=== PATIENT | female | born 1965 ===

== ENCOUNTER 2020-11-11 16:39 | Emergency (ER) | payer MEDICAID, SELFPAY ==
--- NOTE | ~2020-11-11 | CT_ITS ---
EXAMINATION: CT CHEST WITHOUT CONTRAST CLINICAL INFORMATION: Central chest pain radiating to back. HIV-positive not on medication COMPARISON: Chest radiograph 05/16/2017 TECHNIQUE: Multidetector volumetric CT imaging of the chest was done. Axial MIP volume rendering provided. Sagittal and coronal reformatted images were obtained. This CT examination was performed using dose optimization techniques as appropriate, variously including the following: *Automated exposure control *Adjustment of mA and/or kV according to patient size (this includes techniques or standardized protocols for targeted exams where dose is matched to indication/reason for exam; i.e. extremities or head) *Use of iterative reconstruction technique DLP: 164 mGy-cm FINDINGS: LUNGS: Multiple areas of tree-in-bud formation are present in both lungs indicative of airway disease. For example see right upper lobe (5:127) and left upper lobe (5:196). Scattered other small pulmonary nodules are seen the largest measuring 3 mm (5:118). There are is one branching cavitary space which probably represents some bronchiectasis (see lion images and 5:125). MEDIASTINUM: The esophagus is markedly thickened throughout its course suggesting marked esophagitis PLEURA: There is no pleural effusion. No pleural mass or thickening. AXILLA: No lymphadenopathy. UPPER ABDOMEN: An incompletely imaged left staghorn renal calculus is present in the pelvis extending into some lower pole calyces. Gallstones appear to be present. OSSEOUS STRUCTURES: Unremarkable. CT/CT chest wo con IMPRESSION: 1. Marked thickening of the entire esophagus most likely esophagitis. The most common cause in AIDS patients is related to Rosa Maria. This could obviously cause chest pain. Endoscopy or barium swallow could be performed for further evaluation. 2. Inflammatory changes in the lungs with multiple areas of tree-in-bud formation and some small pulmonary nodules. One small branching cavitary space as described above. 3. Incidentally noted left staghorn renal calculus and probable cholelithiasis
[2020-11-11 16:48] VITALS: BP 110/70; BP 97/61; PULSE 70; PULSE 76; RESP 20; TEMP 36.9; O2SAT 97; BMI 20.2
[2020-11-11 17:03] VITALS: BP 115/84
--- NOTE | 2020-11-11 18:29 | ED_ITS ---
HPI - General Adult General Chief complaint: General Medical Stated complaint: HIGH HR/LO BP FROM MD OFFICE PER EMS VS BETTER NOW Time Seen by Provider: 11/11/20 17:52 Source: patient Mode of arrival: EMS Limitations: no limitations History of Present Illness HPI narrative: Patient is a 55-year-old female with a past medical history of HIV infection, not on antivirals, CKD state III, shingles, herpes simplex, asth ma and tobacco use however patient states she quit smoking about a month ago c/o pain with swallowing x 1 month. Patient her throat started hurting, worse when she was swallowing so she reduced her p.o. intake and has had some weight loss, unsure how much. Patient also states that she has pain in her mid chest which radiates to her back. She denies fevers, cough, shortness of breath Patient has records with her which show her labs on 10/06/2020 CD4 count of 23, viral load of 147,000. Patient states she stopped making medications when she ran out when COVID hit in August 2019 and she has not been back to the doctors to get more medications. Related Data Previous Rx's Medication Instructions Recorded nystatin 500,000 unit PO QID 10 Days #200 ml 11/11/20 Allergies Allergy/AdvReac Type Severity Reaction Status Date / Time nevirapine [From VIRAMUNE] Allergy Unknown UNKNOWN Unverified 02/19/20 15:35 penicillin V Allergy Unknown itchy Verified 07/21/15 00:00 Penicillins [PENICILLINS] Allergy Unknown N/A Unverified 02/19/20 15:35 sulfamethoxazole Allergy Unknown UNKNOWN, Unverified 02/19/20 15:35 [From BACTRIM] upset stomach trimethoprim [From BACTRIM] Allergy Unknown UNKNOWN Unverified 02/19/20 15:35 Review of Systems Review of Systems: Yes all other systems are reviewed and are negative PMFSH Past Medical History Medical History No known health problems Social History Social History Patient Tobacco Use Status: Former Tobacco user Use of substances other than those prescribed or required for medical reasons: No Advance Directives: No Advance Directives Information Provided: No Physical Exam Vital Signs: Vital Signs: Last Vital Signs Temp 98.4 F 11/11/20 16:48 Pulse 89 11/11/20 18:46 Resp 20 11/11/20 18:46 BP 102/66 11/11/20 18:46 Pulse Ox 95 11/11/20 18:46 Body Mass Index 20.2 Const: General: cooperative, healthy appearing, comfortable, no acute distress and well developed Orientation/consciousness: patient oriented x3 Limitations: no limitations HENMT: Head: Yes normal to inspection Eyes: General: appearance normal, both eyes and all related structures Neck: Neck: Yes normal visual inspection and Yes full ROM Resp: Effort & Inspection: normal respiratory effort and able to speak in complete sentences Auscultation: clear to auscultation bilaterally Cardio: Rate: regular rate Rhythm: regular rhythm Heart sounds: normal S1 and S2 GI: Inspection: Yes normal to inspection Palpation (GI): Soft to palpation and nontender Skin: General skin exam: no rashes or lesions noted Neuro: General: patient oriented x3 Extrem: General: Yes normal to inspection Course Course Course Narrative: Patient is a 55-year-old female with a past medical history of HIV infection, not on antivirals, CKD state III, shingles, herpes simplex, asthma and tobacco use however patient states she quit smoking about a month ago c/o pain with swallowing x 1 month. Will give nystatin swish and swallow, concern for opportunistic infection. VSS now. Will get CD4 count as well as basic labs, EKG and chest CT. Reevaluation(s) Reevaluation #1: Chest CT shows has softened itis most likely secondary to Rosa Maria. Patient agrees received swish and swallow, will prescribe for outpatient and recommend barium swallow our upper endoscopy outpatient through PCP. Labs resulted so far are WNL, CD4 count and other HIV labs will not results today. Will discharge patient home with close follow up with PCP as VSS. Time: 19:29 Reevaluation #2: Discussed with patient, she says she has a appointment for an upper endoscopy on November 16. Advised she should keep this appointment to verify a thick esophagitis is due to Rosa Maria and not some other pathological process. Patient understands the importance of keeping this appointment and having the upper endoscopy done. Will discharge patient home. Time: 19:39 Medical Decision Making Lab Data Result diagrams: 11/11/20 18:33 11/11/20 18:33 Labs: Lab Results 11/11/20 11/11/20 11/11/20 Range/Units 18:33 18:33 18:33 WBC 9.6 (4.8-10.8) X10*3/uL RBC 4.05 L (4.20-5.50) X10*6/uL Hgb 12.0 (12.0-16.0) g/dl Hct 37.9 (37-47) % MCV 93.6 (80-98) fL MCH 29.6 (27.0-33.0) pg MCHC 31.7 (31.0-35.0) g/dl RDW 12.6 (11.0-16.0) % Plt Count 272 (160-400) X10*3/uL MPV 10.1 (9.4-12.3) fL Immature Gran % (Auto) 0.5 H (0.0-0.4) % Neut % (Auto) 69.2 (45-73) % Lymph % (Auto) 16.7 L (20-40) % Hamilton % (Auto) 9.2 (2-11) % Eos % (Auto) 4.3 H (0-4) % Baso % (Auto) 0.1 (0-2) % Lymph # (Auto) 1.6 (1.2-4.9) X10*3/uL Hamilton # (Auto) 0.9 (0.1-1.2) X10*3/uL Eos # (Auto) 0.4 (0.0-0.4) X10*3/uL Baso # (Auto) 0.0 (0.0-0.2) X10*3/uL Abs Immat Gran (auto) 0.05 H (0.00-0.03) X10*3/uL Absolute Neuts (auto) 6.6 (2.0-8.3) X10*3/uL Absolute Nucleated RBC 0.000 (0.0-0.012) X10*3/uL Nucleated RBC % (auto) 0.0 (0.0-0.2) /100WBC PT 14.7 H (10.8-13.0) SEC INR 1.2 H (0.9-1.1) APTT 29.9 (24.1-38.0) SEC Sodium 142 (135-145) mmol/L Potassium 3.9 (3.3-5.1) mmol/L Chloride 110 H (96-108) mmol/L Carbon Dioxide 24 (22-29) mmol/L Anion Gap 12 (12-20) BUN 20 H (9-16) mg/dL Creatinine 1.36 (0.5-1.4) mg/dL Estim Creat Clear Calc 31.5 Estimated GFR 40 Random Glucose 86 (60-115) mg/dL Calcium 8.7 (8.4-10.2) mg/dL Magnesium 1.7 (1.6-2.6) mg/dL Total Bilirubin 0.3 (0.0-1.0) mg/dL Direct Bilirubin 0.2 (0.0-0.5) mg/dL AST 15 (5-31) U/L ALT < 6 (0-31) U/L Alkaline Phosphatase 64 (39-117) U/L Troponin I High Sens (<3.5-17.0) ng/L Total Protein 6.8 (6.5-8.0) g/dL Albumin 3.6 (3.5-5.0) g/dL 11/11/20 Range/Units 18:33 WBC (4.8-10.8) X10*3/uL RBC (4.20-5.50) X10*6/uL Hgb (12.0-16.0) g/dl Hct (37-47) % MCV (80-98) fL MCH (27.0-33.0) pg MCHC (31.0-35.0) g/dl RDW (11.0-16.0) % Plt Count (160-400) X10*3/uL MPV (9.4-12.3) fL Immature Gran % (Auto) (0.0-0.4) % Neut % (Auto) (45-73) % Lymph % (Auto) (20-40) % Hamilton % (Auto) (2-11) % Eos % (Auto) (0-4) % Baso % (Auto) (0-2) % Lymph # (Auto) (1.2-4.9) X10*3/uL Hamilton # (Auto) (0.1-1.2) X10*3/uL Eos # (Auto) (0.0-0.4) X10*3/uL Baso # (Auto) (0.0-0.2) X10*3/uL Abs Immat Gran (auto) (0.00-0.03) X10*3/uL Absolute Neuts (auto) (2.0-8.3) X10*3/uL Absolute Nucleated RBC (0.0-0.012) X10*3/uL Nucleated RBC % (auto) (0.0-0.2) /100WBC PT (10.8-13.0) SEC INR (0.9-1.1) APTT (24.1-38.0) SEC Sodium (135-145) mmol/L Potassium (3.3-5.1) mmol/L Chloride (96-108) mmol/L Carbon Dioxide (22-29) mmol/L Anion Gap (12-20) BUN (9-16) mg/dL Creatinine (0.5-1.4) mg/dL Estim Creat Clear Calc Estimated GFR Random Glucose (60-115) mg/dL Calcium (8.4-10.2) mg/dL Magnesium (1.6-2.6) mg/dL Total Bilirubin (0.0-1.0) mg/dL Direct Bilirubin (0.0-0.5) mg/dL AST (5-31) U/L ALT (0-31) U/L Alkaline Phosphatase (39-117) U/L Troponin I High Sens < 3.5 (<3.5-17.0) ng/L Total Protein (6.5-8.0) g/dL Albumin (3.5-5.0) g/dL Imaging Data CT scan - chest: Attestation: I personally reviewed and interpreted this imaging study as follows: Radiologist's impression: [address] [id number] Scan ReportSigned Patient: Renetta TeeMR#: [id number]: 1965Acct:[id number]/Sex: 55 / FADM Date: 11/11/20Loc: Gaby Franks: Ordering Physician: Alexus Enriquez PA-C Date of Service: 11/11/20 Procedure(s): CT chest wo con Accession Number(s): [id number] cc: Alexus Enriquez PA-C~ EXAMINATION: CT CHEST WITHOUT CONTRAST CLINICAL INFORMATION: Central chest pain radiating to back. HIV-positive not on medication COMPARISON: Chest radiograph 05/16/2017 TECHNIQUE: Multidetector volumetric CT imaging of the chest was done. Axial MIP volume rendering provided. Sagittal and coronal reformatted images were obtained. This CT examination was performed using dose optimization techniques as appropriate, variously including the following: *Automated exposure control *Adjustment of mA and/or kV according to patient size (this includes techniques or standardized protocols for targeted exams where dose is matched to indication/reason for exam; i.e. extremities or head) *Use of iterative reconstruction technique DLP: 164 mGy-cm FINDINGS: LUNGS: Multiple areas of tree-in-bud formation are present in both lungs indicative of airway disease. For example see right upper lobe (5:127) and left upper lobe (5:196). Scattered other small pulmonary nodules are seen the largest measuring 3 mm (5:118). There are is one branching cavitary space which probably represents some bronchiectasis (see lion images and 5:125). MEDIASTINUM: The esophagus is markedly thickened throughout its course suggesting marked esophagitis PLEURA: There is no pleural effusion. No pleural mass or thickening. AXILLA: No lymphadenopathy. UPPER ABDOMEN: An incompletely imaged left staghorn renal calculus is present in the pelvis extending into some lower pole calyces. Gallstones appear to be present. OSSEOUS STRUCTURES: Unremarkable. CT/CT chest wo con IMPRESSION: 1. Marked thickening of the entire esophagus most likely esophagitis. The most common cause in AIDS patients is related to Rosa Maria. This could obviously cause chest pain. Endoscopy or barium swallow could be performed for further evaluation. 2. Inflammatory changes in the lungs with multiple areas of tree-in-bud formation and some small pulmonary nodules. One small branching cavitary space as described above. 3. Incidentally noted left staghorn renal calculus and probable cholelithiasis Dictated By:SANDOVAL PIERRE MDSigned By:<Electronically signed by SANDOVAL CAMPA MD in OV>11/11/201917 DD/ 57TD/TT: Fiber Glass Worker: HIEN Discharge Plan Discharge Clinical Impression: Esophagitis due to HIV Patient Disposition: Home, Self-Care Instructions: Esophagitis (ED) Additional Instructions: As discussed, please be sure to keep your appointment on November 16 for your upper endoscopy as this can confirm that your esophagitis is due to Rosa Maria and that no other processes going on. If you have chest pain, shortness of breath, throat swelling or your unable to swallow your own secretions, please call 911 or return to the emergency department. Prescriptions: New nystatin 100,000 unit/mL suspension 500,000 unit PO QID 10 Days Qty: 200 RF: 0 Referrals: Theodora Sampson MD [Primary Care Provider] - 1 week (Esophagitis likely secondary to Rosa Maria)
[2020-11-11 18:38] LABS: MANUAL DIFF FLAG NO
[2020-11-11 18:42] LABS: Basophils Percent Auto 0.1 % (0-2); Eosinophils Absolute Auto 0.4 X10*3/uL (0.0-0.4); Eosinophils Percent Auto 4.3 % (0-4); Hematocrit 37.9 % (37-47); Imm Gran Abs Auto 0.05 X10*3/uL (0.00-0.03); Imm Gran Pct Auto 0.5 % (0.0-0.4); Lymphocytes Absolute Auto 1.6 X10*3/uL (1.2-4.9); Lymphocytes Percent Auto 16.7 % (20-40); Mean Corpuscular HGB Conc 31.7 g/dl (31.0-35.0); Mean Corpuscular Hemoglobin 29.6 pg (27.0-33.0); Mean Corpuscular Volume 93.6 fL (80-98); Mean Platelet Volume 10.1 fL (9.4-12.3); Monocytes Absolute Auto 0.9 X10*3/uL (0.1-1.2); Monocytes Percent Auto 9.2 % (2-11); Neutrophils Absolute Auto 6.6 X10*3/uL (2.0-8.3); Neutrophils Percent Auto 69.2 % (45-73); Platelet Count 272 X10*3/uL (160-400); Red Blood Count 4.05 X10*6/uL (4.20-5.50); Red Cell Distribution Width 12.6 % (11.0-16.0); White Blood Count 9.6 X10*3/uL (4.8-10.8)
[2020-11-11] MEDS: Nystatin Oral Susp 500,000 UNIT/5 ML ORAL.SUSP 400000 UNIT PO (18:45)
[2020-11-11 18:46] VITALS: BP 102/66; PULSE 89; RESP 20; O2SAT 95
[2020-11-11 18:47] LABS: INTERNATIONAL NORM RATIO 1.2 (0.9-1.1); Prothrombin Time 14.7 SEC (10.8-13.0)
[2020-11-11 18:50] LABS: Partial Thromboplastin Time 29.9 SEC (24.1-38.0)
[2020-11-11 19:12] LABS: Alanine Aminotransferase < 6 U/L (0-31); Albumin Level 3.6 g/dL (3.5-5.0); Alkaline Phosphatase 64 U/L (39-117); Anion Gap 12 (12-20); Aspartate Amino Transferase 15 U/L (5-31); Bilirubin Direct 0.2 mg/dL (0.0-0.5); Bilirubin Total 0.3 mg/dL (0.0-1.0); Calcium 8.7 mg/dL (8.4-10.2); Carbon Dioxide 24 mmol/L (22-29); Chloride 110 mmol/L (96-108); Creatinine Clr Calc Pharmacy 31.5; Estimated Glomerular Filt Rate 40; Glucose Random 86 mg/dL (60-115); Magnesium 1.7 mg/dL (1.6-2.6); Potassium 3.9 mmol/L (3.3-5.1); Sodium 142 mmol/L (135-145); Total Protein 6.8 g/dL (6.5-8.0)
[2020-11-11 19:16] LABS: Troponin-I High Sensitivity < 3.5 ng/L (<3.5-17.0)
[2020-11-11 19:22] LABS: Blood Urea Nitrogen 20 mg/dL (9-16)
[2020-11-15 13:52] LABS: Absolute CD3 Count 1277 cells/uL (840-3060); Absolute CD4 Count 29 cells/uL (490-1740); Absolute CD8 Count 1248 cells/uL (180-1170); Absolute Lymphocytes 1496 cells/uL (850-3900); CD4 CD8 Ratio 0.02 (0.86-5.00); Percent CD3 Cells 85 % (57-85); Percent CD4 Cells 2 % (30-61); Percent CD8 Cells 83 % (12-42)
== END 2020-11-11 20:07 | disposition home or self-care (01) ==
PROVIDERS: Physician Assistant; Emergency Provider Emergency Medicine; PCP Family Medicine
DX: K20.90 Esophagitis, unspecified without bleeding (principal); B20 Human immunodeficiency virus [HIV] disease; N18.30 Chronic kidney disease, stage 3 unspecified; Z87.891 Personal history of nicotine dependence
CPT/HCPCS: 36415; 71250; 80048; 80076; 83735; 84484; 85025; 85610; 85730; 86359; 86360; 99284

== ENCOUNTER → 2020-11-16 11:43 | Outpatient (BNVA) | payer MEDICAID, SELFPAY | PROVIDERS: PCP Family Medicine; Referring Provider Family Medicine; Visit Provider Nurse Practitioner Family | DX: R13.10 Dysphagia, unspecified (principal); B20 Human immunodeficiency virus [HIV] disease | CPT/HCPCS: 99202 ==

== ENCOUNTER 2021-01-06 10:44 | Day surgery (SDC) | payer MEDICAID, SELFPAY ==
--- NOTE | 2021-01-05 09:01 | P.CONAN_ITS ---
Documented by User: Hillary Vo 01/05/21 09:05 HPI - Anesthesia Eval Consult details Narrative: 55yo F for Upper Endoscopy PMFSH Past Medical History Medical History Asthma CKD (chronic kidney disease) HIV infection Social History Social History Patient Tobacco Use Status: Former Tobacco user Tobacco use type: Cigarette Smoked in Last 30 Days: No Use of substances other than those prescribed or required for medical reasons: No Are you DNR?: No Advance Directives: No Advance Directives Information Provided: Yes Recently lost weight without trying: Yes How much weight loss: 14-23 pounds Nutrition Risks: No Nutritional Risk Patient : No Meds Allergies Allergy/AdvReac Type Severity Reaction Status Date / Time nevirapine [From VIRAMUNE] Allergy Unknown UNKNOWN Verified 11/16/20 11:52 penicillin V Allergy Unknown itchy Verified 11/16/20 11:52 Penicillins [PENICILLINS] Allergy Unknown N/A Verified 11/16/20 11:52 sulfamethoxazole Allergy Unknown UNKNOWN, Verified 11/16/20 11:52 [From BACTRIM] upset stomach trimethoprim [From BACTRIM] Allergy Unknown UNKNOWN Verified 11/16/20 11:52 Home Medications Medication Instructions Recorded Confirmed Last Taken Type albuterol sulfate 90 mcg/actuation 2 puff INHALATION Q6H PRN 11/16/20 Unknown History aerosol inhaler hydrocortisone 1 % topical cream 1 appl TOPICAL TID PRN 11/16/20 Unknown History (Anti-Itch (hydrocortisone)) Exam Exam Date and Time: January 05, 2021 0901 Pertinent Lab Results Pertinent Lab Results: Laboratory Tests 11/11/20 11/11/20 18:33 18:33 WBC 9.6 Hgb 12.0 Hct 37.9 Plt Count 272 Sodium 142 Potassium 3.9 Chloride 110 H Carbon Dioxide 24 BUN 20 H Creatinine 1.36 Laboratory Tests 11/11/20 18:33 Total Lymphocytes 1496 % CD3 Cells 85 Absolute CD3 Count 1277 % CD4 Cells 2 L Absolute CD4 Count 29 L CD4/CD8 Ratio 0.02 L % CD8 Cells 83 H Absolute CD8 Count 1248 H Assessment and Plan Assessment Anesthesia Assessment: Chart Reviewed Documented by User: Julian Butterfield 01/06/21 11:48 [facility] Past Medical History Medical History Asthma CKD (chronic kidney disease) HIV infection Cognitive capacity: AAO X3 Functional capacity: independent ambulation Family History Family history of problems with anesthesia: No Surgical History History of Problems with Anesthesia: No Social History Social History Patient Tobacco Use Status: Former Tobacco user Tobacco use type: Cigarette Smoked in Last 30 Days: No Use of substances other than those prescribed or required for medical reasons: No Are you DNR?: No Advance Directives: No Advance Directives Information Provided: Yes Recently lost weight without trying: Yes How much weight loss: 14-23 pounds Nutrition Risks: No Nutritional Risk Patient : No Meds Allergies Allergy/AdvReac Type Severity Reaction Status Date / Time nevirapine [From VIRAMUNE] Allergy Unknown UNKNOWN Verified 11/16/20 11:52 penicillin V Allergy Unknown itchy Verified 11/16/20 11:52 Penicillins [PENICILLINS] Allergy Unknown N/A Verified 11/16/20 11:52 sulfamethoxazole Allergy Unknown UNKNOWN, Verified 11/16/20 11:52 [From BACTRIM] upset stomach trimethoprim [From BACTRIM] Allergy Unknown UNKNOWN Verified 11/16/20 11:52 Home Medications Medication Instructions Recorded Confirmed Last Taken Type albuterol sulfate 90 mcg/actuation 2 puff INHALATION Q6H PRN 11/16/20 Unknown History aerosol inhaler hydrocortisone 1 % topical cream 1 appl TOPICAL TID PRN 11/16/20 Unknown History (Anti-Itch (hydrocortisone)) Exam Airway Mallampati Class: II TM Dist: >3cm Neck ROM: Full Denture: Upper and Lower Heart: [id number] Lungs: cta b/l Assessment and Plan Assessment Anesthesia Assessment: Anesthesia Plan Discussed and PAT Visit Final Anesthetic Review Family History of Problems with Anesthesia: No History of Problems with Anesthesia: No NPO: Yes ASA Class: III Final Preanesthetic Review: No Changes in Pt Med Stat, Meds/Allgs Chart Reviewed, Consent Obtained/Reviewed and Anes Risks/Benef Reviewed Patient Risk: Intermediate Procedure Risk: Low Assessment/Block/Sedation in SS: Assess/Block/Sedation-SS Anesthetic Plan Anesthetic Plan: MAC: and Agree w/ Assess. and Plan Disposition: Standard PACU
[2021-01-06 10:49] VITALS: BMI 21.6
[2021-01-06 11:01] VITALS: BP 117/75; PULSE 61; RESP 16; TEMP 36.3; O2SAT 97
[2021-01-06] MEDS: Lactated Ringers 1,000 ML 50 ML IVCONT (11:10)
--- NOTE | 2021-01-06 11:15 | MHC.SHP ---
Pre-Procedural Eval Section A Date of Service: 01/06/21 Section B Chief Complaint: dysphagia Details of Present Illness: sx much improved with nystatin Relevant Family History (Specify if Yes): No Relevant Social History: None (ex smoker) Medical History: Significant History (istory of HIV infection, not on antivirals, CKD state III, shingles, herpes simplex, asthma) History of Previous Operations: No relevant previous surgery Allergies: Allergies Allergy/AdvReac Type Severity Reaction Status Date / Time nevirapine [From VIRAMUNE] Allergy Unknown UNKNOWN Verified 11/16/20 11:52 penicillin V Allergy Unknown itchy Verified 11/16/20 11:52 Penicillins [PENICILLINS] Allergy Unknown N/A Verified 11/16/20 11:52 sulfamethoxazole Allergy Unknown UNKNOWN, Verified 11/16/20 11:52 [From BACTRIM] upset stomach trimethoprim [From BACTRIM] Allergy Unknown UNKNOWN Verified 11/16/20 11:52 Review of Systems Sugical H&P ROS: Negative: Constitution, Cardiovascular, Respiratory, Neurological, Psychiatric, Hem-Onc, Allergic/Immunologic, Gastrointestinal, Genitourinary, Musculoskeletal, Integumentary, Endocrine and Eyes/Ears/Nose/Throat Exam Surgical H&P Exam: Normal: HEENT, Normal: Heart, Normal: Lungs, Normal: Extremities, Normal: Abdomen, Normal: Skin and Normal: Neurological Plan Diagnosis/Plan: Unchanged I have reviewed the history and physical and performed a pertinent physical examination on my patient. No changes have occurred unless specified.
--- NOTE | 2021-01-06 11:43 | P.BOP_ITS ---
Brief Operative Note Date of Service: 01/06/21 Pre-op diagnosis: dysphagia and painful swallowing Post-op diagnosis: same Procedure: see op note Surgeon: Zayda Baltazar MD Anesthesia: MAC Was an Wood Heel Flap Rubber used for this Procedure?: No Estimated blood loss (mL): 0 Condition: stable Disposition: PACU
--- NOTE | 2021-01-06 11:43 | W.PM.OPN ---
Operative Note Operative Note Date of Service: 01/06/21 Narrative: Procedure Description: EGD FLEXIBLE TRANSORAL UPPER GASTROINTESTINAL ENDOSCOPY UPPER ENDOSCOPY Consent: Indications for the procedure and potential complications of bleeding, perforation, reaction to medications and missed diagnosis were discussed with the patient and informed consent was obtained. Instrument: Olympus GIF H 190 J mid size upper endoscope Monitoring: Vital signs and clinical assessment, continuous EKG monitoring, Pulse oximetry, Carbon Dioxide monitoring and blood pressure monitoring were done throughout the procedure. Procedure: The patient was placed in the left lateral decubitis position and pre-procedure medications were administered and a bite block was placed. The endoscope was inserted into the mouth and advanced under direct vision to the third part of duodenum. A careful inspection was made as the upper endoscope was withdrawn including a retroflexed examination of the proximal stomach; Findings and interventions are described below. Findings: Larynx:normal Esophagus: GE junction at 38 cm, diaphragm hiatus at 38 cm, few islands of edward appearing mucosa, bx taken, random esophagus bx also taken, no ulcers seen Stomach: Patchy gastric erythema. Biopsies were obtained. Grade 2 flap valve on retroflexed examination of the cardia. In fundus there was a whitish polypoid lesion with nodular appearance 8-9 mm removed with biopsy forceps Duodenum: Normal bulb and descending duodenum, bx taken Intervention: Biopsies as noted above Impression/Findings: stomach polyp gastritis possible barretts PLAN: await bx she feels better, may have had key hence improvement with nystatin
[2021-01-06 12:10] VITALS: BP 98/76; PULSE 76; RESP 14; TEMP 36.1; O2SAT 98
[2021-01-06 12:25] VITALS: BP 94/57; PULSE 69; RESP 16; O2SAT 98
[2021-01-06 12:40] VITALS: BP 110/74; PULSE 64; RESP 16; TEMP 36.1; O2SAT 99
== END 2021-01-06 13:50 | disposition home or self-care (01) ==
PROVIDERS: PCP Family Medicine; Visit Provider Internal Medicine Gastroenterology
PROC: 0DJ08ZZ Inspection of Upper Intestinal Tract, Via Natural or Artificial Opening Endoscopic (ICD-10-PCS; CPT 43235; principal; 2021-01-06 12:10)
DX: R13.10 Dysphagia, unspecified (principal); K31.7 Polyp of stomach and duodenum; K44.9 Diaphragmatic hernia without obstruction or gangrene; N18.9 Chronic kidney disease, unspecified; B20 Human immunodeficiency virus [HIV] disease; J45.909 Unspecified asthma, uncomplicated; Z87.891 Personal history of nicotine dependence; Z79.899 Other long term (current) drug therapy; Z88.0 Allergy status to penicillin; Z88.2 Allergy status to sulfonamides; K29.50 Unspecified chronic gastritis without bleeding
CPT/HCPCS: 43239; 88305; 88342

== ENCOUNTER 2021-01-17 09:48 | Outpatient (REF) | payer MEDICAID, SELFPAY ==
--- NOTE | ~2021-01-17 | XR_ITS ---
EXAMINATION: XR CHEST CLINICAL INFORMATION: Wheezing. COMPARISON: CT chest dated 11/11/2020. TECHNIQUE: 2 views of the chest were obtained. FINDINGS: The lungs are clear. The cardiomediastinal silhouette is normal in size. There is no pleural effusion or pneumothorax. No acute osseous abnormality. XR/XR chest 2V IMPRESSION: No acute cardiopulmonary findings.
--- NOTE | ~2021-01-17 | MM_ITS ---
EXAMINATION: MM SCREENING DIGITAL BREAST TOMOSYNTHESIS, BILATERAL CLINICAL INFORMATION: Screening. Asymptomatic. The lifetime risk of breast cancer based on the Tyrer-Cuzick Model is 9%. COMPARISON: Mammography: 08/28/2018, 08/20/2017, 02/15/2017 TECHNIQUE: Digital breast tomosynthesis is performed in both the craniocaudal and mediolateral oblique views along with computer-aided detection (CAD). Synthesized 2D images are generated from the tomosynthesis. FINDINGS: There are scattered areas of fibroglandular density (ACR BI-RADS breast composition Category b). There are no significant masses, abnormal calcifications, or other abnormalities. Parenchymal pattern is similar to prior studies. The axilla and skin contours are unremarkable. MM/MM tomosynthesis screening BI IMPRESSION: No mammographic evidence of malignancy. ASSESSMENT: BI-RADS 1: Negative RECOMMENDATION: Routine annual mammography screening. This patient's information was entered into a reminder system with a target due date for their next mammogram.
== END 2021-01-17 09:49 | disposition home or self-care (01) ==
LOC: HO.MAMMO 09:48
PROVIDERS: PCP Family Medicine; Visit Provider Family Medicine
DX: Z12.31 Encounter for screening mammogram for malignant neoplasm of breast (principal); R06.2 Wheezing; R09.89 Other specified symptoms and signs involving the circulatory and respiratory systems; R91.8 Other nonspecific abnormal finding of lung field
CPT/HCPCS: 71046; 77063; 77067

== ENCOUNTER → 2021-02-01 09:56 | Outpatient (BNVA) | payer MEDICAID, SELFPAY | PROVIDERS: PCP Family Medicine; Visit Provider Nurse Practitioner Family | DX: K21.9 Gastro-esophageal reflux disease without esophagitis (principal) | CPT/HCPCS: 99212 ==

== ENCOUNTER 2021-04-15 13:06 | Emergency (ER) | payer MEDICAID, SELFPAY ==
--- NOTE | ~2021-04-15 | XR_ITS ---
EXAMINATION: RIGHT KNEE X-RAY CLINICAL INFORMATION: Pain COMPARISON: Previous x-ray September 2016 TECHNIQUE: 4 views of the right knee FINDINGS: Bone alignment is normal. No fracture or dislocation is seen. The joint spaces are normal. There is no joint effusion. XR/XR knee RT 4V IMPRESSION: Normal exam. EXAMINATION: Right foot x-ray CLINICAL INFORMATION: Pain right first and second toes COMPARISON: None. TECHNIQUE: 3 views of the right foot FINDINGS: Bone alignment is normal. No fracture or dislocation is seen. There is arthritis at the first MTP joint with joint space narrowing and osteophyte formation. There is adjacent soft tissue swelling over the medial first metatarsal head. No erosive changes or soft tissue calcification is seen. Joint spaces and soft tissues are otherwise unremarkable. IMPRESSION: Arthritis at the first MTP joint.
--- NOTE | ~2021-04-15 | XR_ITS ---
EXAMINATION: RIGHT KNEE X-RAY CLINICAL INFORMATION: Pain COMPARISON: Previous x-ray September 2016 TECHNIQUE: 4 views of the right knee FINDINGS: Bone alignment is normal. No fracture or dislocation is seen. The joint spaces are normal. There is no joint effusion. XR/XR foot RT 2V IMPRESSION: Normal exam. EXAMINATION: Right foot x-ray CLINICAL INFORMATION: Pain right first and second toes COMPARISON: None. TECHNIQUE: 3 views of the right foot FINDINGS: Bone alignment is normal. No fracture or dislocation is seen. There is arthritis at the first MTP joint with joint space narrowing and osteophyte formation. There is adjacent soft tissue swelling over the medial first metatarsal head. No erosive changes or soft tissue calcification is seen. Joint spaces and soft tissues are otherwise unremarkable. IMPRESSION: Arthritis at the first MTP joint.
[2021-04-15 13:37] VITALS: BP 136/81; PULSE 61; RESP 18; TEMP 36.7; O2SAT 94; BMI 21.6
--- NOTE | 2021-04-15 14:23 | ED_ITS ---
HPI - Extremity Problem General Chief complaint: General Medical Stated complaint: knee & foot pain Time Seen by Provider: 04/15/21 13:52 Source: patient Mode of arrival: ambulatory Limitations: no limitations History of Present Illness HPI Narrative: 55-year-old female with a past medical history of HIV, shingles, asthma and CKD presenting to the ED with complaints of right knee pain for years due to a shingles infection she had years ago and she also complains of a separate complaint of right great toe pain/swelling/redness for the past few days worse today. Denies any other symptoms complaints or concerns at this time. Denies a history of gout. MD Complaint: extremity pain and extremity swelling Onset (ago): day(s) (For the past few days worse today) Pain Consistency: constant Location: right, lower extremity (Knee) and toe (Great) Severity scale (1-10): >10 Quality: aching and constant Radiation: none Relieving factors: nothing Exacerbating factors: range of motion, weight bearing, walking and palpation Associated symptoms: denies other symptoms Context: other (History of shingles to the right knee and since then has been having this pain for years to the right knee) Related Data Home Medications Medication Instructions Recorded Confirmed albuterol sulfate 90 mcg/actuation 2 puff INHALATION Q6H PRN 11/16/20 aerosol inhaler hydrocortisone 1 % topical cream 1 appl TOPICAL TID PRN 11/16/20 (Anti-Itch (hydrocortisone)) Previous Rx's Medication Instructions Recorded nystatin 100,000 unit/mL oral 500,000 unit (5 mL) PO QID 10 Days 11/16/20 suspension #200 ml pantoprazole 40 mg tablet,delayed 40 mg PO DAILY #30 tab 02/01/21 release cephalexin 500 mg capsule 500 mg PO Q6H 10 Days #40 cap 04/15/21 doxycycline monohydrate 100 mg 100 mg PO BID 10 Days #20 cap 04/15/21 capsule indomethacin 50 mg capsule 50 mg PO Q8H 7 Days #21 cap 04/15/21 oxycodone 5 mg tablet 5 mg PO Q6H PRN #14 tab 04/15/21 prednisone 20 mg tablet 40 mg PO DAILY 5 Days #10 tab 04/15/21 Allergies Allergy/AdvReac Type Severity Reaction Status Date / Time nevirapine [From VIRAMUNE] Allergy Unknown UNKNOWN Verified 04/15/21 13:36 penicillin V Allergy Unknown itchy Verified 04/15/21 13:36 Penicillins [PENICILLINS] Allergy Unknown N/A Verified 04/15/21 13:36 sulfamethoxazole Allergy Unknown UNKNOWN, Verified 04/15/21 13:36 [From BACTRIM] upset stomach trimethoprim [From BACTRIM] Allergy Unknown UNKNOWN Verified 04/15/21 13:36 Review of Systems Review of Systems: Constitutional : No Weight loss, No Fever, No Chills, No Night Sweats, No Fatigue, No Malaise ENT/Mouth : No Hearing loss, No Ear Pain, No Nasal Congestion, No Sinus Pain, No Hoarseness, No sore throat, No Rhinorrhea, No Swallowing Difficulty Eyes: No Eye Pain, No Swelling, No Redness, No Foreign Body, No Discharge, No Vision Changes Cardiovascular : No Chest Pain, No SOB, No Dyspnea on Exertion, No Orthopnea, No Edema, No Palpitations Respiratory : No Cough, No Sputum, No Wheezing, No Smoke Exposure, No Dyspnea Gastrointestinal : No Nausea, No Vomiting, No Diarrhea, No Constipation, No abdominal Pain, No Hematochezia, No Melena Genitourinary : no irregular bleeding, No Dysuria, No Urinary Frequency, No Hematuria, No Urinary Incontinence, No Urgency, No Flank Pain, No Urinary Flow Changes, No Hesitancy Musculoskeletal : + right knee joint pain, + right great toe/2nd toe joint pain/swelling/surrounding erythema, No Myalgias Skin : No Skin Lesions, No rash Neuro : No Weakness, No Numbness, No Paresthesias, No Loss of Consciousness, No Dizziness, No Headache Psych : No Anxiety/Panic, No Depression, No SI/HI/AH/VH, No Social Issues, Heme/Lymph: No Bruising, No Bleeding,No Lymphadenopathy Endocrine : No Polyuria, No Polydipsia, No Temperature Intolerance Yes all other systems are reviewed and are negative [facility] Past Medical History Attestation statement: The following information was validated with the patient. Medical History Asthma CKD (chronic kidney disease) HIV infection Shingles Surgical History Hx of esophagogastroduodenoscopy Social History Social History Patient Tobacco Use Status: Former Tobacco user Tobacco use type: Cigarette Advance Directives: No Advance Directives Information Provided: No Patient : No Physical Exam Vital Signs: Vital Signs: Last Vital Signs Temp 98.1 F 04/15/21 13:37 Pulse 61 04/15/21 13:37 Resp 18 04/15/21 13:37 BP 136/81 04/15/21 13:37 Pulse Ox 94 04/15/21 13:37 Body Mass Index 21.6 vital signs have been reviewed as normal and appeared to be correct. Blood pressure normal. Heart rate normal. Respiration rate normal. Temperature normal. Oxygen saturation normal. Appearance: Alert. Oriented X3. No acute distress. Head: Normal external exam. Normocephalic. Atraumatic. Eyes: PERRLA. EOMI. Conjunctiva and sclera normal. Eyelids normal. ENT: Pharynx normal. Uvula midline. Moist mucous membranes. Neck: Normal inspection. Neck supple. FROM. No adenopathy. No meningeal signs. No neck mass noted. CVS: Normal heart rate and rhythm. Heart sound normal. Pulses normal throughout. No murmurs/rales/gallops. Respiratory: No respiratory distress. Painless inspiration. Breath sounds normal. No wheezes/rales/rhonchi noted. Chest nontender. No accessory muscle usage noted or decreased air movement noted. Back: Full range of motion noted. No rashes/lesion/induration/fluctuance or signs of infection noted. Skin: Skin warm and dry. Normal skin color. Normal skin turgor. No rashes/lesions/lacerations noted. Extremities: Patient with tenderness to palpation to the right medial aspect of the knee no obvious ligamentous or tendon injury. No signs of infection. No lower extremity edema or calf tenderness is noted. To the right great toe/2nd toe at the MTP patient has moderate tenderness all patient/soft tissue swelling/erythema I am between gout and cellulitis. Otherwise no streaki ng/induration/fluctuance or foreign bodies or obvious signs of trauma or obvious ligamentous or tendon injury. Otherwise all other Extremities exhibit normal range of motion and nontender. Neuro: Oriented X 3. No motor deficit. No sensory deficit. Reflexes normal. Normal steady gait. No focal neuro deficits noted. Vascular: + radial pulses/+ 2 distal pedal pulses/+2 dorsalis pedis b/l. Normal cap refill. No cyanosis noted to upper extremity nails and lower extremity toes nails. Course Course Course Narrative: 55-year-old female with a past medical history of HIV, shingles, asthma and CKD presenting to the ED with complaints of right knee pain for years due to a shingles infection she had years ago and she also complains of a separate complaint of right great toe pain/swelling/redness for the past few days worse today. Denies any other symptoms complaints or concerns at this time. Denies a history of gout. Right knee x-ray negative for any acute processes. Right foot x-ray revealed arthritis at the 1st MTP joint. Although on my exam it appears that the patient has gout versus cellulitis therefore will treat for gout and cellulitis instructions to follow-up with her primary care provider for blood work and to return if any new or worsening symptoms. Patient understands agrees with this plan. MDM - Extremity (Nontraumatic) Imaging Data Knee/right foot x-rays: Attestation: I personally reviewed and interpreted this imaging study as follows: Radiologist's impression: EXAMINATION: RIGHT KNEE X-RAY CLINICAL INFORMATION: Pain? COMPARISON: Previous x-ray September 2016? TECHNIQUE: 4 views of the right knee? FINDINGS: Bone alignment is normal. No fracture or dislocation is seen. The joint spaces are normal. There is no joint effusion.? XR/XR knee RT 4V IMPRESSION: Normal exam. ? EXAMINATION: Right foot x-ray ? CLINICAL INFORMATION: Pain right first and second toes? ? COMPARISON: None.? ? TECHNIQUE: 3 views of the right foot? ? FINDINGS: Bone alignment is normal. No fracture or dislocation is seen. There is arthritis at the first MTP joint with joint space narrowing and osteophyte formation. There is adjacent soft tissue swelling over the medial first metatarsal head. No erosive changes or soft tissue calcification is seen. Joint spaces and soft tissues are otherwise unremarkable.? ? IMPRESSION: Arthritis at the first MTP joint.?? Discharge Plan Discharge Clinical Impression: Gout, Cellulitis Patient Disposition: Home, Self-Care Instructions: Cellulitis (ED), Low Purine Diet (ED), Gout (ED) Prescriptions: New indomethacin 50 mg capsule 50 mg PO Q8H 7 Days Qty: 21 RF: 0 prednisone 20 mg tablet 40 mg PO DAILY 5 Days Qty: 10 RF: 0 doxycycline monohydrate 100 mg capsule 100 mg PO BID 10 Days Qty: 20 RF: 0 cephalexin 500 mg capsule 500 mg PO Q6H 10 Days Qty: 40 RF: 0 oxycodone 5 mg tablet 5 mg PO Q6H PRN (Reason: pain) Qty: 14 RF: 0 No Action hydrocortisone [Anti-Itch (HC)] 1 % cream 1 appl topical TID PRNRF: 0 albuterol sulfate 90 mcg/actuation HFA aerosol inhaler 2 puff inhalation Q6H PRNRF: 0 nystatin 100,000 unit/mL suspension 500,000 unit PO QID 10 Days Qty: 200 RF: 0 pantoprazole 40 mg tablet,delayed release (DR/EC) 40 mg PO DAILY Qty: 30 RF: 3 Referrals: Theodora Sampson MD [Primary Care Provider] - 2 days (Please follow-up with your primary care provider for gout testing) Print Language: Amharic
[2021-04-15] MEDS: Indomethacin 25 MG CAPSULE 50 MG PO (14:49)
[2021-04-15] MEDS: oxyCODONE HCl Immed Release 5 MG TABLET PO (14:50)
[2021-04-15] MEDS: predniSONE 20 MG TABLET 40 MG PO (14:50)
== END 2021-04-15 14:59 | disposition home or self-care (01) ==
PROVIDERS: Emergency Provider Emergency Medicine Emergency Medical Services; PCP Family Medicine
DX: M10.9 Gout, unspecified (principal); L03.115 Cellulitis of right lower limb; N18.9 Chronic kidney disease, unspecified; J45.909 Unspecified asthma, uncomplicated; Z21 Asymptomatic human immunodeficiency virus [HIV] infection status
CPT/HCPCS: 73564; 73620; 99283; 99284

== ENCOUNTER 2021-04-25 16:50 | Emergency (ER) | payer MEDICAID, SELFPAY ==
--- NOTE | 2021-04-25 19:06 | PC.NURSE ---
pt not in the waiting room when called.
--- NOTE | 2021-04-25 19:21 | PC.NURSE ---
pt not in the waiting room lwt
== END 2021-04-25 19:05 | disposition left against medical advice (07) ==
PROVIDERS: Emergency Provider Emergency Medicine; PCP Family Medicine
DX: M25.569 Pain in unspecified knee (principal)

== ENCOUNTER 2021-04-26 09:43 | Emergency (ER) | payer MEDICAID, SELFPAY ==
[2021-04-26 10:06] VITALS: BP 130/80; PULSE 75; RESP 18; TEMP 36.3; O2SAT 96; BMI 21.5
== END 2021-04-26 20:05 | disposition left against medical advice (07) ==
PROVIDERS: Emergency Provider Emergency Medicine; PCP Family Medicine
DX: M79.674 Pain in right toe(s) (principal); M25.561 Pain in right knee
CPT/HCPCS: 99281

== ENCOUNTER 2021-07-30 15:46 | Emergency (ER) | payer MEDICAID, SELFPAY ==
[2021-07-30 16:00] VITALS: BP 133/85; PULSE 73; RESP 15; TEMP 36.6; O2SAT 96; BMI 22.0
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
[2021-07-30 17:23] VITALS: PULSE 73; RESP 16; TEMP 36.6; O2SAT 96
== END 2021-07-30 17:30 | disposition home or self-care (01) ==
PROVIDERS: Emergency Provider Emergency Medicine Emergency Medical Services; PCP Family Medicine
DX: S16.1XXA Strain of muscle, fascia and tendon at neck level, initial encounter (principal); V43.62XA Car passenger injured in collision with other type car in traffic accident, initial encounter; W22.12XA Striking against or struck by front passenger side automobile airbag, initial encounter; Y93.89 Activity, other specified; Y92.414 Local residential or business street as the place of occurrence of the external cause; Y99.8 Other external cause status
CPT/HCPCS: 99283; 99284

== ENCOUNTER 2021-09-14 11:00 | Outpatient (REF) | payer MEDICAID, SELFPAY ==
--- NOTE | ~2021-09-14 | US_ITS ---
EXAMINATION: US RETROPERITONEAL LIMITED (RENAL ONLY) CLINICAL INFORMATION: Chronic kidney disease, stage 3. Renal calculus. COMPARISON: Ultrasound kidneys and bladder 04/10/2014. CT abdomen and pelvis 11/30/2010. TECHNIQUE: Real-time imaging of the kidneys. FINDINGS: RIGHT KIDNEY: 8.6 x 4.1 x 4.1 cm (SAG x AP x TRV). The kidney is small. Renal cortical echogenicity appears increased. Renal cortical thickness is normal. There are multiple small cysts, largest measuring 1.2 x 0.9 x 1.1 cm in the lower pole. There is question of a 3 mm stone versus milk of calcium cyst or cyst wall calcification in the lower pole. No hydronephrosis. LEFT KIDNEY: 8.3 x 4.3 x 4.7 cm (SAG x AP x TRV). The kidney is small. Renal cortical echogenicity appears increased. Renal cortical thickness is normal. There are multiple small cysts, largest measuring 8 mm in the midpole. There is question of a stone in the midpole adjacent to a cyst versus milk of calcium cyst or cyst wall calcification measuring 3 mm. No hydronephrosis. The bladder is not optimally distended. US/US renal BI IMPRESSION: Small kidneys with increased renal cortical echogenicity suggestive of medical renal disease. Multiple small bilateral renal cysts.
== END 2021-09-14 11:01 | disposition home or self-care (01) ==
LOC: HO.US 11:00
PROVIDERS: Visit Provider Family Medicine
DX: N20.0 Calculus of kidney (principal); N18.30 Chronic kidney disease, stage 3 unspecified
CPT/HCPCS: 76775

== ENCOUNTER 2022-01-31 08:55 | Emergency (ER) | payer MEDICAID, SELFPAY ==
[2022-01-31 08:58] VITALS: BP 115/79; PULSE 92; RESP 16; TEMP 36.4; O2SAT 99; BMI 20.2
--- NOTE | 2022-01-31 09:28 | ED.SKABFB ---
HPI - Skin/Abscess/Foreign Bdy General Chief complaint: Skin/Abscess/Foreign Body Stated complaint: Rash on arm, neck, face Time Seen by Provider: 01/31/22 09:13 Source: patient Mode of arrival: ambulatory Limitations: no limitations History of Present Illness HPI narrative: 56-year-old female with a history of CKD, HIV, shingles, asthma who presents to the ER for evaluation of a itchy rash to her bilateral arms, chest, face and neck. This started a couple of days ago. She has been outside a lot lately but cannot recall if she has been around poison kaiden or poison oak. She reports that started on her left forearm, spread to her right forearm, chest and now face and neck. It is very itchy. It is red and raised. She denies any new lotions, creams, soaps, detergents. She also reports behind her ears, left greater than right is red, hot skin with foul smelling discharge. She denies any fever or chills. She has been using calamine lotion to the arms with minimal relief. MD complaint: rash and abscess/boil Onset (ago): day(s) Location: face, neck, chest, LUE and RUE Severity: moderate Severity scale (1-10): 5 Quality: constant and pruritic Pain Consistency: constant Relieving factors: none Exacerbating factors: none Context: none Associated symptoms: denies other symptoms Treatments prior to arrival: none Related Data Home Medications Medication Instructions Recorded Confirmed albuterol sulfate 90 mcg/actuation 2 puff inhalation Q6H PRN 11/16/20 aerosol inhaler hydrocortisone 1 % topical cream 1 appl topical TID PRN 11/16/20 (Anti-Itch (hydrocortisone)) Previous Rx's Medication Instructions Recorded nystatin 100,000 unit/mL oral 500,000 unit (5 mL) PO QID 10 days 11/16/20 suspension #200 mL cephalexin 500 mg capsule 500 mg PO Q6H 10 days #40 caps 04/15/21 doxycycline monohydrate 100 mg 100 mg PO BID 10 days #20 caps 04/15/21 capsule indomethacin 50 mg capsule 50 mg PO Q8H gout 7 days #21 caps 04/15/21 oxycodone 5 mg tablet 5 mg PO Q6H PRN pain #14 tabs 04/15/21 prednisone 20 mg tablet 40 mg PO DAILY rash 5 days #10 tabs 04/15/21 pantoprazole 40 mg tablet,delayed 40 mg PO DAILY #30 tabs 06/15/21 release cyclobenzaprine 10 mg tablet 10 mg PO TID PRN muscle spasm #10 07/30/21 tabs lidocaine 5 % topical patch 1 patch topical DAILY #15 ea 07/30/21 cephalexin 500 mg capsule 500 mg PO QID 7 days #28 caps 01/31/22 diphenhydramine HCl 25 mg capsule 50 mg PO TID PRN itching #20 caps 01/31/22 (Benadryl) prednisone 50 mg tablet 50 mg PO DAILY #7 tabs 01/31/22 Allergies Allergy/AdvReac Type Severity Reaction Status Date / Time nevirapine [From VIRAMUNE] Allergy Unknown UNKNOWN Verified 07/30/21 16:04 penicillin V Allergy Unknown itchy Verified 07/30/21 16:04 Penicillins [PENICILLINS] Allergy Unknown N/A Verified 07/30/21 16:04 sulfamethoxazole Allergy Unknown UNKNOWN, Verified 07/30/21 16:04 [From BACTRIM] upset stomach trimethoprim [From BACTRIM] Allergy Unknown UNKNOWN Verified 07/30/21 16:04 Review of Systems Review of Systems: Constitutional: No Fever, No Chills ENT/Mouth: No sore throat, No Rhinorrhea, No Swallowing Difficulty Eyes: No Eye Pain, No Swelling, No Redness Cardiovascular: No Chest Pain, No SOB Respiratory: No Cough, No Sputum Gastrointestinal: No Nausea, No Vomiting, No Diarrhea, No abdominal Pain Musculoskeletal: No joint pain, No Myalgias Skin: + Skin Lesions, + rash Neuro: No Weakness, No Numbness, No Dizziness, No Headache Psych: No Anxiety/Panic, No Depression Heme/Lymph: No Bruising, No Lymphadenopathy PMFSH Past Medical History Medical History Asthma CKD (chronic kidney disease) HIV infection Shingles Surgical History Hx of esophagogastroduodenoscopy Social History Social History Patient Tobacco Use Status: Former Tobacco user Tobacco use type: Cigarette Advance Directives: No Advance Directives Information Provided: Yes Physical Exam Vital Signs: Vital Signs: Last Vital Signs Temp 97.5 F 01/31/22 08:58 Pulse 92 01/31/22 08:58 Resp 16 01/31/22 08:58 BP 115/79 01/31/22 08:58 Pulse Ox 99 01/31/22 08:58 O2 Del Method 01/31/22 08:58 BMI result Body Mass Index 20.2 Appearance: Alert. Oriented X3. No acute distress. HEENT: Postauricularly there is erythematous skin, warm to the touch and slightly tender. Behind the left ear there is a tiny slit in the skin with foul smelling discharge. No area of fluctuance, mild induration. Tympanic membranes are normal bilaterally CVS: Normal heart rate and rhythm. Pulses normal. Respiratory: No respiratory distress. Lungs are clear throughout Skin: Skin warm and dry. Normal skin color. Normal skin turgor. Erythematous, maculopapular rash on the anterior chest, posterior neck, scattered lesions on the face Extremities: Bilateral extensor surfaces of the forearms with a erythematous, raised, vesicular type rash, small lesions also on the upper arms bilaterally. Neuro: Oriented X 3. Grossly normal, nonfocal. Course Course Course Narrative: 56-year-old female presents to the ER with a pruritic rash on her arms, chest, neck, face for the last couple of days. Is started on 1 arm and began to spread. She has been outside a lot lately but has no known contact with poison kaiden or poison oak. Her exam is consistent with dermatitis, unclear etiology. Will plan to start her on steroids and Benadryl. Behind both of her ears is mild cellulitic changes with foul-smelling discharge on the left side. No palpable abscess. Will start her on Keflex for this. She is encouraged to use warm soaks. She was encourage follow-up with her primary care doctor. At this time she is stable for discharge home. Discharge Plan Discharge Clinical Impression: Dermatitis, Cellulitis Patient Disposition: Home, Self-Care Instructions: Cellulitis (ED), Dermatitis (ED) Additional Instructions: Take the antibiotic as prescribed, complete the entire course. Take the prescribed prednisone, 1 each day for 1 week. This will help with your rash and itching. Also recommend taking Benadryl 1-2 tablets 3 times a day as needed for itching. Recommend [id number] topical Benadryl or hydrocortisone as well. This will help the itching. Follow-up with your primary care doctor. If you develop new or worsening symptoms call 911 or come back to the ER for further evaluation. Prescriptions: New cephalexin 500 mg capsule 500 mg PO QID 7 Days Qty: 28 0RF prednisone 50 mg tablet 50 mg PO DAILY Qty: 7 0RF diphenhydramine HCl [Benadryl] 25 mg capsule 50 mg PO TID PRN (Reason: itching) Qty: 20 0RF No Action pantoprazole 40 mg tablet,delayed release (DR/EC) 40 mg PO DAILY Qty: 30 2RF cyclobenzaprine 10 mg tablet 10 mg PO TID PRN (Reason: muscle spasm) Qty: 10 0RF lidocaine 5 % adhesive patch,medicated 1 patch topical DAILY Qty: 15 0RF Rx Instructions: leave on most painful area for up to 12 hrs indomethacin 50 mg capsule 50 mg PO Q8H 7 Days Qty: 21 0RF Rx Instructions: administer with food or milk prednisone 20 mg tablet 40 mg PO DAILY 5 Days Qty: 10 0RF doxycycline monohydrate 100 mg capsule 100 mg PO BID 10 Days Qty: 20 0RF cephalexin 500 mg capsule 500 mg PO Q6H 10 Days Qty: 40 0RF oxycodone 5 mg tablet 5 mg PO Q6H PRN (Reason: pain) Qty: 14 0RF hydrocortisone [Anti-Itch (HC)] 1 % cream 1 appl topical TID PRN albuterol sulfate 90 mcg/actuation HFA aerosol inhaler 2 puff inhalation Q6H PRN nystatin 100,000 unit/mL suspension 500,000 unit PO QID 10 Days Qty: 200 0RF Rx Instructions: administer 1/2 of dose in each side of the mouth
--- NOTE | 2022-01-31 09:47 | PC.NURSE ---
PATIENT EVALUATED BY [facility] IS FOR [place] [facility]. PT AGREEABLE TO PLAN. NO ACUTE DISTRESS NOTED.
== END 2022-01-31 09:49 | disposition home or self-care (01) ==
PROVIDERS: Emergency Provider Emergency Medicine; PCP Family Medicine
DX: L30.9 Dermatitis, unspecified (principal); H60.13 Cellulitis of external ear, bilateral; B20 Human immunodeficiency virus [HIV] disease
CPT/HCPCS: 99282; 99283

== ENCOUNTER 2022-06-27 11:44 | Emergency (ER) | payer MEDICAID, SELFPAY ==
--- NOTE | ~2022-06-27 | XR_ITS ---
EXAMINATION: XR CHEST CLINICAL INFORMATION: Cough and fever COMPARISON: Chest x-ray 01/17/2021 TECHNIQUE: 2 views of the chest were obtained. FINDINGS: Cardiac silhouette is normal in size. The lungs are well aerated. There is no lobar consolidation. No pleural effusion or pneumothorax. No acute osseous abnormality. XR/XR chest 2V IMPRESSION: No acute pulmonary pathology.
[2022-06-27 12:07] VITALS: BP 106/74; PULSE 84; RESP 16; TEMP 36.7; O2SAT 93; BMI 22.2
--- NOTE | 2022-06-27 12:08 | ED_ITS ---
HPI - General Adult General Chief complaint: General Medical Stated complaint: Fever/Sore throat Time Seen by Provider: 06/27/22 13:11 Source: patient Mode of arrival: ambulatory Limitations: no limitations History of Present Illness HPI narrative: 56-year-old female with history of HIV on antiretrovirals, CKD, asthma, shingles who presents to the ER for evaluation of intermittent fevers, sore throat, headaches, body aches and nausea for the last 4 days. She presents with her grandson was similar symptoms that started yesterday. She states her fevers have been as high as 100.6, they improved with Tylenol. She took some prior to coming in. She has been coughing, not bringing up any phlegm. She denies any shortness of breath or chest pain. No vomiting or abdominal pain. No urinary symptoms. MD complaint: Fever, headache, body ache Onset (ago): day(s) (4) Location: head, mouth, chest and back Radiation: non-radiation Severity: moderate Quality: aching Pain Consistency: constant Relieving factors: medication Exacerbating factors: none Associated symptoms: cough, fever/chills, headaches, malaise and weakness Treatments prior to arrival: other (Acetaminophen) Related Data Home Medications Medication Instructions Recorded Confirmed albuterol sulfate 90 mcg/actuation 2 puff inhalation Q6H PRN 11/16/20 aerosol inhaler hydrocortisone 1 % topical cream 1 appl topical TID PRN 11/16/20 (Anti-Itch (hydrocortisone)) Previous Rx's Medication Instructions Recorded nystatin 100,000 unit/mL oral 500,000 unit (5 mL) PO QID 10 days 11/16/20 suspension #200 mL cephalexin 500 mg capsule 500 mg PO Q6H 10 days #40 caps 04/15/21 doxycycline monohydrate 100 mg 100 mg PO BID 10 days #20 caps 04/15/21 capsule indomethacin 50 mg capsule 50 mg PO Q8H gout 7 days #21 caps 04/15/21 oxycodone 5 mg tablet 5 mg PO Q6H PRN pain #14 tabs 04/15/21 prednisone 20 mg tablet 40 mg PO DAILY rash 5 days #10 tabs 04/15/21 pantoprazole 40 mg tablet,delayed 40 mg PO DAILY #30 tabs 06/15/21 release cyclobenzaprine 10 mg tablet 10 mg PO TID PRN muscle spasm #10 07/30/21 tabs lidocaine 5 % topical patch 1 patch topical DAILY #15 ea 07/30/21 cephalexin 500 mg capsule 500 mg PO QID 7 days #28 caps 01/31/22 diphenhydramine HCl 25 mg capsule 50 mg PO TID PRN itching #20 caps 01/31/22 (Benadryl) prednisone 50 mg tablet 50 mg PO DAILY #7 tabs 01/31/22 benzonatate 100 mg capsule 100 mg PO TID PRN cough #30 caps 06/27/22 ondansetron 4 mg disintegrating 4 mg PO Q8H PRN nausea and 06/27/22 tablet vomiting #10 tabs Allergies Allergy/AdvReac Type Severity Reaction Status Date / Time nevirapine [From VIRAMUNE] Allergy Unknown UNKNOWN Verified 07/30/21 16:04 penicillin V Allergy Unknown itchy Verified 07/30/21 16:04 Penicillins [PENICILLINS] Allergy Unknown N/A Verified 07/30/21 16:04 sulfamethoxazole Allergy Unknown UNKNOWN, Verified 07/30/21 16:04 [From BACTRIM] upset stomach trimethoprim [From BACTRIM] Allergy Unknown UNKNOWN Verified 07/30/21 16:04 Review of Systems Review of Systems: Yes all other systems are reviewed and are negative [facility] Past Medical History Medical History Asthma CKD (chronic kidney disease) HIV infection Shingles Surgical History Hx of esophagogastroduodenoscopy Social History Social History Patient Tobacco Use Status: Former Tobacco user Tobacco use type: Cigarette Advance Directives: No Advance Directives Information Provided: No Physical Exam ED Vital Signs: Vital Signs - 24 hr 06/27/22 12:07 06/27/22 13:15 Temperature 98.0 F Pulse Rate 84 90 Respiratory Rate 16 Blood Pressure 106/74 Pulse Oximetry 93 96 Oxygen Delivery Method Room Air Room Air BMI result Body Mass Index 22.2 Appearance: Alert. Oriented X3. No acute distress. Eyes: Pupils equal, round and reactive to light. ENT: Pharynx with moist mucous membranes, mild posterior pharyngeal erythema without any tonsillar swelling or exudate. Uvula midline. Normal voice and handling secretions normally. Neck: Normal inspection. Neck supple. No lymphadenopathy CVS: Normal heart rate and rhythm. Pulses normal. Respiratory: No respiratory distress. Breath sounds normal. Abdomen: Soft and nontender. +BS x4 Skin: Skin warm and dry. Normal skin color. Normal skin turgor. No rashes. Extremities: No lower extremity edema. No calf tenderness Neuro: Oriented X 3 grossly normal, nonfocal, steady gait Course Course Course Narrative: 56 yo female with history of HIV on HAART, asthma, CKD presenting with 4-5 days of not feeling well including low grade fevers, sore throat, cough, body aches, headaches and nausea. Presenting with grandson who has similar symptoms. Tmx 100.6 at home [employer], took tylenol. VSS in triage. Viral swabs and strep test ordered. Reevaluation(s) Reevaluation #1: SpO2 96%, lungs are clear. Chest x-ray shows no pneumonia. Strep negative, viral PCR is negative. Most likely other viral syndrome. Discussed diagnosis and management with patient. Will send in a prescription for Tessalon and Zofran. Patient will follow-up with her PCP as needed. Stable for discharge home. Medical Decision Making Medical Decision Making [facility] Narrative: 56-year-old female presents to the ER for evaluation of 4 days of fever, sore throat, body aches, headaches along with nausea and generalized malaise. Nonfocal neurologically, vital signs are stable. She appears well, nontoxic. Chest x-ray bowel sounds ordered. Differential Diagnosis Differential Diagnoses: The differential diagnosis associated with the presentation includes COVID, flu, RSV, viral pneumonia, bacterial pneumonia, strep pharyngitis, less likely retropharyngeal or peritonsillar abscess, Lab Data [facility] Lab Attestation statement: I reviewed the patient's lab results. swabs negative Labs: Lab Results 06/27/22 06/27/22 Range/Units 12:22 12:22 Influenza Type A (PCR) NEGATIVE (Negative) Influenza Type B (PCR) NEGATIVE (Negative) RSV RNA Qual (PCR) NEGATIVE (Negative) SARS-CoV-2 RNA (RT-PCR) NEGATIVE (Negative) S. pyogenes GrpA KYARA Negative (Negative) Independent Interpretation I performed an independent interpretation of an: Plain X-Ray Interpretation: clear lungs, no PNA Radiology Impression Discussion of test interpretation with radiology: I have reviewed the radiologist's reading. External Record Review External record reviewed: Outpatient record, Prior outpatient labs and Prior outpatient radiology Tests considered The following testing was considered but not selected: labs considered but not required today Prescription Management I considered prescription management with: Antibiotic not required - no PNA Chronic Conditions Patient?s care impacted by: Other (HIV) Critical Care Time Critical Care Time Critical Care Time: No Discharge Plan Discharge Clinical Impression: Acute viral syndrome Patient Disposition: Home, Self-Care Instructions: Viral Syndrome (ED) Additional Instructions: Tested negative for strep throat, COVID, flu, RSV. Your chest x-ray did not show any evidence of pneumonia. Your symptoms are most likely due to another viral infection. Treatment is rest and supportive care. Make sure drinking plenty of fluids. Take [id number] cold and flu medications as needed for your symptoms. Take the prescribed medications as needed for nausea and cough. Follow-up with your doctor. If you develop new or worsening symptoms call 911 or come back to the ER for further evaluation. Prescriptions: New benzonatate 100 mg capsule 100 mg PO TID PRN (Reason: cough) Qty: 30 0RF ondansetron 4 mg tablet,disintegrating 4 mg PO Q8H PRN (Reason: nausea and vomiting) Qty: 10 0RF No Action pantoprazole 40 mg tablet,delayed release (DR/EC) 40 mg PO DAILY Qty: 30 2RF cyclobenzaprine 10 mg tablet 10 mg PO TID PRN (Reason: muscle spasm) Qty: 10 0RF lidocaine 5 % adhesive patch,medicated 1 patch topical DAILY Qty: 15 0RF Rx Instructions: leave on most painful area for up to 12 hrs cephalexin 500 mg capsule 500 mg PO QID 7 Days Qty: 28 0RF prednisone 50 mg tablet 50 mg PO DAILY Qty: 7 0RF diphenhydramine HCl [Benadryl] 25 mg capsule 50 mg PO TID PRN (Reason: itching) Qty: 20 0RF indomethacin 50 mg capsule 50 mg PO Q8H 7 Days Qty: 21 0RF Rx Instructions: administer with food or milk prednisone 20 mg tablet 40 mg PO DAILY 5 Days Qty: 10 0RF doxycycline monohydrate 100 mg capsule 100 mg PO BID 10 Days Qty: 20 0RF cephalexin 500 mg capsule 500 mg PO Q6H 10 Days Qty: 40 0RF oxycodone 5 mg tablet 5 mg PO Q6H PRN (Reason: pain) Qty: 14 0RF hydrocortisone [Anti-Itch (HC)] 1 % cream 1 appl topical TID PRN albuterol sulfate 90 mcg/actuation HFA aerosol inhaler 2 puff inhalation Q6H PRN nystatin 100,000 unit/mL suspension 500,000 unit PO QID 10 Days Qty: 200 0RF Rx Instructions: administer 1/2 of dose in each side of the mouth Referrals: Theodora Sampson MD [Primary Care Provider] - Interventions: ED Discharge Assessment Last Done: 06/27/22 13:30 Discharge Date/Time: 06/27/22 13:31
[2022-06-27 13:00] LABS: IDNOW Serial# 6674DD1D; Strep A Nucleic Acid Negative (Negative)
[2022-06-27 13:15] VITALS: PULSE 90; O2SAT 96
[2022-06-27 13:15] LABS: Influenza A PCR NEGATIVE (Negative); Influenza B PCR NEGATIVE (Negative); Resp Syncy Virus RNA Qual PCR NEGATIVE (Negative); SARS COV2 PCR INHOUSE NEGATIVE (Negative)
== END 2022-06-27 13:31 | disposition home or self-care (01) ==
PROVIDERS: Physician Assistant; Emergency Provider Emergency Medicine; PCP Family Medicine
DX: R50.9 Fever, unspecified (principal); M79.10 Myalgia, unspecified site; R05.9 Cough, unspecified; R51.9 Headache, unspecified; Z20.822 Contact with and (suspected) exposure to COVID-19; Z79.899 Other long term (current) drug therapy; Z20.828 Contact with and (suspected) exposure to other viral communicable diseases
CPT/HCPCS: 0241U; 36415; 71046; 87651; 99283

== ENCOUNTER 2022-08-30 09:11 | Emergency (ER) | payer MEDICAID, SELFPAY ==
[2022-08-30 09:19] VITALS: BP 119/61; PULSE 87; RESP 16; TEMP 36.3; O2SAT 95; BMI 22.2
--- NOTE | 2022-08-30 10:39 | ED.SKABFB ---
HPI - Skin/Abscess/Foreign Bdy General Chief complaint: Skin/Abscess/Foreign Body Stated complaint: Rash on face Time Seen by Provider: 08/30/22 09:32 Source: patient Mode of arrival: ambulatory Limitations: no limitations History of Present Illness HPI narrative: This is a 56-year-old female with a history of HIV on Biktarvy who presents to the ER with complaints of itching and painful rash to her face for 1 week. Patient denies any new products on her face. No new medications. No fevers or chills or lesions in the mouth. Patient reports she has been compliant with her home medications. She tells me her last CD4 counts were 1 year ago but she cannot recall what the results were. Related Data Home Medications Medication Instructions Recorded Confirmed albuterol sulfate 90 mcg/actuation 2 puff inhalation Q6H PRN 11/16/20 aerosol inhaler hydrocortisone 1 % topical cream 1 appl topical TID PRN 11/16/20 (Anti-Itch (hydrocortisone)) Previous Rx's Medication Instructions Recorded nystatin 100,000 unit/mL oral 500,000 unit (5 mL) PO QID 10 days 11/16/20 suspension #200 mL cephalexin 500 mg capsule 500 mg PO Q6H 10 days #40 caps 04/15/21 doxycycline monohydrate 100 mg 100 mg PO BID 10 days #20 caps 04/15/21 capsule indomethacin 50 mg capsule 50 mg PO Q8H gout 7 days #21 caps 04/15/21 oxycodone 5 mg tablet 5 mg PO Q6H PRN pain #14 tabs 04/15/21 prednisone 20 mg tablet 40 mg PO DAILY rash 5 days #10 tabs 04/15/21 pantoprazole 40 mg tablet,delayed 40 mg PO DAILY #30 tabs 06/15/21 release cyclobenzaprine 10 mg tablet 10 mg PO TID PRN muscle spasm #10 07/30/21 tabs lidocaine 5 % topical patch 1 patch topical DAILY #15 ea 07/30/21 cephalexin 500 mg capsule 500 mg PO QID 7 days #28 caps 01/31/22 diphenhydramine HCl 25 mg capsule 50 mg PO TID PRN itching #20 caps 01/31/22 (Benadryl) prednisone 50 mg tablet 50 mg PO DAILY #7 tabs 01/31/22 benzonatate 100 mg capsule 100 mg PO TID PRN cough #30 caps 06/27/22 ondansetron 4 mg disintegrating 4 mg PO Q8H PRN nausea and 06/27/22 tablet vomiting #10 tabs doxycycline monohydrate 100 mg 100 mg PO BID #14 caps 08/30/22 capsule mupirocin 2 % topical ointment 1 appl topical TID #22 grams 08/30/22 Allergies Allergy/AdvReac Type Severity Reaction Status Date / Time nevirapine [From VIRAMUNE] Allergy Unknown UNKNOWN Verified 08/30/22 09:21 penicillin V Allergy Unknown itchy Verified 08/30/22 09:21 Penicillins [PENICILLINS] Allergy Unknown N/A Verified 08/30/22 09:21 sulfamethoxazole Allergy Unknown UNKNOWN, Verified 08/30/22 09:21 [From BACTRIM] upset stomach trimethoprim [From BACTRIM] Allergy Unknown UNKNOWN Verified 08/30/22 09:21 Review of Systems Review of Systems: Yes all other systems are reviewed and are negative Constitutional: Constitutional: Reports no additional constitutional complaints, Denies body ache(s), Denies chills, Denies fever(s), Denies headache(s) and Denies weakness Eyes: Eyes: Reports no additional eye complaints and Denies change in vision ENT: Reports system reviewed and no additional complaints, except as documented, Denies dizziness, Denies headache(s), Denies nasal congestion, Denies nasal discharge and Denies neck pain Cardiovascular: Cardiovascular: Reports no additional cardiovascular complaints, Denies chest pain, Denies leg edema and Denies dyspnea Respiratory: Respiratory: Reports no additional respiratory complaints, Denies cough and Denies dyspnea Gastrointestinal: Gastrointestinal: Reports no additional gastrointestinal complaints, Denies abdominal pain, Denies diarrhea, Denies nausea and Denies vomiting Genitourinary: Genitourinary: Reports no additional female genitourinary complaints and Denies urinary incontinence Musculoskeletal: Musculoskeletal: Reports no additional musculoskeletal complaints, Denies back pain, Denies arthralgias, Denies joint swelling, Denies neck pain, Denies numbness and Denies tingling Integumentary/Breasts: Skin/Breast: Reports system reviewed and no additional complaints, except as docu and Reports rash Neurologic: Reports system reviewed and no additional complaints, except as documented, Denies Abnormal speech present, Denies dizziness, Denies headache(s), Denies numbness, Denies tingling and Denies weakness PMF Past Medical History Attestation statement: The following information was validated with the patient. Source: old records reviewed and nursing notes reviewed Medical History Asthma CKD (chronic kidney disease) HIV infection Shingles Surgical History Hx of esophagogastroduodenoscopy Social History Social History Patient Tobacco Use Status: Former Tobacco user Tobacco use type: Cigarette Smoked in Last 30 Days: Yes Use of substances other than those prescribed or required for medical reasons: No Advance Directives: No Advance Directives Information Provided: Yes Physical Exam Vital Signs: Vital Signs: Last Vital Signs Temp 97.3 F 08/30/22 09:19 Pulse 68 08/30/22 11:09 Resp 18 08/30/22 11:09 BP 106/71 08/30/22 11:09 Pulse Ox 97 08/30/22 11:09 O2 Del Method Room Air 08/30/22 11:09 BMI result Body Mass Index 22.2 Const: General: cooperative, healthy appearing, comfortable and no acute distress Orientation/consciousness: patient oriented x3 Limitations: no limitations HEENT: Other: Over the generalized phase there are some plaque-like lesions and drying of the skin notice. Over the chin there are several vesiclel like lesions with crusting and various stages of healing Head: Yes normal to inspection Ears: hearing grossly normal bilaterally General nose exam: Normal external nose present Face and sinus: Yes normal facial exam Mouth: Normal oral and palatal mucosa present Throat: Yes posterior oropharynx normal Eyes: General: appearance normal, both eyes and all related structures Pupils: Equal, round and reactive pupils present Neck: Neck: Yes normal visual inspection Chest: Chest palpation & inspection: normal inspection of the chest Resp: Effort & Inspection: normal respiratory effort Auscultation: clear to auscultation bilaterally Cardio: Rate: regular rate Rhythm: regular rhythm Peripheral pulses: Peripheral pulses 2+ throughout GI: Inspection: Yes normal to inspection Palpation (GI): Soft to palpation and nontender Auscultation: normal bowel sounds Back/Spine/Pelvis: Thoracic/Lumbar Spine: thoracic and lumbar spine normal to inspection Skin: General skin exam: no rashes or lesions noted Neuro: General: patient oriented x3, no focal motor deficits and normal sensation to monofilament Cranial nerves: Yes Equal, round and reactive pupils present Cognition (Neuro): normal cognition Speech: No Abnormal speech present Gait exam (Neuro): Normal gait present Motor exam (neuro): 5/5 motor strength present throughout Extrem: General: Yes normal to inspection Medical Decision Making Medical Decision Making MDM Narrative: 56-year-old female with a history of HIV who presents with crusting and vesicle like lesions over the chin with generalized drying skin over the face. Exam consistent with impetigo. Patient recommended to limit washing the face, using lubrication like Aquaphor and taking with mupirocin, taking antibiotics as prescribed. Patient should return for any worsening signs or symptoms. Differential Diagnosis Differential Diagnoses: The differential diagnosis associated with the presentation includes Impetigo Less likely SJS/TEN (no oral lesions) Discharge Plan Discharge Clinical Impression: Impetigo Patient Disposition: Home, Self-Care Instructions: Impetigo (DC) Additional Instructions: Limit washing the face If you touch her face please wash her hands with soap and water after Mix the mupirocin seen with something like Vaseline or Aquaphor to keep the skin moisturized You absolutely to return to the emergency room if you develop fever, worsening lesion Prescriptions: New doxycycline monohydrate 100 mg capsule 100 mg PO BID Qty: 14 0RF mupirocin 2 % ointment 1 appl topical TID Qty: 22 0RF No Action pantoprazole 40 mg tablet,delayed release (DR/EC) 40 mg PO DAILY Qty: 30 2RF cyclobenzaprine 10 mg tablet 10 mg PO TID PRN (Reason: muscle spasm) Qty: 10 0RF lidocaine 5 % adhesive patch,medicated 1 patch topical DAILY Qty: 15 0RF Rx Instructions: leave on most painful area for up to 12 hrs cephalexin 500 mg capsule 500 mg PO QID 7 Days Qty: 28 0RF prednisone 50 mg tablet 50 mg PO DAILY Qty: 7 0RF diphenhydramine HCl [Benadryl] 25 mg capsule 50 mg PO TID PRN (Reason: itching) Qty: 20 0RF benzonatate 100 mg capsule 100 mg PO TID PRN (Reason: cough) Qty: 30 0RF ondansetron 4 mg tablet,disintegrating 4 mg PO Q8H PRN (Reason: nausea and vomiting) Qty: 10 0RF indomethacin 50 mg capsule 50 mg PO Q8H 7 Days Qty: 21 0RF Rx Instructions: administer with food or milk prednisone 20 mg tablet 40 mg PO DAILY 5 Days Qty: 10 0RF doxycycline monohydrate 100 mg capsule 100 mg PO BID 10 Days Qty: 20 0RF cephalexin 500 mg capsule 500 mg PO Q6H 10 Days Qty: 40 0RF oxycodone 5 mg tablet 5 mg PO Q6H PRN (Reason: pain) Qty: 14 0RF hydrocortisone [Anti-Itch (HC)] 1 % cream 1 appl topical TID PRN albuterol sulfate 90 mcg/actuation HFA aerosol inhaler 2 puff inhalation Q6H PRN nystatin 100,000 unit/mL suspension 500,000 unit PO QID 10 Days Qty: 200 0RF Rx Instructions: administer 1/2 of dose in each side of the mouth Referrals: Theodora Sampson MD [Primary Care Provider] - 10 days Interventions: ED Discharge Assessment Last Done: 08/30/22 11:11 Discharge Date/Time: 08/30/22 11:11
[2022-08-30 11:09] VITALS: BP 106/71; PULSE 68; RESP 18; O2SAT 97
== END 2022-08-30 11:11 | disposition home or self-care (01) ==
PROVIDERS: Emergency Provider Emergency Medicine; PCP Family Medicine
DX: L01.00 Impetigo, unspecified (principal); R21 Rash and other nonspecific skin eruption; Z87.891 Personal history of nicotine dependence; Z79.899 Other long term (current) drug therapy
CPT/HCPCS: 99283; 99284

== ENCOUNTER 2022-09-13 09:03 | Emergency (ER) | payer MEDICAID, SELFPAY ==
[2022-09-13 09:17] VITALS: BP 106/68; PULSE 83; RESP 18; TEMP 36.4; O2SAT 96; BMI 22.2
[2022-09-13 09:32] VITALS: BP 94/64; PULSE 75; RESP 18; TEMP 36.4; O2SAT 98
--- NOTE | 2022-09-13 10:03 | ED_ITS ---
HPI - Skin/Abscess/Foreign Bdy General Chief complaint: Skin/Abscess/Foreign Body Stated complaint: Swollen Face No Injury Time Seen by Provider: 09/13/22 09:36 Source: patient Mode of arrival: ambulatory History of Present Illness HPI narrative: 56-year-old female with a past medical history of asthma, CKD, HIV, shingles, complaining of pruritic painful rash to face x few weeks. Patient reports she was seen and treated in our ED on 08/30 for similar symptoms prescribed p.o. antibiotic and topical cream but she was not compliant with. Denies new exposures/medications, fever/chills complaint: rash Onset (ago): week(s) Related Data Home Medications Medication Instructions Recorded Confirmed albuterol sulfate 90 mcg/actuation 2 puff inhalation Q6H PRN 11/16/20 aerosol inhaler hydrocortisone 1 % topical cream 1 appl topical TID PRN 11/16/20 (Anti-Itch (hydrocortisone)) Previous Rx's Medication Instructions Recorded nystatin 100,000 unit/mL oral 500,000 unit (5 mL) PO QID 10 days 11/16/20 suspension #200 mL cephalexin 500 mg capsule 500 mg PO Q6H 10 days #40 caps 04/15/21 doxycycline monohydrate 100 mg 100 mg PO BID 10 days #20 caps 04/15/21 capsule indomethacin 50 mg capsule 50 mg PO Q8H gout 7 days #21 caps 04/15/21 oxycodone 5 mg tablet 5 mg PO Q6H PRN pain #14 tabs 04/15/21 prednisone 20 mg tablet 40 mg PO DAILY rash 5 days #10 tabs 04/15/21 pantoprazole 40 mg tablet,delayed 40 mg PO DAILY #30 tabs 06/15/21 release cyclobenzaprine 10 mg tablet 10 mg PO TID PRN muscle spasm #10 07/30/21 tabs lidocaine 5 % topical patch 1 patch topical DAILY #15 ea 07/30/21 cephalexin 500 mg capsule 500 mg PO QID 7 days #28 caps 01/31/22 diphenhydramine HCl 25 mg capsule 50 mg PO TID PRN itching #20 caps 01/31/22 (Benadryl) prednisone 50 mg tablet 50 mg PO DAILY #7 tabs 01/31/22 benzonatate 100 mg capsule 100 mg PO TID PRN cough #30 caps 06/27/22 ondansetron 4 mg disintegrating 4 mg PO Q8H PRN nausea and 06/27/22 tablet vomiting #10 tabs doxycycline monohydrate 100 mg 100 mg PO BID #14 caps 08/30/22 capsule mupirocin 2 % topical ointment 1 appl topical TID #22 grams 08/30/22 cetirizine 10 mg capsule (Zyrtec) 10 mg PO DAILY PRN allergy 09/13/22 symptoms #14 caps diphenhydramine HCl 25 mg capsule 25 mg PO TID PRN itching #14 caps 09/13/22 (Benadryl) hydrocortisone 1 % topical cream 1 appl topical BID PRN rash #454 09/13/22 (Cortisone (hydrocortisone)) grams mupirocin 2 % topical ointment 1 appl topical BID #22 grams 09/13/22 Allergies Allergy/AdvReac Type Severity Reaction Status Date / Time nevirapine [From VIRAMUNE] Allergy Unknown UNKNOWN Verified 08/30/22 09:21 penicillin V Allergy Unknown itchy Verified 08/30/22 09:21 Penicillins [PENICILLINS] Allergy Unknown N/A Verified 08/30/22 09:21 sulfamethoxazole Allergy Unknown UNKNOWN, Verified 08/30/22 09:21 [From BACTRIM] upset stomach trimethoprim [From BACTRIM] Allergy Unknown UNKNOWN Verified 08/30/22 09:21 Review of Systems Review of Systems: Constitutional: No Fever, No Chills ENT/Mouth: No Ear Pain, No Nasal Congestion, No sore throat, No Rhinorrhea, No Swallowing Difficulty Cardiovascular: No Chest Pain, No SOB Respiratory: No Cough, No Sputum Gastrointestinal: No Nausea, No Vomiting, No Diarrhea, No Constipation, No Abdominal pain Genitourinary: No Dysuria, No Urinary Frequency, No Urgency, No Flank Pain Musculoskeletal: No joint pain, No Myalgias, No Joint Swelling Skin: No Skin Lesions, + rash Neuro: No Weakness, No Numbness, No Paresthesias Yes all other systems are reviewed and are negative Constitutional: Constitutional: Reports as per [facility] Past Medical History Attestation statement: The following information was validated with the patient. Medical History Asthma CKD (chronic kidney disease) HIV infection Shingles Surgical History Hx of esophagogastroduodenoscopy Social History Social History Patient Tobacco Use Status: Former Tobacco user Tobacco use type: Cigarette Advance Directives: No Advance Directives Information Provided: Yes Physical Exam Vital Signs: Vital Signs: Last Vital Signs Temp 97.6 F 09/13/22 09:32 Pulse 75 09/13/22 09:32 Resp 18 09/13/22 09:32 BP 94/64 09/13/22 09:32 Pulse Ox 98 09/13/22 09:32 O2 Del Method Room Air 09/13/22 09:32 BMI result Body Mass Index 22.2 Const: General: cooperative, healthy appearing and no acute distress Orientation/consciousness: patient oriented x3 Limitations: no limitations HEENT: Other: + plaque-like dry rash noted diffusely over face with small honey crusted lesions to chin. No underlying erythema, no drainage. No mucous membrane or palm/sole involvement Head: Yes normal to inspection and Yes atraumatic Ears: hearing grossly normal bilaterally General nose exam: Normal external nose present Mouth: Normal oral and palatal mucosa present Eyes: General: appearance normal, both eyes and all related structures EOM: EOMs intact bilaterally Neck: Neck: Yes normal visual inspection and Yes no meningeal signs Resp: Effort & Inspection: normal respiratory effort and no respiratory distress Cardio: Rate: regular rate : General: Yes no CVA tenderness Back/Spine/Pelvis: Back: no CVA tenderness Skin: Rashes: rashes noted Wounds: no wounds Neuro: General: patient oriented x3, tone normal and no meningeal signs Gait exam (Neuro): Normal gait present Extrem: General: Yes normal to inspection Medical Decision Making Medical Decision Making MDM Narrative: 56-year-old female with a past medical history of asthma, CKD, HIV, shingles, complaining of pruritic painful rash to face x few weeks. On exam vital signs stable, NAD, physical exam as above consistent with dermatitis vs impetigo rash vs psoriasis. No overlying cellulitis appreciated. No mucous membrane or palm/sole involvement. Unlikely TENS/SJS Plan: Topical hydrocortisone and mupirocin, recommended dermatology follow-up Please refer to course for remaining clinical decision making, interpretation of labs/imaging results, and discussions with consultants and/or family members. Differential Diagnosis Differential Diagnoses: The differential diagnosis associated with the presentation includes As above Lab Data MDM Lab Attestation statement: I reviewed the patient's lab results. External Record Review External record reviewed: Inpatient record, Office record, Outpatient record, Prior outpatient labs, Prior outpatient radiology, Primary care record and Outside ED record Discharge Plan Discharge Clinical Impression: Dermatitis, Impetigo Patient Disposition: Home, Self-Care Instructions: Impetigo (DC), Dermatitis (ED) Additional Instructions: Please makes topical mupirocin and hydrocortisone in a one-to-one ratio in apply to rash Also consider buying [id number] Euricin lotion Zyrtec and Benadryl will help with itching/allergic reaction symptoms. Benadryl will make you drowsy, take at night Please follow-up with dermatology If symptoms persist or worsen, area begins to look infected, is red, there is drainage or you fever return to the ED Prescriptions: New hydrocortisone [Cortisone (hydrocortisone)] 1 % cream 1 appl topical BID PRN (Reason: rash) Qty: 454 0RF mupirocin 2 % ointment 1 appl topical BID Qty: 22 1RF diphenhydramine HCl [Benadryl] 25 mg capsule 25 mg PO TID PRN (Reason: itching) Qty: 14 0RF Zyrtec 10 mg capsule 10 mg PO DAILY PRN (Reason: allergy symptoms) Qty: 14 0RF No Action pantoprazole 40 mg tablet,delayed release (DR/EC) 40 mg PO DAILY Qty: 30 2RF cyclobenzaprine 10 mg tablet 10 mg PO TID PRN (Reason: muscle spasm) Qty: 10 0RF lidocaine 5 % adhesive patch,medicated 1 patch topical DAILY Qty: 15 0RF Rx Instructions: leave on most painful area for up to 12 hrs cephalexin 500 mg capsule 500 mg PO QID 7 Days Qty: 28 0RF prednisone 50 mg tablet 50 mg PO DAILY Qty: 7 0RF diphenhydramine HCl [Benadryl] 25 mg capsule 50 mg PO TID PRN (Reason: itching) Qty: 20 0RF benzonatate 100 mg capsule 100 mg PO TID PRN (Reason: cough) Qty: 30 0RF ondansetron 4 mg tablet,disintegrating 4 mg PO Q8H PRN (Reason: nausea and vomiting) Qty: 10 0RF indomethacin 50 mg capsule 50 mg PO Q8H 7 Days Qty: 21 0RF Rx Instructions: administer with food or milk prednisone 20 mg tablet 40 mg PO DAILY 5 Days Qty: 10 0RF doxycycline monohydrate 100 mg capsule 100 mg PO BID 10 Days Qty: 20 0RF cephalexin 500 mg capsule 500 mg PO Q6H 10 Days Qty: 40 0RF oxycodone 5 mg tablet 5 mg PO Q6H PRN (Reason: pain) Qty: 14 0RF doxycycline monohydrate 100 mg capsule 100 mg PO BID Qty: 14 0RF mupirocin 2 % ointment 1 appl topical TID Qty: 22 0RF hydrocortisone [Anti-Itch (HC)] 1 % cream 1 appl topical TID PRN albuterol sulfate 90 mcg/actuation HFA aerosol inhaler 2 puff inhalation Q6H PRN nystatin 100,000 unit/mL suspension 500,000 unit PO QID 10 Days Qty: 200 0RF Rx Instructions: administer 1/2 of dose in each side of the mouth Referrals: Bernie Terry PA [Physician Supervisor [employer]] - Eron Metcalf MD [Physician] - Bhakti Khanna NP [Nurse Practitioner] - Karlie العلي PA-C [Physician Supervisor [employer]] - Interventions: ED Discharge Assessment Last Done: 09/13/22 10:28 Discharge Date/Time: 09/13/22 10:29
--- NOTE | 2022-09-13 10:26 | PC.NURSE ---
PT EVALUATED BY PROVIDER. PLAN IS FOR DC HOME WITH SCRIPTS SENT TO PHARMACY. PT AGREEABLE TO PLAN. NO OTHER COMPLAINTS OFFERED [employer]
== END 2022-09-13 10:29 | disposition home or self-care (01) ==
PROVIDERS: Emergency Provider Emergency Medicine; PCP Family Medicine
DX: L01.00 Impetigo, unspecified (principal); L30.8 Other specified dermatitis; N18.9 Chronic kidney disease, unspecified; J45.909 Unspecified asthma, uncomplicated; B20 Human immunodeficiency virus [HIV] disease
CPT/HCPCS: 99283; 99284

== ENCOUNTER 2023-08-31 15:54 | Emergency (ER) | payer MEDICAID, SELFPAY ==
--- NOTE | ~2023-08-31 | XR_ITS ---
EXAMINATION: XR CHEST CLINICAL INFORMATION: Shortness of breath. COMPARISON: Chest radiograph 06/27/2022. TECHNIQUE: Frontal view of the chest was obtained. FINDINGS: Normal appearance of the cardiomediastinal silhouette. Diffuse interstitial thickening that is increased compared to most recent prior, without focal consolidation, pleural effusion or pneumothorax. No acute issues findings. XR/XR chest 1V IMPRESSION: Diffuse interstitial thickening is nonspecific and could be associated with asthma, bronchitis, reactive airways disease or atypical viral infections.
[2023-08-31 16:04] VITALS: BP 90/48; BP 90/56; PULSE 110; PULSE 76; RESP 20; TEMP 36.5; O2SAT 97; O2SAT 99; BMI 17.4
[2023-08-31 16:11] VITALS: BP 90/56; PULSE 68; RESP 19; TEMP 36.5; O2SAT 95
--- NOTE | 2023-08-31 16:14 | PC.NURSE ---
Pt presented to ED via EMS from home, reports sore throat, gen malaise, fevers and weakness X1 week. Also reports cough with productive green sputum X2 weeks. EMS reports pt was hypotensive for them, they placed a line and administered approx 150 mL of NS. Pt is alert and oriented, breathing even and unlabored, skin warm and dry. Pt reports pain in throat aching and sharp, 9/10, worsens when she eats or swallows. Pt placed on bedside color television console monitor, NSR. Pt noted to be hypotensive in 90s systolic.
--- NOTE | 2023-08-31 16:21 | ECG_ITS ---
Test Reason : LOW BP Blood Pressure : / mmHG Vent. Rate : 060 BPM Atrial Rate : 060 BPM P-R Int : 142 ms QRS Dur : 076 ms QT Int : 410 ms P-R-T Axes : 079 073 077 degrees QTc Int : 410 ms Normal sinus rhythm Normal ECG When compared with ECG of 01-MAR-2018 17:52, Questionable change in QRS axis T wave amplitude has increased in Inferior leads Referred By: Alex Rousseau Electronically Signed By:Zev Garnett
--- NOTE | 2023-08-31 16:39 | ED.GENADULT ---
HPI - General Adult General Chief complaint: General Medical Stated complaint: sore throat, flu like symptoms Time Seen by Provider: 08/31/23 16:12 Source: patient and RN notes reviewed Mode of arrival: EMS Limitations: no limitations History of Present Illness HPI narrative: 57-year-old female with past medical history significant for HIV not on HAART therapy, chronic kidney disease, asthma, tobacco dependence presents for evaluation of sore throat Patient reports her symptoms started to get worse about 1 week ago. She endorses a cough that is nonproductive in the same time frame She denies any fevers, chills. She endorses weight loss because ?I can not swallow.? Patient reports that she has not antiviral treatment for HIV for last 2 years. On our records she was seen here in November of 2020 and it was documented at that time the patient was not on anti-retroviral therapy. On arrival to the ED, the patient is afebrile, her blood pressure is 90/56. Pulse of 68. Respiratory rate of 19 with a pulse ox of 95 on room air. Related Data Home Medications Medication Instructions Recorded Confirmed albuterol sulfate 90 mcg/actuation 2 puff inhalation Q6H PRN 11/16/20 aerosol inhaler hydrocortisone 1 % topical cream 1 appl topical TID PRN 11/16/20 (Anti-Itch (hydrocortisone)) Previous Rx's Medication Instructions Recorded nystatin 100,000 unit/mL oral 500,000 unit (5 mL) PO QID 10 days 11/16/20 suspension #200 mL cephalexin 500 mg capsule 500 mg PO Q6H 10 days #40 caps 04/15/21 doxycycline monohydrate 100 mg 100 mg PO BID 10 days #20 caps 04/15/21 capsule indomethacin 50 mg capsule 50 mg PO Q8H gout 7 days #21 caps 04/15/21 oxycodone 5 mg tablet 5 mg PO Q6H PRN pain #14 tabs 04/15/21 prednisone 20 mg tablet 40 mg (2 x 20 mg) PO DAILY rash 5 04/15/21 days #10 tabs pantoprazole 40 mg tablet,delayed 40 mg PO DAILY #30 tabs 06/15/21 release cyclobenzaprine 10 mg tablet 10 mg PO TID PRN muscle spasm #10 07/30/21 tabs lidocaine 5 % topical patch 1 patch topical DAILY #15 ea 07/30/21 cephalexin 500 mg capsule 500 mg PO QID 7 days #28 caps 01/31/22 diphenhydramine HCl 25 mg capsule 50 mg (2 x 25 mg) PO TID PRN 01/31/22 (Benadryl) itching #20 caps prednisone 50 mg tablet 50 mg PO DAILY #7 tabs 01/31/22 benzonatate 100 mg capsule 100 mg PO TID PRN cough #30 caps 06/27/22 ondansetron 4 mg disintegrating 4 mg PO Q8H PRN nausea and 06/27/22 tablet vomiting #10 tabs doxycycline monohydrate 100 mg 100 mg PO BID #14 caps 08/30/22 capsule mupirocin 2 % topical ointment 1 appl topical TID #22 grams 08/30/22 cetirizine 10 mg capsule (Zyrtec) 10 mg PO DAILY PRN allergy 09/13/22 symptoms #14 caps diphenhydramine HCl 25 mg capsule 25 mg PO TID PRN itching #14 caps 09/13/22 (Benadryl) hydrocortisone 1 % topical cream 1 appl topical BID PRN rash #454 09/13/22 (Cortisone (hydrocortisone)) grams mupirocin 2 % topical ointment 1 appl topical BID #22 grams 09/13/22 nystatin 100,000 unit/mL oral 500,000 unit (5 mL) buccal DAILY 2 08/31/23 suspension weeks #70 mL ondansetron 4 mg disintegrating 4 mg PO Q8H PRN nausea and 08/31/23 tablet vomiting #20 tabs sulfamethoxazole 800 1 tab PO Q12H #9 tabs 08/31/23 mg-trimethoprim 160 mg tablet (Bactrim DS) Allergies Allergy/AdvReac Type Severity Reaction Status Date / Time nevirapine [From VIRAMUNE] Allergy Unknown UNKNOWN Verified 08/30/22 09:21 penicillin V Allergy Unknown itchy Verified 08/30/22 09:21 Penicillins [PENICILLINS] Allergy Unknown N/A Verified 08/30/22 09:21 sulfamethoxazole Allergy Unknown UNKNOWN, Verified 08/30/22 09:21 [From BACTRIM] upset stomach trimethoprim [From BACTRIM] Allergy Unknown UNKNOWN Verified 08/30/22 09:21 Review of Systems Constitutional: Constitutional: Reports anorexia, Denies body ache(s), Denies chills, Denies fever(s), Reports weakness and Reports weight loss Eyes: Eyes: Denies blurry vision ENT: Reports mouth pain, Reports sore throat and Reports throat swelling Cardiovascular: Cardiovascular: Denies chest pain and Denies dyspnea Respiratory: Respiratory: Reports change in phlegm color, Reports cough, Denies pain with cough and Denies dyspnea Gastrointestinal: Gastrointestinal: Denies abdominal pain, Denies loose stools and Denies vomiting Musculoskeletal: Musculoskeletal: Denies back pain Integumentary/Breasts: Skin/Breast: Denies rash Neurologic: Reports weakness Allergic/Immunologic: Allergic/Immunologic: Reports throat swelling PMFSH Past Medical History Medical History Asthma CKD (chronic kidney disease) HIV infection Shingles Surgical History Hx of esophagogastroduodenoscopy Social History Social History Patient Tobacco Use Status: Former Tobacco user Tobacco use type: Cigarette Smoked in Last 30 Days: Yes Use of substances other than those prescribed or required for medical reasons: No Advance Directives: No Advance Directives Information Provided: Yes Physical Exam ED Vital Signs: Vital Signs - 24 hr 08/31/23 16:04 08/31/23 16:11 08/31/23 18:35 Temperature 97.7 F 97.7 F 97.9 F Pulse Rate 76 68 60 Respiratory Rate 20 19 18 Blood Pressure 90/56 L 90/56 L 93/56 L Pulse Oximetry 97 95 98 Oxygen Delivery Method Room Air Room Air Room Air BMI result Body Mass Index 17.4 Const General: cooperative, comfortable, no acute distress, alert and awake; No healthy appearing Nutritional Appearance: cachectic, malnourished, thin and underweight Orientation/consciousness: patient oriented x3 HENMT Other: Patient has thick white discharge covering the oropharynx and retropharynx as well as the posterior tongue. It is on an erythematous base Head: Yes normocephalic and Yes atraumatic Eyes Eyelids: Yes eyelids normal Conjunctivae: conjunctivae normal Sclerae: sclerae normal Corneas: corneas normal Pupils: Equal, round and reactive pupils present EOM: EOMs intact bilaterally Neck Neck: Yes full ROM Resp Other: Mild bibasilar rhonchi Effort & Inspection: normal respiratory effort, able to speak in complete sentences and not labored Auscultation: not clear to auscultation bilaterally Cardio Rate: regular rate Rhythm: regular rhythm GI Inspection: No distended Palpation (GI): Soft to palpation, not firm, nontender, no guarding and not rigid Skin General skin exam: elasticity normal Neuro General: patient oriented x3 Cranial nerves: Yes Equal, round and reactive pupils present and Yes Bilaterally intact EOM present Cognition (Neuro): normal cognition Extrem Other: Moving all extremities well without any obvious deformities Course Reevaluation(s) Reevaluation #1: Discussed with infectious Disease, Dr. Cline who agrees with nystatin treatment, Bactrim for both UTI treatment as well as PCP prophylaxis. The patient has an adverse reaction to Bactrim listed as upset stomach. I confirmed with the patient that it is truly just an upset stomach, she never had any signs of anaphylaxis. The patient agrees to take the medication until Sunday. The patient will follow-up with Infectious Disease on Sunday at 1:00 p.m. on the 4th floor Time: 19:28 Medications Administered Discontinued Medications Generic Name Dose Route Start Last Admin Trade Name Freq PRN Reason Stop Dose Admin Sodium Chloride 1,000 mls @ 999 mls/hr 08/31/23 16:30 08/31/23 18:25 Ns IV 08/31/23 17:30 Infused .Q1H1M LEANNA Infusion Nystatin 500,000 unit 08/31/23 16:25 08/31/23 16:55 Nystatin Oral Susp 500,000 Unit/5 Ml Oral.Susp PO 08/31/23 16:26 500,000 unit ONCE ONE Administration Protocol Medical Decision Making Medical Decision Making [facility] Narrative: 57-year-old female presents for evaluation of a sore throat. On exam she has a significant candidiasis that I suspect extends down into the esophagus as she has a history of this documented on CT scan. The patient is hypotensive, cachectic. Plan for workup including labs, chest x-ray to evaluate for opportunistic infection. Her oxygen saturation is stable on room air. Differential Diagnosis Differential Diagnoses: The differential diagnosis associated with the presentation includes Candidiasis Opportunistic infection HIV Aids Hairy leukoplakia Strep pharyngitis Admission/Observation Consideration of admission/observation: Escalation of care including admission/observation considered Consider admission for moderate to severe thrush, UTI in the setting of HIV Consult Healthcare Provider Management of the patient was discussed with: [facility] (infectious disease, Dr Cline) Lab Data MDM Lab Attestation statement: I reviewed the patient's lab results. No leukocytosis. The patient does have a mild macrocytic anemia. Normal platelet count. Patient's chloride is elevated to 113 patient has a BUN of 19 with a normal creatinine of 1.33. She does have a history of mild chronic kidney disease 08/31/23 16:53 08/31/23 16:54 Labs: Lab Results 08/31/23 08/31/23 08/31/23 Range/Units 16:46 16:47 16:53 WBC 4.9 (4.8-10.8) X10*3/uL RBC 2.60 L (4.20-5.50) X10*6/uL Hgb 9.0 L (12.0-16.0) g/dl Hct 26.1 L (37.0-47.0) % MCV 100.4 H (80.0-98.0) fL MCH 34.6 H (27.0-33.0) pg MCHC 34.5 (31.0-35.0) g/dl RDW 13.4 (11.0-16.0) % Plt Count 174 (160-400) X10*3/uL MPV 10.6 (9.4-12.3) fL Immature Gran % (Auto) 0.6 H (0.0-0.4) % Neut % (Auto) 66.0 (45-73) % Lymph % (Auto) 15.8 L (20-40) % [place] % (Auto) 12.5 H (2-11) % Eos % (Auto) 4.9 H (0-4) % Baso % (Auto) 0.2 (0-2) % Lymph # (Auto) 0.8 L (1.2-4.9) X10*3/uL [place] # (Auto) 0.6 (0.1-1.2) X10*3/uL Eos # (Auto) 0.2 (0.0-0.4) X10*3/uL Baso # (Auto) 0.0 (0.0-0.2) X10*3/uL Abs Immat Gran (auto) 0.03 (0.00-0.03) X10*3/uL Absolute Neuts (auto) 3.2 (2.0-8.3) x10*3/uL Absolute Nucleated RBC 0.000 (0.0-0.012) X10*3/uL Nucleated RBC % (auto) 0.0 (0.0-0.2) /100WBC Hold Blue Top Sodium (135-145) mmol/L Potassium (3.3-5.1) mmol/L Chloride (96-108) mmol/L Carbon Dioxide (22-29) mmol/L Anion Gap (12-20) BUN (9-16) mg/dL Creatinine (0.5-1.4) mg/dL Estim Creat Clear Calc Estimated GFR Random Glucose (60-115) mg/dL Lactic Acid 0.7 (0.5-2.0) mmol/L Calcium (8.4-10.2) mg/dL Total Bilirubin (0.0-1.0) mg/dL AST (5-31) U/L ALT (0-31) U/L Alkaline Phosphatase (39-117) U/L Total Protein (6.5-8.0) g/dL Albumin (3.5-5.0) g/dL Lipase (8-78) U/L Urine Color Urine Appearance Urine pH (5.0-9.0) Ur Specific [place] (1.005-1.025) Urine Protein (Neg-Trace) mg/dL Urine Glucose (UA) (Negative) mg/dL Urine Ketones (Negative) mg/dL Urine Blood (Negative) Urine Nitrite (Negative) Ur Leukocyte Esterase (Negative) Urine RBC (0-2) /HPF Urine WBC (0-5) /HPF Ur Squamous Epith Cells (0-2) /HPF Urine Bacteria (None Seen) Hyaline Casts (0-2) /LPF Influenza Type A (PCR) NEGATIVE (Negative) Influenza Type B (PCR) NEGATIVE (Negative) RSV RNA Qual (PCR) NEGATIVE (Negative) SARS-CoV-2 RNA (RT-PCR) NEGATIVE (Negative) S. pyogenes GrpA KYARA Negative (Negative) 08/31/23 08/31/23 08/31/23 Range/Units 16:54 17:23 18:37 WBC (4.8-10.8) X10*3/uL RBC (4.20-5.50) X10*6/uL Hgb (12.0-16.0) g/dl Hct (37.0-47.0) % MCV (80.0-98.0) fL MCH (27.0-33.0) pg MCHC (31.0-35.0) g/dl RDW (11.0-16.0) % Plt Count (160-400) X10*3/uL MPV (9.4-12.3) fL Immature Gran % (Auto) (0.0-0.4) % Neut % (Auto) (45-73) % Lymph % (Auto) (20-40) % [place] % (Auto) (2-11) % Eos % (Auto) (0-4) % Baso % (Auto) (0-2) % Lymph # (Auto) (1.2-4.9) X10*3/uL [place] # (Auto) (0.1-1.2) X10*3/uL Eos # (Auto) (0.0-0.4) X10*3/uL Baso # (Auto) (0.0-0.2) X10*3/uL Abs Immat Gran (auto) (0.00-0.03) X10*3/uL Absolute Neuts (auto) (2.0-8.3) x10*3/uL Absolute Nucleated RBC (0.0-0.012) X10*3/uL Nucleated RBC % (auto) (0.0-0.2) /100WBC Hold Blue Top SEE NOTE Sodium 142 (135-145) mmol/L Potassium 4.2 (3.3-5.1) mmol/L Chloride 113 H (96-108) mmol/L Carbon Dioxide 23 (22-29) mmol/L Anion Gap 10 L (12-20) BUN 19 H (9-16) mg/dL Creatinine 1.33 (0.5-1.4) mg/dL Estim Creat Clear Calc 28.4 Estimated GFR 41 Random Glucose 90 (60-115) mg/dL Lactic Acid (0.5-2.0) mmol/L Calcium 8.2 L (8.4-10.2) mg/dL Total Bilirubin 0.4 (0.0-1.0) mg/dL AST 16 (5-31) U/L ALT 7 (0-31) U/L Alkaline Phosphatase 61 (39-117) U/L Total Protein 6.7 (6.5-8.0) g/dL Albumin 3.4 L (3.5-5.0) g/dL Lipase 22 (8-78) U/L Urine Color Yellow Urine Appearance Cloudy Urine pH 6.0 (5.0-9.0) Ur Specific [place] 1.010 (1.005-1.025) Urine Protein 30 (1+) H (Neg-Trace) mg/dL Urine Glucose (UA) Negative (Negative) mg/dL Urine Ketones Negative (Negative) mg/dL Urine Blood Trace H (Negative) Urine Nitrite Negative (Negative) Ur Leukocyte Esterase Moderate (2+) H (Negative) Urine RBC 0-2 (0-2) /HPF Urine WBC >50 H (0-5) /HPF Ur Squamous Epith Cells 6-10 (0-2) /HPF Urine Bacteria 4+ (None Seen) Hyaline Casts 3-5 (0-2) /LPF Influenza Type A (PCR) (Negative) Influenza Type B (PCR) (Negative) RSV RNA Qual (PCR) (Negative) SARS-CoV-2 RNA (RT-PCR) (Negative) S. pyogenes GrpA KYARA (Negative) Independent Interpretation I performed an independent interpretation of an: Plain X-Ray (No focal infiltrates) Radiology Impression Discussion of test interpretation with radiology: I have reviewed the radiologist's reading. Radiologist Impression: Diffuse interstitial thickening which is nonspecific. Discharge Plan Discharge Clinical Impression: Candidiasis of esophagus with HIV infection, UTI (urinary tract infection), HIV (human immunodeficiency virus) infection Patient Disposition: Home, Self-Care Instructions: Urinary Tract Infection in Women (ED), Urinary Tract Infection in Women (DC), Oral Candidiasis (ED) Additional Instructions: Your sore throat is likely related to a fungal infection called thrush or candidiasis. Use nystatin swish and swallow 4 times a day for at least 1 week You also have a urinary tract infection Take Bactrim twice daily for the next 5 days If this causes upset stomach, you may use Zofran to help treat nausea Stop taking if you have any swelling, specifically facial swelling and return to the ER You have an appointment with infectious disease, Dr Marlyn Lyonday at 1:00 p.m. The address and phone number are in your discharge papers Prescriptions: New nystatin 100,000 unit/mL suspension 500,000 unit buccal DAILY 14 Days Qty: 70 0RF Rx Instructions: administer 1/2 of dose in each side of the mouth. Swish and swallow sulfamethoxazole-trimethoprim [Bactrim DS] 800-160 mg tablet 1 tab PO Q12H Qty: 9 0RF ondansetron 4 mg tablet,disintegrating 4 mg PO Q8H PRN (Reason: nausea and vomiting) Qty: 20 0RF No Action pantoprazole 40 mg tablet,delayed release (DR/EC) 40 mg PO DAILY Qty: 30 2RF cyclobenzaprine 10 mg tablet 10 mg PO TID PRN (Reason: muscle spasm) Qty: 10 0RF lidocaine 5 % adhesive patch,medicated 1 patch topical DAILY Qty: 15 0RF Rx Instructions: leave on most painful area for up to 12 hrs cephalexin 500 mg capsule 500 mg PO QID 7 Days Qty: 28 0RF prednisone 50 mg tablet 50 mg PO DAILY Qty: 7 0RF diphenhydramine HCl [Benadryl] 25 mg capsule 50 mg PO TID PRN (Reason: itching) Qty: 20 0RF benzonatate 100 mg capsule 100 mg PO TID PRN (Reason: cough) Qty: 30 0RF ondansetron 4 mg tablet,disintegrating 4 mg PO Q8H PRN (Reason: nausea and vomiting) Qty: 10 0RF indomethacin 50 mg capsule 50 mg PO Q8H 7 Days Qty: 21 0RF Rx Instructions: administer with food or milk prednisone 20 mg tablet 40 mg PO DAILY 5 Days Qty: 10 0RF doxycycline monohydrate 100 mg capsule 100 mg PO BID 10 Days Qty: 20 0RF cephalexin 500 mg capsule 500 mg PO Q6H 10 Days Qty: 40 0RF oxycodone 5 mg tablet 5 mg PO Q6H PRN (Reason: pain) Qty: 14 0RF doxycycline monohydrate 100 mg capsule 100 mg PO BID Qty: 14 0RF mupirocin 2 % ointment 1 appl topical TID Qty: 22 0RF hydrocortisone [Cortisone (hydrocortisone)] 1 % cream 1 appl topical BID PRN (Reason: rash) Qty: 454 0RF mupirocin 2 % ointment 1 appl topical BID Qty: 22 1RF diphenhydramine HCl [Benadryl] 25 mg capsule 25 mg PO TID PRN (Reason: itching) Qty: 14 0RF Zyrtec 10 mg capsule 10 mg PO DAILY PRN (Reason: allergy symptoms) Qty: 14 0RF hydrocortisone [Anti-Itch (HC)] 1 % cream 1 appl topical TID PRN albuterol sulfate 90 mcg/actuation HFA aerosol inhaler 2 puff inhalation Q6H PRN nystatin 100,000 unit/mL suspension 500,000 unit PO QID 10 Days Qty: 200 0RF Rx Instructions: administer 1/2 of dose in each side of the mouth Referrals: Tiffany Cline MD [Physician] - (Untreated HIV)
[2023-08-31] MEDS: 0.9 % Sodium Chloride 1,000 ML 999 ML IV (16:55)
[2023-08-31] MEDS: Nystatin Oral Susp 500,000 UNIT/5 ML ORAL.SUSP 500000 UNIT PO (16:55)
[2023-08-31 16:59] LABS: MANUAL DIFF FLAG NO
[2023-08-31 17:10] LABS: Lactic Acid 0.7 mmol/L (0.5-2.0)
[2023-08-31 17:15] LABS: IDNOW Serial# 08D9AD1C; Strep A Nucleic Acid Negative (Negative)
[2023-08-31 17:15] LABS: Alanine Aminotransferase 7 U/L (0-31); Albumin Level 3.4 g/dL (3.5-5.0); Alkaline Phosphatase 61 U/L (39-117); Anion Gap 10 (12-20); Aspartate Amino Transferase 16 U/L (5-31); Bilirubin Total 0.4 mg/dL (0.0-1.0); Blood Urea Nitrogen 19 mg/dL (9-16); Calcium 8.2 mg/dL (8.4-10.2); Carbon Dioxide 23 mmol/L (22-29); Chloride 113 mmol/L (96-108); Creatinine Clr Calc Pharmacy 28.4; Estimated Glomerular Filt Rate 41; Glucose Random 90 mg/dL (60-115); Lipase 22 U/L (8-78); Potassium 4.2 mmol/L (3.3-5.1); Sodium 142 mmol/L (135-145); Total Protein 6.7 g/dL (6.5-8.0)
[2023-08-31 17:26] LABS: Basophils Percent Auto 0.2 % (0-2); Eosinophils Absolute Auto 0.2 X10*3/uL (0.0-0.4); Eosinophils Percent Auto 4.9 % (0-4); Hematocrit 26.1 % (37.0-47.0); Imm Gran Abs Auto 0.03 X10*3/uL (0.00-0.03); Imm Gran Pct Auto 0.6 % (0.0-0.4); Lymphocytes Absolute Auto 0.8 X10*3/uL (1.2-4.9); Lymphocytes Percent Auto 15.8 % (20-40); Mean Corpuscular HGB Conc 34.5 g/dl (31.0-35.0); Mean Corpuscular Hemoglobin 34.6 pg (27.0-33.0); Mean Corpuscular Volume 100.4 fL (80.0-98.0); Mean Platelet Volume 10.6 fL (9.4-12.3); Monocytes Absolute Auto 0.6 X10*3/uL (0.1-1.2); Monocytes Percent Auto 12.5 % (2-11); Neutrophils Absolute Auto 3.2 x10*3/uL (2.0-8.3); Platelet Count 174 X10*3/uL (160-400); Red Cell Distribution Width 13.4 % (11.0-16.0); White Blood Count 4.9 X10*3/uL (4.8-10.8)
[2023-08-31 17:48] LABS: Influenza A PCR NEGATIVE (Negative); Influenza B PCR NEGATIVE (Negative); Resp Syncy Virus RNA Qual PCR NEGATIVE (Negative); SARS COV2 PCR INHOUSE NEGATIVE (Negative)
[2023-08-31 18:35] VITALS: BP 93/56; PULSE 60; RESP 18; TEMP 36.6; O2SAT 98
[2023-08-31 18:42] LABS: Appearance Urine Cloudy; Color Urine Yellow; Glucose Urine UA Negative (Negative); Leukocyte Esterase Urine Moderate (2+) (Negative); Nitrite Urine Negative (Negative); UMIC TRIGGER UACC YES; Urine Blood Trace (Negative); Urine Ketones Negative (Negative); Urine Protein 30 (1+) mg/dL (Neg-Trace)
[2023-08-31 18:48] LABS: Bacteria Urine 4+ (None Seen); RBC Urine 0-2 /HPF (0-2); UACC Culture Trigger YES; WBC Urine >50 /HPF (0-5)
[2023-08-31] MEDS: Ondansetron ODT 4 MG TAB.RAPDIS TRANSLINGU (19:47)
[2023-08-31] MEDS: Sulfamethox/Trimeth 800/160 TABLET 1 TAB PO (19:47)
[2023-08-31 19:56] VITALS: BP 93/52; PULSE 71; RESP 12; TEMP 36.7; O2SAT 98
[2023-09-03 09:13] LABS: Absolute CD3 Count 582 cells/uL (840-3060); Absolute CD4 Count <20 cells/uL (490-1740); Absolute CD8 Count 559 cells/uL (180-1170); Absolute Lymphocytes 780 cells/uL (850-3900); CD4 CD8 Ratio 0.03 (0.86-5.00); Percent CD3 Cells 75 % (57-85); Percent CD4 Cells 2 % (30-61); Percent CD8 Cells 72 % (12-42)
[2023-09-05 04:24] LABS: HIV RNA PCR Qn Copies 239000 copies/mL (NOT DETECTED); HIV RNA PCR Qn Log Copies 5.38 (NOT DETECTED)
== END 2023-08-31 19:58 | disposition home or self-care (01) ==
PROVIDERS: Physician Assistant; Emergency Provider Internal Medicine
DX: B37.81 Candidal esophagitis (principal); J02.9 Acute pharyngitis, unspecified; N39.0 Urinary tract infection, site not specified; I95.9 Hypotension, unspecified; R05.9 Cough, unspecified; R13.10 Dysphagia, unspecified; R11.2 Nausea with vomiting, unspecified; Z21 Asymptomatic human immunodeficiency virus [HIV] infection status; Z11.52 Encounter for screening for COVID-19; Z20.822 Contact with and (suspected) exposure to COVID-19; Z79.899 Other long term (current) drug therapy
CPT/HCPCS: 0241U; 71045; 80053; 81001; 83605; 83690; 85025; 86359; 86360; 87040; 87086; 87536; 87651; 93005; 96360; 99284; 99285

== ENCOUNTER → 2023-08-31 16:21 | Outpatient (BNV) | payer MEDICAID, SELFPAY | PROVIDERS: Emergency Provider Internal Medicine; Visit Provider Internal Medicine Cardiovascular Disease | DX: R03.1 Nonspecific low blood-pressure reading (principal) | CPT/HCPCS: 93010 ==

== ENCOUNTER 2023-09-05 13:27 | Outpatient (AMB) | payer MEDICAID, SELFPAY ==
[2023-09-05 13:34] VITALS: PULSE 97; O2SAT 98; BMI 14.9
--- NOTE | 2023-09-05 13:34 | A.OFFVIS_ITS ---
Intake Vital Signs 09/05/23 13:34 Height 4 ft 11 in Weight 74 lb BMI 14.9 Pulse 97 Pulse Oximetry (%) 98 Intake Visit Reasons: ER follow up/antibiotic Allergies nevirapine [From VIRAMUNE] Allergy (Unknown, Verified 09/15/23 10:42) UNKNOWN penicillin V Allergy (Unknown, Verified 09/15/23 10:42) itchy Penicillins [PENICILLINS] Allergy (Unknown, Verified 09/15/23 10:42) N/A sulfamethoxazole [From BACTRIM] Allergy (Unknown, Verified 09/15/23 10:42) UNKNOWN, upset stomach trimethoprim [From BACTRIM] Allergy (Unknown, Verified 09/15/23 10:42) UNKNOWN HPI ER follow up/antibiotic HPI Details She presents with weakness and fatigue. She has HIV with CD4 count of 1067 and viral load undetectable on 08/27. She has not taken HAART medication for a year or more. She has custody of 11 year old and 18 month old grandchildren. [facility] Medical History Shingles Asthma CKD (chronic kidney disease) HIV infection Surgical History Hx of esophagogastroduodenoscopy Social History Household Members: Family Housing: Apartment Do you presently have visiting nurse or other home services: No Patient Tobacco Use Status: Former Tobacco user Tobacco use type: Cigarette service: No Review of Systems Const All systems reviewed & are unremarkable except as noted in HPI and below Physical Exam Vital Signs: Last Vital Signs Pulse 97 09/05/23 13:34 Pulse Ox 98 09/05/23 13:34 BMI result Body Mass Index 14.9 Const Other: thin General: cooperative Orientation/consciousness: patient oriented x3 HEENT Other: thrush Mouth: Normal oral and palatal mucosa present Eyes General: appearance normal, both eyes and all related structures Pupils: Equal, round and reactive pupils present Resp Effort & Inspection: normal respiratory effort Cardio Rate: regular rate Rhythm: regular rhythm GI Palpation (GI): Soft to palpation and nontender General: Yes no CVA tenderness Back/Spine/Pelvis Back: no CVA tenderness Skin General skin exam: no rashes or lesions noted Neuro General: patient oriented x3 Cranial nerves: Yes CN's II-XII intact bilaterally and Yes Equal, round and reactive pupils present Extrem General: Yes normal to inspection Psych Appearance: grossly normal Assessment & Plan Assessment & Plan (1) HIV infection: Comment: Not on antivirals Code(s): B20 - Human immunodeficiency virus [HIV] disease Plan Start HAART Biktarvy Continue Diflucan for thrush started by ER and also continue atovaquone 1500 mg daily PJP prevention. See after month or so,adherence stressed. Medications: New [id number]-miyfhjuz-mzrhlhr ala 50-200-25 mg (Biktarvy) 1 tab PO DAILY 30 tabs 5RF 30 days Coding Level of Care Code New Pt Level 4 (65151) Diagnoses HIV infection B20
== END 2023-09-05 13:51 | disposition home or self-care (01) ==
LOC: HO.HID 13:27
PROVIDERS: Referring Provider Family Medicine; Visit Provider Internal Medicine
DX: B20 Human immunodeficiency virus [HIV] disease (principal)
CPT/HCPCS: 99204

== ENCOUNTER → 2023-09-05 13:27 | Outpatient (BNVA) | payer MEDICAID, SELFPAY | PROVIDERS: Visit Provider Internal Medicine | DX: B20 Human immunodeficiency virus [HIV] disease (principal); N18.4 Chronic kidney disease, stage 4 (severe) | CPT/HCPCS: 99202 ==

== ENCOUNTER 2023-09-15 10:23 | Inpatient (IN) | payer MEDICAID, SELFPAY ==
[2023-09-15] VITALS (7 sets, daily range): BP systolic 88–118; BP diastolic 33–71; PULSE 54–94; RESP 16–18; TEMP 36.2–37; O2SAT 97–100; BMI 14.6; BMI 14.9
--- NOTE | ~2023-09-15 | CT_ITS ---
EXAMINATION: CT ABDOMEN AND PELVIS WITHOUT CONTRAST CLINICAL INFORMATION: Right flank pain COMPARISON: CT from 2010 and renal ultrasound September 2021 TECHNIQUE: Multidetector volumetric imaging was performed from the superior aspect of the liver through the pubic symphysis. Sagittal and coronal reformatted images were obtained on the technologist's workstation. This CT examination was performed using dose optimization techniques as appropriate, variously including the following: *Automated exposure control *Adjustment of mA and/or kV according to patient size (this includes techniques or standardized protocols for targeted exams where dose is matched to indication/reason for exam; i.e. extremities or head) *Use of iterative reconstruction technique DLP: 191 mGy-cm FINDINGS: LUNG BASES: The visualized lung bases are unremarkable. LIVER, GALLBLADDER, AND BILIARY TREE: The liver is normal in size, shape, and attenuation. No focal hepatic lesion or biliary ductal dilatation is present. Small gallstone. The gallbladder is otherwise unremarkable. PANCREAS: Unremarkable. SPLEEN: Unremarkable. ADRENAL GLANDS: Unremarkable. KIDNEYS AND URETERS: Small nonobstructing stone in the lower pole of the left kidney. Bilateral renal cysts. Subcentimeter high attenuation lesion in the peripheral lower pole of the right kidney probably representing a hyperdense cyst. No imaging follow-up of renal cysts recommended. BLADDER: Unremarkable. GASTROINTESTINAL TRACT: There is question of mild wall thickening of the cecum. The small and large bowel are otherwise unremarkable. The appendix is unremarkable. ABDOMINAL WALL: No significant hernia is appreciated. LYMPH NODES: Normal. VASCULAR: Unremarkable. PELVIC VISCERA: Small amount of fluid in the pelvis. Uterus and adnexa appear unremarkable. OSSEOUS STRUCTURES: Unremarkable. CT/CT abdomen pelvis wo IV con IMPRESSION: Small nonobstructing left renal stone. No right renal stone or hydronephrosis. Normal appendix. Question mild wall thickening of the cecum. Small amount of fluid in the pelvis. Gallstone. Fleischner guidelines were followed.
--- NOTE | 2023-09-15 10:44 | ED.GENADULT ---
HPI - General Adult General Chief complaint: General Medical Stated complaint: FLANK PAIN Time Seen by Provider: 09/15/23 10:36 Source: patient and EMS Mode of arrival: EMS Limitations: no limitations History of Present Illness HPI narrative: 57-year-old female history of untreated HIV, CKD, asthma presenting with right-sided flank pain that started yesterday, patient reports that the pain radiates into her right groin region, she has a history of kidney stones 2 years ago, since then has not had a stone however. Patient reports subjective fevers and chills. Recent UTI 2 weeks ago reports she finished her antibiotics. Patient denies chest pain, shortness of breath, nausea, vomiting, abdominal pain, diarrhea, headache, vision changes, dizziness and weakness Related Data Home Medications ?Medication ?Instructions ?Recorded ?Confirmed albuterol sulfate 90 mcg/actuation 2 puff inhalation Q6H PRN 11/16/20 aerosol inhaler Previous Rx's ?Medication ?Instructions ?Recorded nystatin 100,000 unit/mL oral 500,000 unit (5 mL) PO QID 10 days 11/16/20 suspension #200 mL ondansetron 4 mg disintegrating 4 mg PO Q8H PRN nausea and 06/27/22 tablet vomiting #10 tabs cetirizine 10 mg capsule (Zyrtec) 10 mg PO DAILY PRN allergy 09/13/22 symptoms #14 caps nystatin 100,000 unit/mL oral 500,000 unit (5 mL) buccal DAILY 2 08/31/23 suspension weeks #70 mL ondansetron 4 mg disintegrating 4 mg PO Q8H PRN nausea and 08/31/23 tablet vomiting #20 tabs sulfamethoxazole 800 1 tab PO Q12H #9 tabs 08/31/23 mg-trimethoprim 160 mg tablet (Bactrim DS) bictegravir 50 mg-emtricitabine 1 tab PO DAILY 30 days #30 tabs 09/05/23 200 mg-tenofovir alafenam 25 mg tablet (Biktarvy) Allergies Allergy/AdvReac Type Severity Reaction Status Date / Time nevirapine [From VIRAMUNE] Allergy Unknown UNKNOWN Verified 09/15/23 10:42 penicillin V Allergy Unknown itchy Verified 09/15/23 10:42 Penicillins [PENICILLINS] Allergy Unknown N/A Verified 09/15/23 10:42 sulfamethoxazole Allergy Unknown UNKNOWN, Verified 09/15/23 10:42 [From BACTRIM] upset stomach trimethoprim [From BACTRIM] Allergy Unknown UNKNOWN Verified 09/15/23 10:42 Review of Systems Review of Systems: Yes all other systems are reviewed and are negative [facility] Past Medical History Attestation statement: The following information was validated with the patient. Source: old records reviewed and nursing notes reviewed Medical History Shingles Asthma CKD (chronic kidney disease) HIV infection Surgical History Hx of esophagogastroduodenoscopy Social History Social History Patient Tobacco Use Status: Former Tobacco user Tobacco use type: Cigarette Smoked in Last 30 Days: No Use of substances other than those prescribed or required for medical reasons: No Advance Directives: No Advance Directives Information Provided: No Patient : No Physical Exam ED Vital Signs: Vital Signs - 24 hr 09/15/23 10:37 09/15/23 13:10 Temperature 98.1 F Pulse Rate 64 54 Respiratory Rate 16 16 Blood Pressure 91/58 L 92/33 L Pulse Oximetry 100 97 Oxygen Delivery Method Room Air Room Air BMI result Body Mass Index 14.6 hypotension Appearance: Alert.? Oriented X3.? Cachectic Head: Normocephalic, atraumatic, no step-offs or deformities Eyes: Pupils equal, round and reactive to light.? ENT: Pharynx normal.? Neck: Normal inspection.? Neck supple.? CVS: Normal heart rate and rhythm.? Pulses normal.? Respiratory: No respiratory distress.? Breath sounds normal.? Abdomen: Soft and nontender.? Skin: Skin warm and dry.? Normal skin color.? Normal skin turgor.? Extremities: No lower extremity edema.? No calf ttp. 5/5 strength to bilateral upper and lower extremities Back: No midline tenderness, no C-spine tenderness, full range of motion, slight right-sided CVA tenderness Neuro: Oriented X 3.? No motor deficit.? No sensory deficit. CN 2-12 intact Course Reevaluation(s) Reevaluation #1: CBC unremarkable. A normocytic anemia which appears to be around patient's baseline is present. Chemistry with elevated BUN and creatinine deviating from baseline IV hydration initiated. Normal lactic acid. Lipase elevated 184. CT abdomen and pelvis showing a small nonobstructing left renal stone. No right renal stone or hydronephrosis. Normal appendix. Question mild wall thickening of the cecum. Small amount of fluid in the pelvis. UA still pending. Time: 12:43 Reevaluation #2: I did discuss this case with Dr. Raymond urology who recommends admission and treat as pyelonephritis Time: 15:33 Medications Administered Discontinued Medications Generic Name Dose Route Start Last Admin Trade Name Freq PRN Reason Stop Dose Admin Fentanyl 25 mcg 09/15/23 11:47 09/15/23 12:11 Fentanyl Citrate/Pf 100 Mcg/2 Ml Vial IVPUSH 09/15/23 11:48 25 mcg ONCE ONE Administration Protocol Fentanyl 25 mcg 09/15/23 12:43 09/15/23 13:11 Fentanyl Citrate/Pf 100 Mcg/2 Ml Vial IVPUSH 09/15/23 12:44 25 mcg ONCE ONE Administration Protocol Sodium Chloride 1,000 mls @ 999 mls/hr 09/15/23 10:45 09/15/23 12:11 Ns IV 09/15/23 11:45 Infused .Q1H1M LEANNA Infusion Ceftriaxone Sodium 1 gm/ 50 mls @ 100 mls/hr 09/15/23 10:45 09/15/23 12:11 Sodium Chloride IV 09/15/23 11:14 Infused ONCE ONE Infusion Sodium Chloride 500 mls @ 500 mls/hr 09/15/23 11:30 09/15/23 13:12 Ns IV 09/15/23 12:29 Infused .Q1H LEANNA Infusion Medical Decision Making Medical Decision Making [facility] Narrative: 1048 49-year-old female presents with right-sided flank pain x2 days recent UTI Physical exam right-sided CVA tenderness History and physical exam concerning for kidney stone versus pyelonephritis versus obstructing uropathy. Unlikely ectopic, torsion, acute abdomen. Plan labs, urine, imaging Differential Diagnosis Differential Diagnoses: The differential diagnosis associated with the presentation includes History and physical exam concerning for kidney stone versus pyelonephritis versus obstructing uropathy. Unlikely ectopic, torsion, acute abdomen. Admission/Observation Consideration of admission/observation: Escalation of care including admission/observation considered likely Consult Healthcare Provider Management of the patient was discussed with: Prosthetic Dentist (Dr. Raymond ) Lab Data MDM Lab Attestation statement: I reviewed the patient's lab results. 09/15/23 10:48 09/15/23 10:48 Labs: Lab Results 09/15/23 09/15/23 09/15/23 Range/Units 10:48 11:17 13:50 WBC 6.1 (4.8-10.8) X10*3/uL RBC 2.53 L (4.20-5.50) X10*6/uL Hgb 8.2 L (12.0-16.0) g/dl Hct 24.3 L (37.0-47.0) % MCV 96.0 (80.0-98.0) fL MCH 32.4 (27.0-33.0) pg MCHC 33.7 (31.0-35.0) g/dl RDW 13.6 (11.0-16.0) % Plt Count 186 (160-400) X10*3/uL MPV 10.5 (9.4-12.3) fL Immature Gran % (Auto) 0.3 (0.0-0.4) % Neut % (Auto) 77.3 H (45-73) % Lymph % (Auto) 9.9 L (20-40) % [place] % (Auto) 5.3 (2-11) % Eos % (Auto) 6.9 H (0-4) % Baso % (Auto) 0.3 (0-2) % Lymph # (Auto) 0.6 L (1.2-4.9) X10*3/uL [place] # (Auto) 0.3 (0.1-1.2) X10*3/uL Eos # (Auto) 0.4 (0.0-0.4) X10*3/uL Baso # (Auto) 0.0 (0.0-0.2) X10*3/uL Abs Immat Gran (auto) 0.02 (0.00-0.03) X10*3/uL Absolute Neuts (auto) 4.7 (2.0-8.3) x10*3/uL Absolute Nucleated RBC 0.000 (0.0-0.012) X10*3/uL Nucleated RBC % (auto) 0.0 (0.0-0.2) /100WBC Hold Purple Top SEE NOTE Sodium 143 (135-145) mmol/L Potassium 4.0 (3.3-5.1) mmol/L Chloride 115 H (96-108) mmol/L Carbon Dioxide 21 L (22-29) mmol/L Anion Gap 11 L (12-20) BUN 30 H (9-16) mg/dL Creatinine 2.03 H (0.5-1.4) mg/dL Estim Creat Clear Calc 16.2 Estimated GFR 25 Random Glucose 61 (60-115) mg/dL Lactic Acid 0.7 (0.5-2.0) mmol/L Calcium 8.3 L (8.4-10.2) mg/dL Magnesium 1.9 (1.6-2.6) mg/dL Total Bilirubin 0.3 (0.0-1.0) mg/dL AST 35 H (5-31) U/L ALT 25 (0-31) U/L Alkaline Phosphatase 54 (39-117) U/L Total Protein 6.5 (6.5-8.0) g/dL Albumin 3.3 L (3.5-5.0) g/dL Lipase 184 H (8-78) U/L Urine Color Yellow Urine Appearance Clear Urine pH 6.0 (5.0-9.0) Ur Specific [place] 1.015 (1.005-1.025) Urine Protein 30 (1+) H (Neg-Trace) mg/dL Urine Glucose (UA) Negative (Negative) mg/dL Urine Ketones Negative (Negative) mg/dL Urine Blood Negative (Negative) Urine Nitrite Negative (Negative) Ur Leukocyte Esterase Trace H (Negative) Urine RBC 0-2 (0-2) /HPF Urine WBC 11-20 H (0-5) /HPF Ur Squamous Epith Cells 3-5 (0-2) /HPF Urine Bacteria 1+ (None Seen) Hyaline Casts 0-2 (0-2) /LPF Urine Test NEGATIVE (NEGATIVE) Independent Interpretation I performed an independent interpretation of an: CT Scan (CT/CT abdomen pelvis wo IV con IMPRESSION: Small nonobstructing left renal stone. No right renal stone or hydronephrosis. Normal appendix. Question mild wall thickening of the cecum. Small amount of fluid in the pelvis. Gallstone. Fleischner guidelines were followed.) Radiology Impression Discussion of test interpretation with radiology: I have reviewed the radiologist's reading. External Record Review External record reviewed: Inpatient record, Office record, Outpatient record, Prior outpatient labs, Prior outpatient radiology, Primary care record and Outside ED record Prescription Management I considered prescription management with: Antibiotic (given here ) Chronic Conditions Patient?s care impacted by: Other (HIV not taking meds ) Critical Care Time Critical Care Time Critical Care Time: Yes Total Critical Care Time: 45 Attestation: I attest to this time spent taking care of the patient, obtaining history, physical, reviewing labs, imaging, speaking to my attending, specialist or hospitalist. Discharge Plan Discharge Clinical Impression: Pyelonephritis, COURT (acute kidney injury), Acute flank pain Patient Disposition: Admitted As Inpatient Prescriptions: No Action ondansetron 4 mg tablet,disintegrating 4 mg PO Q8H PRN (Reason: nausea and vomiting) Qty: 10 0RF Zyrtec 10 mg capsule 10 mg PO DAILY PRN (Reason: allergy symptoms) Qty: 14 0RF nystatin 100,000 unit/mL suspension 500,000 unit buccal DAILY 14 Days Qty: 70 0RF Rx Instructions: administer 1/2 of dose in each side of the mouth. Swish and swallow sulfamethoxazole-trimethoprim [Bactrim DS] 800-160 mg tablet 1 tab PO Q12H Qty: 9 0RF ondansetron 4 mg tablet,disintegrating 4 mg PO Q8H PRN (Reason: nausea and vomiting) Qty: 20 0RF albuterol sulfate 90 mcg/actuation HFA aerosol inhaler 2 puff inhalation Q6H PRN nystatin 100,000 unit/mL suspension 500,000 unit PO QID 10 Days Qty: 200 0RF Rx Instructions: administer 1/2 of dose in each side of the mouth Biktarvy 50-200-25 mg tablet 1 tab PO DAILY 30 Days Qty: 30 5RF Print Language: Kazakh
[2023-09-15 10:52] LABS: MANUAL DIFF FLAG NO
[2023-09-15 10:55] LABS: Basophils Percent Auto 0.3 % (0-2); Eosinophils Absolute Auto 0.4 X10*3/uL (0.0-0.4); Eosinophils Percent Auto 6.9 % (0-4); Hematocrit 24.3 % (37.0-47.0); Hemoglobin 8.2 g/dl (12.0-16.0); Imm Gran Abs Auto 0.02 X10*3/uL (0.00-0.03); Imm Gran Pct Auto 0.3 % (0.0-0.4); Lymphocytes Absolute Auto 0.6 X10*3/uL (1.2-4.9); Lymphocytes Percent Auto 9.9 % (20-40); Mean Corpuscular HGB Conc 33.7 g/dl (31.0-35.0); Mean Corpuscular Hemoglobin 32.4 pg (27.0-33.0); Mean Platelet Volume 10.5 fL (9.4-12.3); Monocytes Absolute Auto 0.3 X10*3/uL (0.1-1.2); Monocytes Percent Auto 5.3 % (2-11); Neutrophils Absolute Auto 4.7 x10*3/uL (2.0-8.3); Neutrophils Percent Auto 77.3 % (45-73); Platelet Count 186 X10*3/uL (160-400); Red Blood Count 2.53 X10*6/uL (4.20-5.50); Red Cell Distribution Width 13.6 % (11.0-16.0); White Blood Count 6.1 X10*3/uL (4.8-10.8)
[2023-09-15 11:09] LABS: Lipase 184 U/L (8-78)
[2023-09-15 11:18] LABS: Alanine Aminotransferase 25 U/L (0-31); Albumin Level 3.3 g/dL (3.5-5.0); Alkaline Phosphatase 54 U/L (39-117); Anion Gap 11 (12-20); Aspartate Amino Transferase 35 U/L (5-31); Bilirubin Total 0.3 mg/dL (0.0-1.0); Blood Urea Nitrogen 30 mg/dL (9-16); Calcium 8.3 mg/dL (8.4-10.2); Carbon Dioxide 21 mmol/L (22-29); Chloride 115 mmol/L (96-108); Creatinine Clr Calc Pharmacy 16.2; Estimated Glomerular Filt Rate 25; Glucose Random 61 mg/dL (60-115); Magnesium 1.9 mg/dL (1.6-2.6); Sodium 143 mmol/L (135-145); Total Protein 6.5 g/dL (6.5-8.0)
[2023-09-15] MEDS: 0.9 % Sodium Chloride 1,000 ML 999 ML IV (11:24)
[2023-09-15] MEDS: cefTRIAXone sodium 1 GM in 0.9 % Sodium Chloride 50 ML IV (11:24)
[2023-09-15 11:31] LABS: Lactic Acid 0.7 mmol/L (0.5-2.0)
[2023-09-15] MEDS: fentaNYL citrate/PF 100 MCG/2 ML VIAL 25 MCG IVPUSH ×2 (12:11→13:11)
[2023-09-15] MEDS: 0.9 % Sodium Chloride 500 ML IV (12:11)
--- NOTE | 2023-09-15 12:23 | PC.NURSE ---
ARRIVES FROM HOME ENDORSING R FLANK PAIN SINCE YESTERDAY, DENIES DYSURIA, MALAISE. APPEARS CHRONICALLY UNWELL, MALNOURISHED. #20 IN LFA, IVF RUNNING, MEDICATED FOR PAIN. UNABLE TO PROVIDE URINE SPECIMEN AT THIS TIME. AWAITING CT RESULTS.
[2023-09-15 13:56] LABS: Appearance Urine Clear; Color Urine Yellow; Glucose Urine UA Negative (Negative); Leukocyte Esterase Urine Trace (Negative); Nitrite Urine Negative (Negative); Specific Gravity - Urine 1.015 (1.005-1.025); UMIC TRIGGER UACC YES; Urine Blood Negative (Negative); Urine Ketones Negative (Negative); Urine Protein 30 (1+) mg/dL (Neg-Trace)
[2023-09-15 13:57] LABS: UPreg QC Valid YES; Urine Pregnancy NEGATIVE (NEGATIVE)
[2023-09-15 13:58] LABS: Bacteria Urine 1+ (None Seen); Hyaline Casts Urine 0-2 /LPF (0-2); RBC Urine 0-2 /HPF (0-2); UACC Culture Trigger YES
--- NOTE | 2023-09-15 15:56 | P.HPHOSP_ITS ---
History of Present Illness Date of Service: 09/15/23 Chief Complaint: right flank pain 57F PMH hiv (family unaware of diagnosis) non compliant with haart (reports recently restarting 1 week ptp), esophageal candidiasis complicated by anorexia, severe protein calorie malnutrition, unspecified asthma/copd, CKD 3, nephrolithiasis, presented with right flank pain. Patient reports pain started on early a.m. Day of presentation. Severe, 10/10, nonradiating, feels like previous kidney stone. Denies dysuria. Reports subjective fevers over the last day. Denies shortness of breath or cough. In ED CT abdomen showed nonobstructing stone on left side, not right. No obvious pyelo. UA was positive for pyuria, bacteriuria. Lab significant for COURT and CKD 3. Review of Systems 2 Review of Systems: Yes all other systems are reviewed and are negative [facility] Medical History Shingles Asthma CKD (chronic kidney disease) HIV infection Surgical History Hx of esophagogastroduodenoscopy Social History Patient Tobacco Use Status: Former Tobacco user Tobacco use type: Cigarette Smoked in Last 30 Days: No Use of substances other than those prescribed or required for medical reasons: No Advance Directives: No Advance Directives Information Provided: No Patient : No Meds Allergies Allergy/AdvReac Type Severity Reaction Status Date / Time nevirapine [From VIRAMUNE] Allergy Unknown UNKNOWN Verified 09/15/23 10:42 penicillin V Allergy Unknown itchy Verified 09/15/23 10:42 Penicillins [PENICILLINS] Allergy Unknown N/A Verified 09/15/23 10:42 sulfamethoxazole Allergy Unknown UNKNOWN, Verified 09/15/23 10:42 [From BACTRIM] upset stomach trimethoprim [From BACTRIM] Allergy Unknown UNKNOWN Verified 09/15/23 10:42 Home Medications ?Medication ?Instructions ?Recorded ?Confirmed ?Last Taken ?Type albuterol sulfate 90 mcg/actuation 2 puff inhalation Q6H PRN 11/16/20 Unknown History aerosol inhaler Physical Exam 2 Vital Signs and Narrative: Vital Signs: Last Vital Signs Temp 98.1 F 09/15/23 10:37 Pulse 54 09/15/23 13:10 Resp 16 09/15/23 13:10 BP 92/33 L 09/15/23 13:10 Pulse Ox 97 09/15/23 13:10 O2 Del Method Room Air 09/15/23 13:10 BMI result Body Mass Index 14.6 General: AO X 3, no acute distress, cachexic Resp: CTA bilateral, no accessory muscles used CVS: S1,S2,RRR GI: soft, non tender, non distended, right flank tender Neuro: motor grossly intact, alert Psych: appropriate affect, appropriate insight Results Labs 09/15/23 10:48 09/15/23 10:48 Labs: Laboratory Results - last 24 hr 09/15/23 09/15/23 09/15/23 10:48 11:17 13:50 MCV 96.0 MCH 32.4 MCHC 33.7 RDW 13.6 Plt Count 186 MPV 10.5 Immature Gran % (Auto) 0.3 Neut % (Auto) 77.3 H Lymph % (Auto) 9.9 L [place] % (Auto) 5.3 Eos % (Auto) 6.9 H Baso % (Auto) 0.3 Lymph # (Auto) 0.6 L [place] # (Auto) 0.3 Eos # (Auto) 0.4 Baso # (Auto) 0.0 Abs Immat Gran (auto) 0.02 Absolute Neuts (auto) 4.7 Absolute Nucleated RBC 0.000 Nucleated RBC % (auto) 0.0 Hold Purple Top SEE NOTE Anion Gap 11 L Estim Creat Clear Calc 16.2 Estimated GFR 25 Random Glucose 61 Lactic Acid 0.7 Calcium 8.3 L Magnesium 1.9 Total Bilirubin 0.3 AST 35 H ALT 25 Alkaline Phosphatase 54 Total Protein 6.5 Albumin 3.3 L Lipase 184 H Urine Color Yellow Urine Appearance Clear Urine pH 6.0 Ur Specific [place] 1.015 Urine Protein 30 (1+) H Urine Glucose (UA) Negative Urine Ketones Negative Urine Blood Negative Urine Nitrite Negative Ur Leukocyte Esterase Trace H Urine RBC 0-2 Urine WBC 11-20 H Ur Squamous Epith Cells 3-5 Urine Bacteria 1+ Hyaline Casts 0-2 Urine Test NEGATIVE Imaging Radiologist's Impressions: Impressions Abdomen/Pelvis CT 09/15/23 11:15 IMPRESSION: Small nonobstructing left renal stone. No right renal stone or hydronephrosis. Normal appendix. Question mild wall thickening of the cecum. Small amount of fluid in the pelvis. Gallstone. Fleischner guidelines were followed. Assessment and Plan (1) COURT (acute kidney injury): Status: Acute Plan 57F PMH hiv non compliant with haart (reports recently restarting 1 week ptp), esophageal candidiasis complicated by anorexia, severe protein calorie malnutrition, unspecified asthma/copd, CKD 3, nephrolithiasis, presented with right flank pain right flank pain acute right pyelonephritis vs msk pain iv rocephin, follow up cultures COURT on CKD III ivf, monitor hiv haart, ID eval severe protein calorie malnutrition encourage po intake unspecified asthma/copd stable, albuterol prn dvt prophylaxis - lovenox full code Patient with significant acute kidney injury and possible pyelonephritis. Due to severe protein calorie malnutrition HIV status at risk for further decompensation, therefore expected require at least 2 midnights inpatient Quality Stroke Does the patient have a stroke diagnosis?: No VTE Prior VTE?: No VTE Risk Level:: Medical - moderate - high VTE Device Contraindication: Treatment Not Indicated VTE Drug Contraindication: N/A - Med Ordered
--- NOTE | 2023-09-15 16:07 | MHC.EDTECH ---
This pct assumed care of Patient at 1500 ,vitals taken and Patient belonging list done ,Pt watching television ,Call [facility] within Pt reach .
[2023-09-15 16:18] LABS: Troponin-I High Sensitivity < 2.7 ng/L (<3.5-17.0)
--- NOTE | 2023-09-15 16:31 | PC.NURSE ---
PT AWARE OF PLAN FOR CARE AND ADMISSION. STATES PAIN MOSTLY RESOLVED AT THIS TIME. REQUESTING FOOD, AWAITING DIET ORDER
[2023-09-15] MEDS: 0.9 % Sodium Chloride Flush 3 ML SYRINGE IVFLUSH (16:53)
[2023-09-15] MEDS: Lactated Ringers 1,000 ML 80 ML IVCONT (16:54)
--- NOTE | 2023-09-15 16:58 | PHA.MEDREC ---
Pharmacy Consult ? Medication Reconciliation Pharmacy has completed the medication reconciliation. Completed by Pedro Marie who spoke to patient at bedside.
[2023-09-15] MEDS: Acetaminophen 325 MG TABLET 650 MG PO (18:24)
[2023-09-16 03:21] VITALS: BP 96/48; PULSE 53; RESP 18; TEMP 35.9; O2SAT 99
[2023-09-16] MEDS: Lactated Ringers 1,000 ML 80 ML IVCONT ×2 (05:12→15:58)
[2023-09-16 07:02] VITALS: BP 90/52; PULSE 57; RESP 16; TEMP 36.6; O2SAT 99
[2023-09-16 07:22] LABS: Hematocrit 23.4 % (37.0-47.0); Hemoglobin 7.5 g/dl (12.0-16.0); Mean Corpuscular HGB Conc 32.1 g/dl (31.0-35.0); Mean Corpuscular Volume 96.7 fL (80.0-98.0); Platelet Count 155 X10*3/uL (160-400); Red Blood Count 2.42 X10*6/uL (4.20-5.50); Red Cell Distribution Width 12.9 % (11.0-16.0); White Blood Count 3.7 X10*3/uL (4.8-10.8)
[2023-09-16] MEDS: Fluticasone Propionate 100 MCG BLST.W.DEV 1 PUFF INHALE (07:40)
[2023-09-16 07:41] VITALS: PULSE 66; RESP 15; O2SAT 97
[2023-09-16 07:52] LABS: Alanine Aminotransferase 22 U/L (0-31); Albumin Level 2.6 g/dL (3.5-5.0); Alkaline Phosphatase 42 U/L (39-117); Anion Gap 12 (12-20); Aspartate Amino Transferase 24 U/L (5-31); Bilirubin Direct < 0.2 mg/dL (0.0-0.5); Bilirubin Total 0.2 mg/dL (0.0-1.0); Blood Urea Nitrogen 22 mg/dL (9-16); Calcium 7.9 mg/dL (8.4-10.2); Carbon Dioxide 21 mmol/L (22-29); Chloride 118 mmol/L (96-108); Creatinine Clr Calc Pharmacy 21.2; Estimated Glomerular Filt Rate 35; Glucose Fasting 81 mg/dL (60-99); Magnesium 1.8 mg/dL (1.6-2.6); Potassium 5.1 mmol/L (3.3-5.1); Sodium 146 mmol/L (135-145); Total Protein 5.2 g/dL (6.5-8.0)
[2023-09-16] MEDS: Bictegrav/Emtricit/Tenofov Ala TABLET 1 TAB PO (07:56)
[2023-09-16] MEDS: Enoxaparin Sodium 30 MG/0.3 ML SYRINGE SUBCUT (07:57)
[2023-09-16] MEDS: Nystatin Oral Susp 500,000 UNIT/5 ML ORAL.SUSP 500000 UNIT BUCCAL (07:57)
--- NOTE | 2023-09-16 08:40 | HO.PM.IMPN ---
Subjective Subjective Date of Service: 09/16/23 Interval History: flank pain improving Physical Exam Vital Signs: Vital Signs: Last Vital Signs Temp 98 F 09/16/23 07:02 Pulse 66 09/16/23 07:41 Resp 15 09/16/23 07:41 BP 90/52 L 09/16/23 07:02 Pulse Ox 99 09/16/23 07:02 O2 Del Method Room Air 09/16/23 07:02 BMI result Body Mass Index 14.9 General: AO X 3, no acute distress, cachexic Resp: CTA bilateral, no accessory muscles used CVS: S1,S2,RRR GI: soft, non tender, non distended Neuro: motor grossly intact, alert Psych: appropriate affect, appropriate insight Objective Data Active Medications Acetaminophen (Acetaminophen 325 Mg Tablet) 650 mg PO Q6H PRN PRN Reason: mpain Last Admin: 09/15/23 18:24 Dose: 650 mg Documented By: BINU Albuterol Sulfate (Albuterol Sulfate 90 Mcg 8 Gm Inhaler) 2 puff INHALE Q4H PRN PRN Reason: Shortness Of Breath Or Wheezing Bictegravir/Emtricitabine/Tenofovir (Bictegrav/Emtricit/Tenofov Ala Tablet) 1 tab PO DAILY [facility] Last Admin: 09/16/23 07:56 Dose: 1 tab Documented By: BINU Enoxaparin Sodium (Enoxaparin Sodium 30 Mg/0.3 Ml Syringe) 30 mg SUBCUT Q24H [facility] Last Admin: 09/16/23 07:57 Dose: 30 mg Documented By: BINU Fluticasone Propionate (Fluticasone Propionate 100 Mcg Blst.W.Dev) 1 puff INHALE RBID [facility] Last Admin: 09/16/23 07:40 Dose: 1 puff Documented By: JEIMY Ceftriaxone Sodium 1 gm/ (Sodium Chloride) 50 mls @ 100 mls/hr IV Q24H [facility] Lactated Ringer's (Lr) 1,000 mls @ 80 mls/hr IVCONT .[id number] [facility] Last Admin: 09/16/23 05:12 Dose: 80 mls/hr Documented By: ESME Loratadine (Loratadine 10 Mg Tablet) 10 mg PO DAILY PRN PRN Reason: allergy symptoms Nystatin (Nystatin Oral Susp 500,000 Unit/5 Ml Oral.Susp) 500,000 unit BUCCAL DAILY LEANNA; Protocol Last Admin: 09/16/23 07:57 Dose: 500,000 unit Documented By: BINU Sodium Chloride (0.9 % Sodium Chloride Flush 3 Ml Syringe) 3 ml IVFLUSH QSHIFT LAENNA Last Admin: 09/16/23 07:05 Dose: Not Given Documented By: BINU Non-Admin Reason: IV Running Labs 09/16/23 05:41 09/16/23 05:41 Labs: Laboratory Results - last 24 hr 09/15/23 09/15/23 09/15/23 10:48 11:17 13:50 MCV 96.0 MCH 32.4 MCHC 33.7 RDW 13.6 Plt Count 186 MPV 10.5 Immature Gran % (Auto) 0.3 Neut % (Auto) 77.3 H Lymph % (Auto) 9.9 L [place] % (Auto) 5.3 Eos % (Auto) 6.9 H Baso % (Auto) 0.3 Lymph # (Auto) 0.6 L [place] # (Auto) 0.3 Eos # (Auto) 0.4 Baso # (Auto) 0.0 Abs Immat Gran (auto) 0.02 Absolute Neuts (auto) 4.7 Absolute Nucleated RBC 0.000 Nucleated RBC % (auto) 0.0 Hold Purple Top SEE NOTE Anion Gap 11 L Estim Creat Clear Calc 16.2 Estimated GFR 25 Random Glucose 61 Fasting Glucose Lactic Acid 0.7 Calcium 8.3 L Magnesium 1.9 Total Bilirubin 0.3 Direct Bilirubin AST 35 H ALT 25 Alkaline Phosphatase 54 Troponin I High Sens < 2.7 Total Protein 6.5 Albumin 3.3 L Lipase 184 H Urine Color Yellow Urine Appearance Clear Urine pH 6.0 Ur Specific [place] 1.015 Urine Protein 30 (1+) H Urine Glucose (UA) Negative Urine Ketones Negative Urine Blood Negative Urine Nitrite Negative Ur Leukocyte Esterase Trace H Urine RBC 0-2 Urine WBC 11-20 H Ur Squamous Epith Cells 3-5 Urine Bacteria 1+ Hyaline Casts 0-2 Urine Test NEGATIVE 09/16/23 05:41 MCV 96.7 MCH 31.0 MCHC 32.1 RDW 12.9 Plt Count 155 L MPV 11.0 Immature Gran % (Auto) Neut % (Auto) Lymph % (Auto) [place] % (Auto) Eos % (Auto) Baso % (Auto) Lymph # (Auto) [place] # (Auto) Eos # (Auto) Baso # (Auto) Abs Immat Gran (auto) Absolute Neuts (auto) Absolute Nucleated RBC 0.000 Nucleated RBC % (auto) 0.0 Hold Purple Top Anion Gap 12 Estim Creat Clear Calc 21.2 Estimated GFR 35 Random Glucose Fasting Glucose 81 Lactic Acid Calcium 7.9 L Magnesium 1.8 Total Bilirubin 0.2 Direct Bilirubin < 0.2 AST 24 ALT 22 Alkaline Phosphatase 42 Troponin I High Sens Total Protein 5.2 L Albumin 2.6 L Lipase Urine Color Urine Appearance Urine pH Ur Specific [place] Urine Protein Urine Glucose (UA) Urine Ketones Urine Blood Urine Nitrite Ur Leukocyte Esterase Urine RBC Urine WBC Ur Squamous Epith Cells Urine Bacteria Hyaline Casts Urine Test Microbiology Microbiology Results: Microbiology 09/15/23 Unknown Urine Culture - Final Urine clean catch - Urine vasques top No growth. Assessment and Plan (1) COURT (acute kidney injury): Status: Acute Plan 57F PMH hiv non compliant with haart (reports recently restarting 1 week ptp), esophageal candidiasis complicated by anorexia, severe protein calorie malnutrition, unspecified asthma/copd, CKD 3, nephrolithiasis, presented with right flank pain right flank pain acute right pyelonephritis vs msk pain pain improved continue iv rocephin, urine culture negative, follow up blood cultures COURT on CKD III ivf, improving, monitor hiv haart, ID eval severe protein calorie malnutrition encourage po intake unspecified asthma/copd stable, albuterol prn dvt prophylaxis - lovenox full code reason for continued hospitalization:ivf for court Quality Stroke Does the patient have a stroke diagnosis?: No VTE Prior VTE?: No VTE Risk Level:: Medical - moderate - high VTE Device Contraindication: Treatment Not Indicated VTE Drug Contraindication: N/A - Med Ordered
[2023-09-16 15:37] VITALS: BP 99/56; PULSE 63; RESP 15; TEMP 37.2
[2023-09-16 16:01] VITALS: BP 99/56; PULSE 63; RESP 16; TEMP 37.2; O2SAT 98
[2023-09-16] MEDS: cefTRIAXone sodium 1 GM in 0.9 % Sodium Chloride 50 ML IV (16:03)
--- NOTE | 2023-09-16 16:23 | MHC.CM.PN ---
PT REPORTS SHE LIVES WITH HER GRAND KIDS, AGES 10 AND 1. SHE IS INDEPENDENT WITH CARE, HAS NO DME AND NO SERVICES PT DOES NOT HAVE A HCP, SHE IS UNSURE IF SHE WANTS TO COMPLETE ONE WHILE HERE PCP: VELMA ZUNIGA DCP: HOME NO SERVICES VIA PRIVATE TRANSPORT
[2023-09-16 19:34] VITALS: BP 93/52; PULSE 54; RESP 17; TEMP 36.7; O2SAT 98
[2023-09-17] VITALS (10 sets, daily range): BP systolic 90–121; BP diastolic 51–64; PULSE 51–65; RESP 14–16; TEMP 36–36.7; O2SAT 96–99; BMI 14.9
[2023-09-17] MEDS: Albumin Human 25 % 100 ML 133.33 ML IV ×2 (03:46→04:43)
[2023-09-17] MEDS: Lactated Ringers 1,000 ML 80 ML IVCONT ×2 (04:43→17:35)
--- NOTE | 2023-09-17 06:43 | PC.NURSE ---
at 0330 pt bp 90/52 HR51, notified, rececived 2 dose of albumin human 25%, rechecked bp at 0640 bp 92/51, HR 51. made aware. pt walked to the br afew times. will cont. monitor.
[2023-09-17 07:00] LABS: Mean Corpuscular HGB Conc 33.7 g/dl (31.0-35.0); Mean Corpuscular Volume 101.1 fL (80.0-98.0); Platelet Count 146 X10*3/uL (160-400); Red Blood Count 1.88 X10*6/uL (4.20-5.50); White Blood Count 3.7 X10*3/uL (4.8-10.8)
[2023-09-17 07:18] LABS: Anion Gap 9 (12-20); Blood Urea Nitrogen 15 mg/dL (9-16); Carbon Dioxide 22 mmol/L (22-29); Chloride 115 mmol/L (96-108); Creatinine Clr Calc Pharmacy 24.6; Estimated Glomerular Filt Rate 41; Glucose Fasting 76 mg/dL (60-99); Potassium 4.5 mmol/L (3.3-5.1); Sodium 141 mmol/L (135-145)
[2023-09-17 07:51] LABS: Hemoglobin 6.4 g/dl (12.0-16.0)
[2023-09-17] MEDS: Nystatin Oral Susp 500,000 UNIT/5 ML ORAL.SUSP 500000 UNIT BUCCAL (08:03)
[2023-09-17] MEDS: Bictegrav/Emtricit/Tenofov Ala TABLET 1 TAB PO (08:03)
[2023-09-17] MEDS: Fluticasone Propionate 100 MCG BLST.W.DEV 1 PUFF INHALE (08:09)
[2023-09-17 08:26] LABS: Iron 59 mcg/dL (30-160); Lactate Dehydrogenase 107 U/L (122-220); Percent Iron Saturation 50 % (15-50); Total Iron Binding Capacity 118 mcg/dL (228-428); Unsaturated Iron Binding 59 ug/dL
[2023-09-17 08:39] LABS: Ferritin 503 ng/mL (10-250)
--- NOTE | 2023-09-17 09:48 | P.PNIM_ITS ---
Subjective Subjective Date of Service: 09/17/23 Interval History: flank pain resolved Physical Exam 2 Vital Signs: Vital Signs: Last Vital Signs Temp 97.9 F 09/17/23 09:47 Pulse 56 09/17/23 09:47 Resp 16 09/17/23 09:47 BP 121/64 09/17/23 09:47 Pulse Ox 98 09/17/23 09:47 O2 Del Method Room Air 09/17/23 09:47 BMI result Body Mass Index 14.9 General: AO X 3, no acute distress, cachexic Resp: CTA bilateral, no accessory muscles used CVS: S1,S2,RRR GI: soft, non tender, non distended Neuro: motor grossly intact, alert Psych: appropriate affect, appropriate insight Objective Data Active Medications Acetaminophen (Acetaminophen 325 Mg Tablet) 650 mg PO Q6H PRN PRN Reason: mpain Last Admin: 09/15/23 18:24 Dose: 650 mg Documented By: BINU Albuterol Sulfate (Albuterol Sulfate 90 Mcg 8 Gm Inhaler) 2 puff INHALE Q4H PRN PRN Reason: Shortness Of Breath Or Wheezing Bictegravir/Emtricitabine/Tenofovir (Bictegrav/Emtricit/Tenofov Ala Tablet) 1 tab PO DAILY [facility] [place] Last Admin: 09/17/23 08:03 Dose: 1 tab Documented By: BINU Enoxaparin Sodium (Enoxaparin Sodium 30 Mg/0.3 Ml Syringe) 30 mg SUBCUT Q24H [facility] [place] Last Admin: 09/17/23 08:02 Dose: Not Given Documented By: BINU Non-Admin Reason: low H&H md held Fluticasone Propionate (Fluticasone Propionate 100 Mcg Blst.W.Dev) 1 puff INHALE RBID [facility] [place] Last Admin: 09/17/23 08:09 Dose: 1 puff Documented By: REGLA Ceftriaxone Sodium 1 gm/ (Sodium Chloride) 50 mls @ 100 mls/hr IV Q24H [facility] [place] Last Infusion: 09/16/23 16:38 Dose: Infused Documented By: BINU Lactated Ringer's (Lr) 1,000 mls @ 80 mls/hr IVCONT .[id number] [facility] [place] Last Admin: 09/17/23 04:43 Dose: 80 mls/hr Documented By: HO.CHOIP Loratadine (Loratadine 10 Mg Tablet) 10 mg PO DAILY PRN PRN Reason: allergy symptoms Nystatin (Nystatin Oral Susp 500,000 Unit/5 Ml Oral.Susp) 500,000 unit BUCCAL DAILY [facility]; Protocol Last Admin: 09/17/23 08:03 Dose: 500,000 unit Documented By: BINU Sodium Chloride (0.9 % Sodium Chloride Flush 3 Ml Syringe) 3 ml IVFLUSH QSHIFT [facility] Last Admin: 09/17/23 06:59 Dose: Not Given Documented By: BINU Non-Admin Reason: IV Running Labs 09/17/23 05:43 09/17/23 05:43 Labs: Laboratory Results - last 24 hr 09/17/23 09/17/23 05:43 08:12 MCV 101.1 H MCH 34.0 H MCHC 33.7 RDW Not Reportable Plt Count 146 L MPV 11.0 Absolute Nucleated RBC 0.000 Nucleated RBC % (auto) 0.0 Anion Gap 9 L Estim Creat Clear Calc 24.6 Estimated GFR 41 Fasting Glucose 76 Calcium 8.0 L Iron 59 TIBC 118 L % Saturation 50 Unsat Iron Binding 59 Ferritin 503 H Lactate Dehydrogenase 107 L Blood Type A Positive Antibody Screen NEGATIVE Crossmatch See Detail Microbiology Microbiology Results: Microbiology 09/15/23 11:17 Blood Culture - Preliminary Blood - Venous No growth after 24 hours. 09/15/23 11:17 Blood Culture - Preliminary Blood - Venous No growth after 24 hours. 09/15/23 Unknown Urine Culture - Final Urine clean catch - Urine vasques top No growth. Assessment and Plan (1) COURT (acute kidney injury): Status: Acute Plan 57F PMH hiv non compliant with haart (reports recently restarting 1 week ptp), esophageal candidiasis complicated by anorexia, severe protein calorie malnutrition, unspecified asthma/copd, CKD 3, nephrolithiasis, presented with right flank pain right flank pain acute right pyelonephritis vs msk pain pain improved continue iv rocephin, cultures negative acute unspecified anemia with pancytopenia iron studies normal, ldh mildly elevated hematology eval, transfuse 1 unit, monitor COURT on CKD III ivf, improving, monitor hiv haart, ID eval severe protein calorie malnutrition encourage po intake unspecified asthma/copd stable, albuterol prn dvt prophylaxis - lovenox full code reason for continued hospitalization:anemia, transfusing Quality Stroke Does the patient have a stroke diagnosis?: No VTE Prior VTE?: No VTE Risk Level:: Medical - moderate - high VTE Device Contraindication: Treatment Not Indicated VTE Drug Contraindication: N/A - Med Ordered
--- NOTE | 2023-09-17 09:55 | P.CNHO_ITS ---
Subjective - Subjective Chief complaint: Consult for: Pancytopenia. Patient: new to practice Consult date: 09/17/23 Requesting Physician: Camilla Primary Care Provider: Theodora Sampson MD Family Provider: Camilla Medical Summary: DIAGNOSIS: PANCYTOPENIA. HPI - Consult Narrative Reason for consult: Consult for: Pancytopenia. Narrative: I have been asked by Bradley to see Renetta Tee who is a 57 year old lady with a H/O CKD, HIV, recently restarted on HAART. She presented on 09/14 with severe right flank pain. Pain started 2 days ago, was dull, 10/10, without radiation. [place] like previous kidney stone. Denies dysuria. Had accompanying fever. Denies shortness of breath or cough. Cat scan actually revealed non obstructing stone on the left kidney. No obvious pyelo. U/A positive for WBC and bacteria. Concern is pyelonephritis. Noted to have oral candidiasis. Started on IV Ceftriaxone and po Nystatin. DATA BASE: CBC on 09/14: wbc 6.1,hgb 8.2, hct 24.3,plt 186. CBC on 09/16: wbc 3.7, mcv 101, hgb 6.4, hct 20, plt 146. COURT and CKD 3. HPI: HIV (family unaware of diagnosis) non compliant with haart (reports recently restarting 1 week ptp), Esophageal candidiasis complicated by anorexia, Protein calorie malnutrition, Asthma/copd, CKD 3, Nephrolithiasis, presented with right flank pain. Lab significant for Review of Systems 2 Review of Systems: Yes all other systems are reviewed and are negative PMFSH Medical History: Shingles Asthma CKD (chronic kidney disease) HIV infection Surgical History: Hx of esophagogastroduodenoscopy Social History: Patient Tobacco Use Status: Former Tobacco user Tobacco use type: Cigarette Smoked in Last 30 Days: No Use of substances other than those prescribed or required for medical reasons: No Advance Directives: No Advance Directives Information Provided: No Patient : No Review of Systems - Constitutional Reports system reviewed and no additional complaints, except as documented, Reports anorexia, Reports fatigue, Reports fever(s), Reports lack of energy, Reports malaise, Reports poor appetite, Reports weakness - Eyes Reports system reviewed and no additional complaints, except as documented - ENT Reports system reviewed and no additional complaints, except as documented - Cardiovascular Reports system reviewed and no additional complaints, except as documented - Respiratory Reports no additional respiratory complaints - Gastrointestinal Reports system reviewed and no additional complaints, except as documented - Genitourinary Reports no additional female genitourinary complaints - Musculoskeletal Reports system reviewed and no additional complaints, except as documented - Integumentary/Breasts Skin/Breast: Reports no additional skin complaints - Neurologic Reports system reviewed and no additional complaints, except as documented - Psychiatric Reports system reviewed and no additional complaints, except as documented - Endocrine Reports no additional endocrine complaints - Hematologic/Lymphatic Reports system reviewed and no additional complaints, except as documented - Allergic/Immunologic Reports system reviewed and no additional complaints, except as documented Oncology Screenings - ECOG Performance Status ECOG Performance Status: 2 [facility] Medical History: Medical History (Last Reviewed 09/19/23 @ 16:46 by Tiffany Cline MD) Asthma CKD (chronic kidney disease) HIV infection Shingles Functional capacity: uses cane/walker Patient : No Surgical History: Surgical History (Last Reviewed 09/19/23 @ 16:46 by Tiffany Cline MD) Hx of esophagogastroduodenoscopy Social History: Social History (Last Reviewed 09/19/23 @ 16:46 by Tiffany Cline MD) Living Situation History: Household Members: Family Housing: Apartment Do you presently have visiting nurse or other home services: No Tobacco History: Patient Tobacco Use Status: Former Tobacco user Tobacco use type: Cigarette Occupation Assessmet: service: No Patient Tobacco Use Status: Former Tobacco user Current occupational exposures/hazards: No Home Medications and Allergies Current Medications: Current Medications Acetaminophen (Acetaminophen 325 Mg Tablet) 650 mg PO Q6H PRN PRN Reason: mpain Last Admin: 09/15/23 18:24 Dose: 650 mg Albuterol Sulfate (Albuterol Sulfate 90 Mcg 8 Gm Inhaler) 2 puff INHALE Q4H PRN PRN Reason: Shortness Of Breath Or Wheezing Bictegravir/Emtricitabine/Tenofovir (Bictegrav/Emtricit/Tenofov Ala Tablet) 1 tab PO DAILY [facility] Last Admin: 09/17/23 08:03 Dose: 1 tab Enoxaparin Sodium (Enoxaparin Sodium 30 Mg/0.3 Ml Syringe) 30 mg SUBCUT Q24H [facility] Last Admin: 09/17/23 08:02 Dose: Not Given Fluticasone Propionate (Fluticasone Propionate 100 Mcg Blst.W.Dev) 1 puff INHALE RBID COUNT INCLUDES [facility] Last Admin: 09/17/23 08:09 Dose: 1 puff Ceftriaxone Sodium 1 gm/ (Sodium Chloride) 50 mls @ 100 mls/hr IV Q24H COUNT [facility]CLUDES [facility] Last Infusion: 09/16/23 16:38 Dose: Infused Lactated Ringer's (Lr) 1,000 mls @ 80 mls/hr IVCONT .[id number] COUNT INCLUDES THE [facility] Last Admin: 09/17/23 04:43 Dose: 80 mls/hr Loratadine (Loratadine 10 Mg Tablet) 10 mg PO DAILY PRN PRN Reason: allergy symptoms Nystatin (Nystatin Oral Susp 500,000 Unit/5 Ml Oral.Susp) 500,000 unit BUCCAL DAILY COUNT [facility]CLUD[facility]; Protocol Last Admin: 09/17/23 08:03 Dose: 500,000 unit Sodium Chloride (0.9 % Sodium Chloride Flush 3 Ml Syringe) 3 ml IVFLUSH QSHIFT COUNT [facility]CLUDES [facility] Last Admin: 09/17/23 06:59 Dose: Not Given Home Medications ?Medication ?Instructions ?Recorded ?Confirmed ?Type albuterol sulfate 90 mcg/actuation 2 puff inhalation Q4H PRN 11/16/20 09/15/23 History aerosol inhaler Shortness Of Breath Or Wheezing mometasone 100 mcg/actuation HFA 1 puff inhalation BID 09/15/23 09/15/23 History aerosol inhaler (Asmanex HFA) Allergies Allergy/AdvReac Type Severity Reaction Status Date / Time nevirapine [From VIRAMUNE] Allergy Unknown UNKNOWN Verified 09/15/23 10:42 penicillin V Allergy Unknown itchy Verified 09/15/23 10:42 Penicillins [PENICILLINS] Allergy Unknown N/A Verified 09/15/23 10:42 sulfamethoxazole Allergy Unknown UNKNOWN, Verified 09/15/23 10:42 [From BACTRIM] upset stomach trimethoprim [From BACTRIM] Allergy Unknown UNKNOWN Verified 09/15/23 10:42 Physical Exam Vital signs: Vital Signs Temp 97.9 F 09/17/23 09:47 Pulse 56 09/17/23 09:47 Resp 16 09/17/23 09:47 BP 121/64 09/17/23 09:47 Pulse Ox 98 09/17/23 09:47 O2 Del Method Room Air 09/17/23 09:47 Intake & Output 09/16/23 09/17/23 09/17/23 18:59 06:59 18:59 Intake Total 1131.333 / 2571.333 1440 / 2571.333 Balance 1131.333 / 2571.333 1440 / 2571.333 Intake: Intake, Oral Amount 220 / 460 240 / 460 Intake, IV Amount 911.333 / 2111.333 1200 / 2111.333 Albumin Human 25 % 100 ml @ 133 200 / 200 .333 mls/hr IV Q1H [facility] Rx#: [id number] cefTRIAXone sodium 1 gm In 0.9 50 / 50 % Sodium Chloride 50 ml @ 100 mls/hr IV Q24H [facility] Rx#: [id number] Lactated Ringers 1,000 ml @ 80 861.333 / 1425.189 2700 / 1861.333 mls/hr IVCONT .[id number] [facility] Rx#: [id number] Other: Breakfast % Eaten 50% Lunch % Eaten 50% Number of Unmeasured Voids 1 Urine Bathroom Weight 33.5 kg Weight 33.5 kg - Constitutional Present: mild distress - Routine HEENT Exam Head: Present: normal inspection, normocephalic Eye: Present: normal appearance ENT: Present: mucous membranes moist - Routine Neck Exam Present: supple - Routine Respiratory Exam Present: CTAB - Routine Cardiovascular Exam Cardiovascular: Present: RRR, S2 - Routine Abdominal Exam Present: nontender - Routine Extremities Exam Present: nontender - Routine Skin Exam Present: intact - Routine Neurological Exam Present: alert, oriented X3 - Detailed Neurological Exam: Coma Scale Eye Opening: Spontaneous (4) Verbal Response: Oriented (5) Motor Response: Obeys commands (6) Debi Coma Scale Total: 15 - Routine Psychiatric Exam Present: depressed Hem/Onc Consult Result - Labs CBC & Chem 7: 09/18/23 05:43 09/18/23 05:43 Labs: Short CBC 09/17/23 Range/Units 05:43 WBC 3.7 L (4.8-10.8) X10*3/uL Hgb 6.4 L* (12.0-16.0) g/dl Hct 19.0 L* (37.0-47.0) % Plt Count 146 L (160-400) X10*3/uL BMP 09/17/23 05:43 Sodium 141 Potassium 4.5 Chloride 115 H Carbon Dioxide 22 BUN 15 Creatinine 1.32 Calcium 8.0 L Assessment and Plan Patient Active problem list reviewed?: Yes (1) Pancytopenia Status: Acute Assessment and plan: 57 year old lady with H/O HIV, restarted on HAART, a week ago, presented on 09/14 with Acute Pyelonephritis, and oral candidiasis. Noted to develop progressive Panctopenia. DIFFERENTIAL DIAGNOSIS: 1. INFECTION RELATED: Pyelonephritis, in combination with underlying HIV, with ?O.I. 2. RELATED TO MEDS: Has been on Bactrim, Is on IV antibiotics. 3. B12/FOLATE DEFICIENCY: Anemia is macrocytic. 4. HEMOLYTIC ANEMIA: is in the differential for anemia. 5. ACD: She is in a setting for it. 6. PRCA: Seen in the setting of HIV. Retic count would be very low in this case. 7. BONE MARROW SUPPRESSION/INFILTRATION: Related to HIV, O.I, or malignancy: MDS, Myeloma vs Lymphoma. PLAN: Will proceed with further evaluation. Check B12/folate levels: 973/4.8. Hemolytic screen: Retic 0.9, LDH: 107. Check Parvo vius B12, viral studies: Negative. SIEP: no monoclonal spike. Follow blood count carefully. Proceed with a bone marrow exam, if it continues to decline. Meanwhile transfuse PRBCs. Thanks, 09/17: CBC: WBC 4.7, HGB 8.6, HCT 23.8, PLT 168. Blood count has improved. CBC continued to improve on a daily basis. Reassuring. - Time Spent With Patient Time Spent with Patient (in minutes): 30
--- NOTE | 2023-09-17 12:40 | MHC.CLN ---
NUTRITION CONSULT FOR MALNUTRITION. DIET=REGULAR. PATIENT WITH ESOPHAGEAL CANDIDIASIS, ANOREXIA, AND HIV. HAD NOT BEEN ABLE TO TOLERATE PO INTAKE PRIOR TO ADMISSION DUE TO CANDIDIASIS. REPORTS THAT IS ABLE TO EAT NOW. INTAKE 25-50%. TAKES SUPPLEMENT AT HOME. ADDING ENSURE TID. PROVIDES 1050 KCALS, 60 G PROTEIN. SIGNIFICANT WEIGHT LOSS X ONE MONTH=-14.3% AND X ONE YEAR=-33%. QUALIFIES SEVERELY MALNOURISHED BASED ON SIGNIFICANT WEIGHT LOSS, POOR PO, SEVERE DEPLETION OF BODY FAT AND MUSCLE MASS. FOLLOW FOR INTAKE AND DIET TOLERANCE. SEE CLINICAL NUTRITION ASSESSMENT 09/17/23.
[2023-09-17] MEDS: cefTRIAXone sodium 1 GM in 0.9 % Sodium Chloride 50 ML IV (15:19)
[2023-09-17 18:46] LABS: Immature Retic Fraction 18.9 % (3.0-15.9); Retic HGB Equivalent 32.2 pg (30.0-35.0); Reticulocyte Percent 0.9 % (0.5-1.8); Reticulocytes Absolute 0.024 X10*6/uL (0.026-0.095)
[2023-09-17 19:41] LABS: Folate 4.8 ng/mL (> or = 4.0); Vitamin B12 973 pg/mL (200-900)
[2023-09-18 03:57] VITALS: BP 110/53; PULSE 52; RESP 14; TEMP 36.4; O2SAT 96
[2023-09-18] MEDS: Lactated Ringers 1,000 ML 80 ML IVCONT (06:21)
[2023-09-18 06:52] LABS: Hematocrit 23.8 % (37.0-47.0); Hemoglobin 8.6 g/dl (12.0-16.0); Mean Corpuscular HGB Conc 36.1 g/dl (31.0-35.0); Mean Corpuscular Hemoglobin 36.1 pg (27.0-33.0); Mean Platelet Volume 10.6 fL (9.4-12.3); Platelet Count 168 X10*3/uL (160-400); Red Blood Count 2.38 X10*6/uL (4.20-5.50); Red Cell Distribution Width 15.7 % (11.0-16.0); White Blood Count 4.7 X10*3/uL (4.8-10.8)
[2023-09-18 07:08] LABS: Anion Gap 9 (12-20); Blood Urea Nitrogen 16 mg/dL (9-16); Calcium 8.1 mg/dL (8.4-10.2); Carbon Dioxide 26 mmol/L (22-29); Chloride 112 mmol/L (96-108); Creatinine Clr Calc Pharmacy 26.4; Estimated Glomerular Filt Rate 45; Glucose Fasting 79 mg/dL (60-99); Sodium 142 mmol/L (135-145)
[2023-09-18 07:59] VITALS: BP 104/70; PULSE 55; RESP 15; TEMP 36.3; O2SAT 95
[2023-09-18] MEDS: Atovaquone 750 MG/5 ML ORAL.SUSP 1500 MG PO (08:31)
[2023-09-18] MEDS: Fluconazole 100 MG TABLET 200 MG PO (08:31)
[2023-09-18] MEDS: Bictegrav/Emtricit/Tenofov Ala TABLET 1 TAB PO (08:31)
[2023-09-18] MEDS: 0.9 % Sodium Chloride Flush 3 ML SYRINGE IVFLUSH (08:32)
[2023-09-18] MEDS: Enoxaparin Sodium 30 MG/0.3 ML SYRINGE SUBCUT (08:32)
[2023-09-18] MEDS: Nystatin Oral Susp 500,000 UNIT/5 ML ORAL.SUSP 500000 UNIT BUCCAL (08:32)
--- NOTE | 2023-09-18 09:36 | P.DS_ITS ---
DS: Providers Provider Date of Service: 09/18/23 Date of admission: 09/15/23 15:55 Primary care physician: Theodora Sampson MD Consults: 09/15/23 15:54 Consult to Infectious Diseases Routine [place] [facility] [place] Disease Reason for consultation: hiv, ?pyelo 09/17/23 09:48 Consult to Hematology / Oncology Routine Consulting Provider: Niecy Helton Reason for consultation: pancytopenia DS: Diagnosis Discharge Diagnosis (1) Pancytopenia: Status: Acute DS: Summary Hospital Course Hospital Course: from initial hpi: 57F PMH hiv (family unaware of diagnosis) non compliant with haart (reports recently restarting 1 week ptp), esophageal candidiasis complicated by anorexia, severe protein calorie malnutrition, unspecified asthma/copd, CKD 3, nephrolithiasis, presented with right flank pain. Patient reports pain started on early a.m. Day of presentation. Severe, 10/10, nonradiating, feels like previous kidney stone. Denies dysuria. Reports subjective fevers over the last day. Denies shortness of breath or cough. In ED CT abdomen showed nonobstructing stone on left side, not right. No obvious pyelo. UA was positive for pyuria, bacteriuria. Lab significant for COURT and CKD 3. hospital course: Patient was admitted for right flank pain possibly due to acute right pyelonephritis versus musculoskeletal pain. Patient was treated with IV ceftriaxone empirically and pain improved. Her blood cultures and urine cultures were negative. She will be discharged on 5 more days of p.o. cefuroxime. Course was complicated by acute unspecified anemia with pancytopenia. Iron studies were normal, LDH only mildly elevated. Was seen by Hematology who started workup which should be followed up outpatient. She was transfused 1 unit PRBC and hemoglobin improved appropriately. CBC should be repeated in about 1 week as outpatient. For acute kidney injury on CKD 3 likely due to poor p.o. intake. Patient was treated with IV fluids and creatinine returned to baseline. For HIV patient was continued on Biktarvy, she was seen by infectious disease who recommended Mepron prophylaxis and switching nystatin to Diflucan. For severe protein calorie malnutrition p.o. intake was encouraged. For unspecified asthma/COPD she remained stable with albuterol as needed. Patient is feeling better will be discharged home. Time Attestation Discharge Coordination Time (in mins): 35 Quality: Safe Use of Opioids Does Pt have an Active Cancer Diagnosis on the Problem List?: No Quality: Stroke Does the patient have a stroke diagnosis?: No Physical Exam Vital Signs: Vital Signs: Last Vital Signs Temp 97.4 F 09/18/23 07:59 Pulse 55 09/18/23 07:59 Resp 15 09/18/23 07:59 BP 104/70 09/18/23 07:59 Pulse Ox 95 09/18/23 07:59 O2 Del Method Room Air 09/18/23 07:59 BMI result Body Mass Index 14.9 General: AO X 3, no acute distress, cachexic Resp: CTA bilateral, no accessory muscles used CVS: S1,S2,RRR GI: soft, non tender, non distended Neuro: motor grossly intact, alert Psych: appropriate affect, appropriate insight DS: Data Data Completed and Pending Labs on day of discharge: Laboratory Results - last 24 hr 09/17/23 09/17/23 09/18/23 08:12 18:28 05:43 WBC 4.7 L RBC 2.38 L D Hgb 8.6 L D Hct 23.8 L D MCV 100.0 H MCH 36.1 H MCHC 36.1 H RDW 15.7 Plt Count 168 MPV 10.6 Absolute Nucleated RBC 0.000 Nucleated RBC % (auto) 0.0 Absolute Retic 0.024 L Percent Retic 0.9 Immature Retic Fraction 18.9 H Retic Hgb Equivalent 32.2 Sodium 142 Potassium 5.0 Chloride 112 H Carbon Dioxide 26 Anion Gap 9 L BUN 16 Creatinine 1.23 Estim Creat Clear Calc 26.4 Estimated GFR 45 Fasting Glucose 79 Calcium 8.1 L Vitamin B12 973 H Folate 4.8 Blood Type A Positive Antibody Screen NEGATIVE Crossmatch See Detail Preliminary micro results at discharge 09/15/23 11:17 Blood Culture - Preliminary Blood - Venous No growth after 48 hours. 09/15/23 11:17 Blood Culture - Preliminary Blood - Venous No growth after 48 hours. Discharge Plan Discharge Anticipated Discharge Date/Time: 09/18/23 09:31 Patient Disposition: Home, Self-Care Discharge Diagnosis: pancytoepnia, court, pyelo Referrals: Tiffany Cline MD [Physician] - 1 Week Niecy Helton MD [Physician] - 1 Week Theodora Sampson MD [Primary Care Provider] - 1 Week Discharge Medications: New fluconazole 100 mg Tablet 200 mg PO DAILY Qty: 180 0RF cefuroxime axetil 500 mg tablet 500 mg PO BID Qty: 10 0RF atovaquone [Mepron] 750 mg/5 mL suspension 1,500 mg PO DAILY 90 Days Qty: 900 0RF Rx Instructions: must administer with food, preferably a high-fat meal Continued ondansetron 4 mg tablet,disintegrating 4 mg PO Q8H PRN (Reason: nausea and vomiting) Qty: 10 0RF Zyrtec 10 mg capsule 10 mg PO DAILY PRN (Reason: allergy symptoms) Qty: 14 0RF Asmanex HFA 100 mcg/actuation HFA aerosol inhaler 1 puff INHALATION BID albuterol sulfate 90 mcg/actuation HFA aerosol inhaler 2 puff inhalation Q4H PRN (Reason: Shortness Of Breath Or Wheezing) Biktarvy 50-200-25 mg tablet 1 tab PO DAILY 30 Days Qty: 30 5RF Discontinued nystatin 100,000 unit/mL suspension 500,000 unit buccal DAILY 14 Days Qty: 70 0RF Rx Instructions: administer 1/2 of dose in each side of the mouth. Swish and swallow Discharge Orders: Discharge Order (Routine); Ordered 09/18/23 Ordered By: Abundio Huerta Diet: Advance to usual diet Activity on Discharge: As tolerated Stand Alone Forms: Patient Portal Discharge page Print Language: Georgian Other Ambulatory Orders: Complete Blood Count Auto Diff (Routine) Timeframe: 1 Week Facility: [facility] - Location: Laboratory Ordered By: Abundio Huerta Comprehensive Met. Panel (Routine) Timeframe: 1 Week Facility: [facility] - Location: Laboratory Ordered By: Abundio Huerta Care Plan Goals: recovery Health Concerns: hiv Plan of Treatment: meds as prescribe, repeat labs in about 1 weeks, follow up with hematology, ID Assessment: see above Patient Instructions: Acute Kidney Injury (GEN), Kidney Infection (GEN)
--- NOTE | 2023-09-18 09:42 | MHC.CM.PN ---
pt dcd home self care
--- NOTE | 2023-09-19 00:04 | P.CNID_ITS ---
History of Present Illness Data of Consult Service Date: 09/17/23 Requesting physician: Abundio Huerta Primary Care Provider: Theodora Sampson MD HPI Reason for consult: right flank pain She comes in with right flank pain,7/10 for two days. She has no fever or chills. She has AIDS and nonadherent to HAART. She has had some dysuria. She has small left kidney stone. She has CD4 count undetectable and viral load 239,000 on August 30 and started Biktarvy. Review of Systems 2 Review of Systems: Yes all other systems are reviewed and are negative FORMERLY [facility], [facility] Past Medical History Medical History Shingles Asthma CKD (chronic kidney disease) HIV infection Family History Family history: reviewed and not pertinent Surgical History Surgical History Hx of esophagogastroduodenoscopy Social History Social History Household Members: Family Housing: Apartment Do you presently have visiting nurse or other home services: No Patient Tobacco Use Status: Former Tobacco user Tobacco use type: Cigarette service: No Meds Allergies Allergy/AdvReac Type Severity Reaction Status Date / Time nevirapine [From VIRAMUNE] Allergy Unknown UNKNOWN Verified 09/15/23 10:42 penicillin V Allergy Unknown itchy Verified 09/15/23 10:42 Penicillins [PENICILLINS] Allergy Unknown N/A Verified 09/15/23 10:42 sulfamethoxazole Allergy Unknown UNKNOWN, Verified 09/15/23 10:42 [From BACTRIM] upset stomach trimethoprim [From BACTRIM] Allergy Unknown UNKNOWN Verified 09/15/23 10:42 Home Medications ?Medication ?Instructions ?Recorded ?Confirmed ?Last Taken ?Type albuterol sulfate 90 mcg/actuation 2 puff inhalation Q4H PRN 11/16/20 09/15/23 09/14/23 History aerosol inhaler Shortness Of Breath Or Wheezing mometasone 100 mcg/actuation HFA 1 puff inhalation BID 09/15/23 09/15/23 09/14/23 History aerosol inhaler (Asmanex HFA) Physical Exam 2 Vital Signs: Vital Signs: Last Vital Signs Temp 97.4 F 09/18/23 07:59 Pulse 55 09/18/23 07:59 Resp 15 09/18/23 07:59 BP 104/70 09/18/23 07:59 Pulse Ox 95 09/18/23 07:59 O2 Del Method Room Air 09/18/23 07:59 BMI result Body Mass Index 14.9 Const: General: cooperative HEENT: Other: thrush upper palate Head: Yes normal to inspection Face and sinus: Yes normal facial exam Mouth: Normal oral and palatal mucosa present Teeth and gingiva: dentition normal Eyes: General: appearance normal, both eyes and all related structures P upils: Equal, round and reactive pupils present Resp: Effort & Inspection: normal respiratory effort Cardio: Rate: regular rate Rhythm: regular rhythm GI: Palpation (GI): Soft to palpation and nontender : Other: right flank pain General: Yes no CVA tenderness Back/Spine/Pelvis: Back: no CVA tenderness Skin: General skin exam: no rashes or lesions noted Neuro: General: moves all extremities Cranial nerves: Yes Equal, round and reactive pupils present Extrem: General: Yes normal to inspection Psych: Appearance: grossly normal Results Labs 09/18/23 05:43 09/18/23 05:43 Labs: Short CBC 09/18/23 Range/Units 05:43 WBC 4.7 L (4.8-10.8) X10*3/uL Hgb 8.6 L D (12.0-16.0) g/dl Hct 23.8 L D (37.0-47.0) % Plt Count 168 (160-400) X10*3/uL BMP 09/18/23 05:43 Sodium 142 Potassium 5.0 Chloride 112 H Carbon Dioxide 26 BUN 16 Creatinine 1.23 Calcium 8.1 L Microbiology Microbiology Results: Microbiology 09/15/23 11:17 Blood - Venous Blood Culture - Preliminary No growth after 48 hours. 09/15/23 11:17 Blood - Venous Blood Culture - Preliminary No growth after 48 hours. 09/15/23 Unknown Urine clean catch - Urine vasques top Urine Culture - Final No growth. Assessment and Plan (1) Acute flank pain: Status: Acute (2) Pyelonephritis: Status: Acute (3) HIV infection: Status: Acute Plan possible pyelonephritis,culture negative she has been restarting Biktarvy for AIDS CD4 count undetectable Thrush Cefuroxime 10 d total Mepron until CD4 count over 200 since not tolerating Bactrim Diflucan 200 mg until resolved thrush
[2023-09-20 14:57] LABS: Parvovirus B19 IgG 1.34; Parvovirus B19 IgM <0.9
[2023-09-21 14:33] LABS: IgA 304 mg/dL (47-310); IgG 794 mg/dL (600-1640); IgM 59 mg/dL (50-300)
== END 2023-09-18 13:47 | disposition home or self-care (01) | DRG 463 ==
LOC: HO.ED 15:33 → HO.EDOVER 15:59 → HO.S3 16:33
PROVIDERS: Internal Medicine Medical Oncology; Physician Assistant; Admitting Provider Internal Medicine; Emergency Provider Emergency Medicine Emergency Medical Services; PCP Family Medicine; Referring Provider Family Medicine; Visit Provider Internal Medicine
DX: N10 Acute pyelonephritis (principal); E43 Unspecified severe protein-calorie malnutrition; D61.818 Other pancytopenia; N17.9 Acute kidney failure, unspecified; B37.0 Candidal stomatitis; B37.81 Candidal esophagitis; Z21 Asymptomatic human immunodeficiency virus [HIV] infection status; I12.9 Hypertensive chronic kidney disease with stage 1 through stage 4 chronic kidney disease, or unspecified chronic kidney disease; J44.9 Chronic obstructive pulmonary disease, unspecified; N18.30 Chronic kidney disease, stage 3 unspecified; Z68.1 Body mass index [BMI] 19.9 or less, adult; Z87.440 Personal history of urinary (tract) infections; Z87.891 Personal history of nicotine dependence; Z91.148 Patient's other noncompliance with medication regimen for other reason; Z79.899 Other long term (current) drug therapy
CPT/HCPCS: 36415; 74176; 80048; 80053; 80076; 81001; 81025; 82607; 82728; 82746; 82784; 83540; 83605; 83615; 83690; 83735; 84484; 85025; 85027; 85045; 86334; 86747; 86850; 86900; 86901; 86923; 87040; 87086; 94640; 99221; 99285; J0696; J1650; J3010; J7120; P9016; P9047

== ENCOUNTER → 2023-09-15 15:55 | Outpatient (BNV) | payer MEDICAID, SELFPAY | PROVIDERS: Admitting Provider Internal Medicine; Emergency Provider Emergency Medicine Emergency Medical Services; PCP Family Medicine; Visit Provider Internal Medicine | DX: D61.818 Other pancytopenia (principal) | CPT/HCPCS: 99223; 99232; 99239 ==

== ENCOUNTER → 2023-09-15 15:55 | Outpatient (BNV) | payer MEDICAID, SELFPAY | PROVIDERS: Admitting Provider Internal Medicine; Emergency Provider Emergency Medicine Emergency Medical Services; PCP Family Medicine; Visit Provider Internal Medicine Medical Oncology | DX: D61.818 Other pancytopenia (principal) | CPT/HCPCS: 99222 ==

== ENCOUNTER → 2023-09-15 15:55 | Outpatient (BNV) | payer MEDICAID, SELFPAY | PROVIDERS: Admitting Provider Internal Medicine; Emergency Provider Emergency Medicine Emergency Medical Services; PCP Family Medicine; Visit Provider Internal Medicine | DX: R10.9 Unspecified abdominal pain (principal); N12 Tubulo-interstitial nephritis, not specified as acute or chronic; B20 Human immunodeficiency virus [HIV] disease | CPT/HCPCS: 99222 ==

== ENCOUNTER 2023-09-24 09:22 | Outpatient (REF) | payer MEDICAID, SELFPAY ==
[2023-09-24 11:35] LABS: MANUAL DIFF FLAG NO
[2023-09-24 11:53] LABS: Basophils Absolute Auto 0.1 X10*3/uL (0.0-0.2); Basophils Percent Auto 0.8 % (0-2); Eosinophils Absolute Auto 0.8 X10*3/uL (0.0-0.4); Eosinophils Percent Auto 12.7 % (0-4); Hematocrit 23.1 % (37.0-47.0); Hemoglobin 8.1 g/dl (12.0-16.0); Imm Gran Abs Auto 0.02 X10*3/uL (0.00-0.03); Imm Gran Pct Auto 0.3 % (0.0-0.4); Lymphocytes Absolute Auto 1.6 X10*3/uL (1.2-4.9); Lymphocytes Percent Auto 25.1 % (20-40); Mean Corpuscular HGB Conc 35.1 g/dl (31.0-35.0); Mean Corpuscular Hemoglobin 36.7 pg (27.0-33.0); Mean Corpuscular Volume 104.5 fL (80.0-98.0); Mean Platelet Volume 10.8 fL (9.4-12.3); Monocytes Percent Auto 15.2 % (2-11); Neutrophils Absolute Auto 2.9 x10*3/uL (2.0-8.3); Neutrophils Percent Auto 45.9 % (45-73); Platelet Count 260 X10*3/uL (160-400); Red Blood Count 2.21 X10*6/uL (4.20-5.50); White Blood Count 6.4 X10*3/uL (4.8-10.8)
[2023-09-24 12:27] LABS: Alanine Aminotransferase 20 U/L (0-31); Albumin Level 3.5 g/dL (3.5-5.0); Alkaline Phosphatase 47 U/L (39-117); Anion Gap 7 (12-20); Aspartate Amino Transferase 26 U/L (5-31); Bilirubin Total 0.2 mg/dL (0.0-1.0); Blood Urea Nitrogen 34 mg/dL (9-16); Calcium 8.7 mg/dL (8.4-10.2); Carbon Dioxide 34 mmol/L (22-29); Chloride 108 mmol/L (96-108); Estimated Glomerular Filt Rate 42; Glucose Random 85 mg/dL (60-115); Potassium 4.5 mmol/L (3.3-5.1); Sodium 144 mmol/L (135-145); Total Protein 6.4 g/dL (6.5-8.0)
== END 2023-09-24 09:23 | disposition home or self-care (01) ==
LOC: HO.HHCL 09:22
PROVIDERS: Visit Provider Internal Medicine
DX: N17.9 Acute kidney failure, unspecified (principal); D61.818 Other pancytopenia
CPT/HCPCS: 36415; 80053; 85025

== ENCOUNTER 2023-09-27 09:23 | Outpatient (REF) | payer MEDICAID, SELFPAY ==
[2023-09-27 09:32] LABS: MANUAL DIFF FLAG NO
[2023-09-27 10:08] LABS: Basophils Absolute Auto 0.1 X10*3/uL (0.0-0.2); Basophils Percent Auto 0.7 % (0-2); Eosinophils Absolute Auto 0.8 X10*3/uL (0.0-0.4); Eosinophils Percent Auto 11.8 % (0-4); Hematocrit 25.7 % (37.0-47.0); Hemoglobin 8.5 g/dl (12.0-16.0); Imm Gran Abs Auto 0.01 X10*3/uL (0.00-0.03); Imm Gran Pct Auto 0.1 % (0.0-0.4); Lymphocytes Absolute Auto 1.2 X10*3/uL (1.2-4.9); Lymphocytes Percent Auto 17.5 % (20-40); Mean Corpuscular HGB Conc 33.1 g/dl (31.0-35.0); Mean Corpuscular Hemoglobin 34.4 pg (27.0-33.0); Mean Platelet Volume 10.4 fL (9.4-12.3); Monocytes Absolute Auto 1.2 X10*3/uL (0.1-1.2); Monocytes Percent Auto 16.2 % (2-11); Neutrophils Absolute Auto 3.8 x10*3/uL (2.0-8.3); Neutrophils Percent Auto 53.7 % (45-73); Platelet Count 255 X10*3/uL (160-400); Red Blood Count 2.47 X10*6/uL (4.20-5.50); Red Cell Distribution Width 20.4 % (11.0-16.0); White Blood Count 7.1 X10*3/uL (4.8-10.8)
[2023-09-27 11:09] LABS: Alanine Aminotransferase 32 U/L (0-31); Albumin Level 3.7 g/dL (3.5-5.0); Alkaline Phosphatase 57 U/L (39-117); Anion Gap 8 (12-20); Aspartate Amino Transferase 30 U/L (5-31); Bilirubin Total 0.3 mg/dL (0.0-1.0); Blood Urea Nitrogen 28 mg/dL (9-16); Calcium 8.8 mg/dL (8.4-10.2); Carbon Dioxide 32 mmol/L (22-29); Chloride 110 mmol/L (96-108); Estimated Glomerular Filt Rate 42; Glucose Random 92 mg/dL (60-115); Potassium 4.2 mmol/L (3.3-5.1); Sodium 146 mmol/L (135-145); Total Protein 6.8 g/dL (6.5-8.0)
== END 2023-09-27 09:24 | disposition home or self-care (01) ==
LOC: HO.LAB 09:23
PROVIDERS: PCP Internal Medicine; Visit Provider Internal Medicine
DX: D61.818 Other pancytopenia (principal); N17.9 Acute kidney failure, unspecified
CPT/HCPCS: 36415; 80053; 85025

== ENCOUNTER 2023-10-09 09:39 | Outpatient (REF) | payer MEDICAID, SELFPAY ==
--- NOTE | ~2023-10-09 | MM_ITS ---
EXAMINATION: BONE DENSITOMETRY CLINICAL INDICATION: Vitamin D deficiency. Renal osteodystrophy. COMPARISON: This is the patient's baseline examination. TECHNIQUE: Using a [employer] DXA System (software version: 13.1) manufactured by [employer], dual-energy x-ray absorptiometry was performed of the lumbar spine and left hip. The images are of good technical quality. Summary results are attached. FINDINGS: LEFT FEMUR, NECK: BMD 0.909 g/cm2, Z-score 0.9, T-score -0.9, normal. LEFT FEMUR, TOTAL: BMD 0.843 g/cm2, Z-score 0.3, T-score -1.3, osteopenia. AP SPINE L1-L4: BMD 1.007 g/cm2, Z-score 0.7, T-score -1.4, osteopenia. IDENTIFIED RISK FACTORS: Low body weight, current smoker, kidney disease, menopause. HISTORY OF FRACTURE: None listed. MEDICATIONS: None listed. MM/XR DEXA axial skeleton IMPRESSION: 1. DIAGNOSIS: Osteopenia based on the lowest T-score value of -1.4 in the lumbar spine applying World Health Organization criteria. 2. 10-YEAR FRACTURE RISK PREDICTION, FRAX: Major osteoporotic fracture (clinical spine, forearm, hip or shoulder) 2.8%. Hip fracture 0.3%. 3. Treatment Recommendations: NOF guidelines recommend consideration for treatment in postmenopausal women and men age 50 and older presenting with the following: -A hip or vertebral (clinical or morphometric) fracture. -T-score less than or equal to -2.5 at the femoral neck or spine after appropriate evaluation to exclude secondary causes. -Low bone mass at the hip or spine and a 10-year fracture probability by FRAX of greater than or equal to 3% for hip fracture or greater than or equal to 20% for major osteoporotic fracture based on the [place] adapted WHO algorithm. 4. Other Recommendations: All treatment decisions require clinical judgment and consideration of individual patient factors, including patient preferences, comorbidities, previous drug use, risk factors not captured in the FRAX model (e.g. frailty, falls, vitamin D deficiency, increased bone turnover, interval significant decline in bone density) and possible under or overestimation of fracture risk by FRAX. Additional medical evaluation for secondary cause of low bone mineral density may be appropriate. FUTURE SCAN RECOMMENDATION: People with diagnosed cases of osteoporosis or at high risk for fracture should have regular bone mineral density tests. For patients eligible for Medicare, routine testing is allowed once every 2 years. The testing frequency can be increased to one year for patients who have rapidly progressing disease, those who are receiving or discontinuing medical therapy to restore bone mass, or have additional risk factors.
--- NOTE | ~2023-10-09 | MM_ITS ---
EXAMINATION: MM SCREENING DIGITAL BREAST TOMOSYNTHESIS, BILATERAL CLINICAL INFORMATION: Screening. Asymptomatic. COMPARISON: Mammography: This study is compared with prior exams dating back to 2018. TECHNIQUE: Digital breast tomosynthesis is performed in both the craniocaudal and mediolateral oblique views along with computer-aided detection (CAD). Synthesized 2D images are generated from the tomosynthesis. FINDINGS: There are scattered areas of fibroglandular density (ACR BI-RADS breast composition Category b). There are no significant masses, abnormal calcifications, or other abnormalities. There is coarse calcification involving the superior aspect of the right breast. This is benign. MM/MM tomosynthesis screening BI IMPRESSION: No mammographic evidence of malignancy. ASSESSMENT: BI-RADS BI-RADS 2 - Benign Findings RECOMMENDATION: Routine annual mammography screening. 1 year F/U This examination should not preclude the clinical evaluation of a suspicious palpable abnormality. This patient's information was entered into a reminder system with a target due date for their next mammogram.
== END 2023-10-09 09:40 | disposition home or self-care (01) ==
LOC: HO.MAMMO 09:39
PROVIDERS: PCP Family Medicine; Visit Provider Family Medicine
DX: Z12.31 Encounter for screening mammogram for malignant neoplasm of breast (principal); Z13.820 Encounter for screening for osteoporosis; Z78.0 Asymptomatic menopausal state; E21.3 Hyperparathyroidism, unspecified; E55.9 Vitamin D deficiency, unspecified
CPT/HCPCS: 77063; 77067; 77080

== ENCOUNTER → 2023-10-09 10:00 | Outpatient (BNV) | payer MEDICAID, SELFPAY | PROVIDERS: PCP Family Medicine; Visit Provider Radiology Diagnostic Radiology | DX: Z12.31 Encounter for screening mammogram for malignant neoplasm of breast (principal) | CPT/HCPCS: 77063; 77067 ==

== ENCOUNTER 2023-10-22 09:36 | Outpatient (REF) | payer MEDICAID, SELFPAY ==
--- NOTE | ~2023-10-22 | XR_ITS ---
EXAMINATION: XR KNEE, RIGHT CLINICAL INFORMATION: Chronic pain of right knee COMPARISON: X-rays of the right knee April 2021 TECHNIQUE: Four views of the right knee. FINDINGS: No fracture or joint effusion. Alignment is anatomic. Joint spaces are maintained. No abnormal soft tissue calcification. XR/XR knee RT 3V IMPRESSION: Normal right knee.
== END 2023-10-22 09:37 | disposition home or self-care (01) ==
LOC: HO.HHCX 09:36
PROVIDERS: Visit Provider Family Medicine
DX: M25.561 Pain in right knee (principal); G89.29 Other chronic pain
CPT/HCPCS: 73562

== ENCOUNTER 2023-10-24 09:13 | Outpatient (REF) | payer MEDICAID, SELFPAY ==
[2023-10-24 11:14] LABS: MANUAL DIFF FLAG NO
[2023-10-24 11:24] LABS: Basophils Percent Auto 0.8 % (0-2); Eosinophils Absolute Auto 0.5 X10*3/uL (0.0-0.4); Eosinophils Percent Auto 10.8 % (0-4); Hematocrit 33.3 % (37.0-47.0); Hemoglobin 10.9 g/dl (12.0-16.0); Imm Gran Abs Auto 0.05 X10*3/uL (0.00-0.03); Lymphocytes Absolute Auto 1.9 X10*3/uL (1.2-4.9); Lymphocytes Percent Auto 38.3 % (20-40); Mean Corpuscular HGB Conc 32.7 g/dl (31.0-35.0); Mean Corpuscular Volume 103.7 fL (80.0-98.0); Mean Platelet Volume 10.3 fL (9.4-12.3); Monocytes Absolute Auto 0.7 X10*3/uL (0.1-1.2); Monocytes Percent Auto 13.7 % (2-11); Neutrophils Absolute Auto 1.7 x10*3/uL (2.0-8.3); Neutrophils Percent Auto 35.4 % (45-73); Platelet Count 235 X10*3/uL (160-400); Red Blood Count 3.21 X10*6/uL (4.20-5.50); Red Cell Distribution Width 17.9 % (11.0-16.0); White Blood Count 4.8 X10*3/uL (4.8-10.8)
[2023-10-24 11:29] LABS: Estimated Average Glucose 97 mg/dL
[2023-10-24 11:53] LABS: Alanine Aminotransferase 13 U/L (0-31); Alkaline Phosphatase 70 U/L (39-117); Anion Gap 13 (12-20); Aspartate Amino Transferase 20 U/L (5-31); Bilirubin Total 0.4 mg/dL (0.0-1.0); Blood Urea Nitrogen 26 mg/dL (9-16); Calcium 9.1 mg/dL (8.4-10.2); Carbon Dioxide 25 mmol/L (22-29); Chloride 109 mmol/L (96-108); Cholesterol 219 mg/dL (<200); Estimated Glomerular Filt Rate 39; Glucose Random 85 mg/dL (60-115); HDL Cholesterol 54 mg/dL (>40); Iron 80 mcg/dL (30-160); LDL Cholesterol Calculated 139 mg/dL (<100); Percent Iron Saturation 32 % (15-50); Potassium 4.7 mmol/L (3.3-5.1); Sodium 142 mmol/L (135-145); Total Iron Binding Capacity 248 mcg/dL (228-428); Total Protein 7.7 g/dL (6.5-8.0); Triglycerides 130 mg/dL (<150); Unsaturated Iron Binding 168 ug/dL; Uric Acid 8.8 mg/dL (2.4-5.7)
[2023-10-24 11:56] LABS: Ferritin 458 ng/mL (10-250); TSH reflex Free T4 0.69 uIU/mL (0.32-4.0)
[2023-10-24 12:09] LABS: Reflex LDLD? No; Vitamin B12 1523 pg/mL (200-900)
== END 2023-10-24 09:14 | disposition home or self-care (01) ==
LOC: HO.HHCL 09:13
PROVIDERS: Visit Provider Family Medicine
DX: D64.9 Anemia, unspecified (principal); B20 Human immunodeficiency virus [HIV] disease; M10.9 Gout, unspecified
CPT/HCPCS: 36415; 80053; 80061; 82607; 82728; 82746; 83036; 83540; 84443; 84550; 85025

== ENCOUNTER → 2023-10-26 09:01 | Outpatient (BNV) | payer MEDICAID, SELFPAY | PROVIDERS: PCP Family Medicine; Visit Provider Internal Medicine Medical Oncology | DX: D61.818 Other pancytopenia (principal) | CPT/HCPCS: 99213 ==

== ENCOUNTER 2023-12-06 18:48 | Inpatient (IN) | payer MEDICAID, SELFPAY ==
--- NOTE | 2023-12-06 | ECG_ITS ---
Test Reason : WEAKNESS Blood Pressure : / mmHG Vent. Rate : 055 BPM Atrial Rate : 055 BPM P-R Int : 142 ms QRS Dur : 082 ms QT Int : 438 ms P-R-T Axes : 075 032 057 degrees QTc Int : 419 ms Sinus bradycardia Otherwise normal ECG When compared with ECG of 31-AUG-2023 17:22, No significant change was found Referred By: Generic ED Physician Electronically Signed By:SUNDAR CABEZAS
--- NOTE | ~2023-12-06 | MR_ITS ---
EXAMINATION: MR BRAIN WITHOUT CONTRAST CLINICAL INFORMATION: Cerebrovascular accident. COMPARISON: CTA head and neck from 12/16/2023. TECHNIQUE: Attempt was made to perform MRI of the brain was obtained using routine sequences without contrast. Multiplanar nondiagnostic localizer imaging was obtained. Patient declined further imaging at this time. MR/MR head/brain wo con FINDINGS/IMPRESSION: Nondiagnostic localizer imaging notable for a region of cerebral edema lateral aspect of right frontotemporal lobes correlating with findings on recent CTA. In the appropriate clinical setting, this appearance remains suggestive of sequela of an acute to subacute infarct. No additional overtly demonstrated mass effect. The ventricles and sulcal spaces are proportional without evidence of obstructive hydrocephalus.
--- NOTE | ~2023-12-06 | CT_ITS ---
EXAMINATION: CT HEAD WITHOUT CONTRAST CT ANGIOGRAM HEAD CT ANGIOGRAM NECK CLINICAL INFORMATION: Reason for Exam LUE weakness x1 week, slurred speech, facial droop COMPARISON: None. TECHNIQUE: Initial noncontrast harbor department manager imaging of the head and neck was performed. Noncontrast head CT was also performed. Test bolus sequences followed by intravenous administration 80 mL of Omnipaque 350. Helical imaging was performed in the axial plane from the aortic arch to the skull vertex. Delayed postcontrast imaging of the head was also performed. The data was processed at the sand technologist's workstation for generation of MIP sequences. Angled MIPs and volume rendered reformatted images were also generated at an offline 3D workstation. Stenoses are assessed in accordance with Lu et al. Quantification of Carotid Stenosis on CT Angiography. AJR 2006. 27(1):13-19. [address] CT examination was performed using dose optimization techniques as appropriate, variously including the following: *Automated exposure control *Adjustment of mA and/or kV according to patient size (this includes techniques or standardized protocols for targeted exams where dose is matched to indication/reason for exam; i.e. extremities or head) *Use of iterative reconstruction technique DLP: 2020 mGy-cm FINDINGS: CT HEAD: There is hypodensity with loss of vasques-white differentiation in the posterior right frontal lobe, right parietal lobe and right parietal occipital region. The ventricles and sulci are appropriate in size and configuration for the patient's stated age. Periventricular and subcortical white matter hypodensity is nonspecific but likely represents chronic microvascular ischemic change. No depressed calvarial fracture. Partially opacified right posterior ethmoid air cell. The mastoid air cells are well-aerated. CTA HEAD: Suboptimal evaluation secondary to intracranial venous contamination. Anterior circulation: Right internal carotid artery: No hemodynamically significant stenosis. Right middle cerebral artery: Occlusion of the right M2 superior division in its mid aspect. Right anterior cerebral artery: No hemodynamically significant stenosis. Left internal carotid artery: No hemodynamically significant stenosis. Left middle cerebral artery: No hemodynamically significant stenosis. Left anterior cerebral artery: No hemodynamically significant stenosis. Posterior circulation: Right vertebral artery: No hemodynamically significant stenosis. Left vertebral artery: No hemodynamically significant stenosis. Dominant. Patent. Basilar artery: No hemodynamically significant stenosis. Right posterior cerebral artery: No hemodynamically significant stenosis. Left posterior cerebral artery: No hemodynamically significant stenosis. No high flow vascular malformation or significant aneurysmal dilatation is visualized. Filling defect along the junction of the right sigmoid sinus and jugular vein at the right jugular bulb. CTA NECK: Aortic arch: Normal anatomy. Right common carotid artery: No hemodynamically significant stenosis. Right proximal internal carotid artery: No hemodynamically significant stenosis. Right mid/distal internal carotid artery: Sub-occlusive filling defect. Left common carotid artery: No hemodynamically significant stenosis. Left proximal internal carotid artery: No hemodynamically significant stenosis. Left mid/distal internal carotid artery: No hemodynamically significant stenosis. Right vertebral artery: No hemodynamically significant stenosis. Left vertebral artery: No hemodynamically significant stenosis. Dominant. Patent. CT NECK: Clustered nodularity in the inferior aspect of the right upper lobe with additional scattered nodules in the partially visualized right lung field. Additional scattered nodularity in the left upper lobe with more focal consolidation with air bronchograms measuring up to 2.2 cm in the left upper lobe. Asymmetric right apical nodule measuring up to 1 cm. Emphysematous changes in bilateral lung knox. Air-filled lesion in the right tracheoesophageal groove measuring up to 2 cm, likely a diverticulum. Hypodense left thyroid nodule measuring up to 9 mm for which no imaging follow-up is recommended per size criteria. The patient is edentulous. Nonspecific hyperemia of the adenoid tonsils. Degenerative changes of cervical spine. CT/CT angio head neck IMPRESSION: CT HEAD: Hypodensity with loss of vasques-white differentiation in the posterior right frontal lobe, right parietal lobe, and right parietal-occipital region. Findings suspicious for acute/subacute infarction. Correlation with MRI is recommended. CTA NECK: There is subocclusive thrombus in the mid right cervical internal carotid artery. Nodularity in the bilateral lung knox, as described above, may be infectious/inflammatory but is indeterminate. Correlation with dedicated chest CT is recommended for further evaluation. Additionally, attention on short-term interval follow-up is recommended to ensure appropriate resolution. CTA HEAD: The right M2 superior division is occluded in its mid aspect. Subocclusive filling defect at the right jugular bulb suspicious for nonocclusive venous thrombus. Attention on follow-up is recommended. This critical result was discussed with at 11:32 on 12/06/23 and it was ascertained that the content and urgency of the report was understood at the time of direct communication.
[2023-12-06 19:01] VITALS: BP 113/69; BP 118/72; PULSE 55; PULSE 82; RESP 16; TEMP 36.9; O2SAT 96; O2SAT 98; BMI 16.7
--- NOTE | 2023-12-06 19:12 | ED.GENADULT ---
HPI - General Adult General Chief complaint: General Medical Stated complaint: L HAND NUMB/ TINGLING X 1 WEEK Time Seen by Provider: 12/06/23 19:12 Source: patient and EMS Mode of arrival: EMS Limitations: no limitations History of Present Illness ED Provider: Chayo Payan PA-C HPI narrative: 58 yo female with history of HIV recently restarted on HAART, CKD III, asthma, severe protein calorie malnutrition, asthma/COPD recent admission here for pyelonephritis who presents to the ER from home for evaluation of worsening left upper extremity weakness that started acutely last . Patient reports that she suddenly had development of left arm weakness and some tingling that started 1 week ago. It has gotten worse and she can can now barely move her left wrist and she can not move her fingers at all. She is right hand dominant. She states she also developed some slurred speech and difficulty speaking 2 days ago. She denies any vision changes or headaches. No lower extremity weakness or difficulty walking. No difficulty swallowing. No chest pain or shortness of breath. She states symptoms started shortly after she got croup from her granddaughter and was coughing a lot. MD complaint: Left upper extremity weakness, slurred speech Onset (ago): week(s) (1) Location: face, mouth, left and upper extremity Radiation: distal Severity: severe Quality: other (Tingling) Relieving factors: none Exacerbating factors: none Associated symptoms: weakness Treatments prior to arrival: none Related Data Home Medications ?Medication ?Instructions ?Recorded ?Confirmed albuterol sulfate 90 mcg/actuation 2 puff inhalation Q4H PRN 11/16/20 12/06/23 aerosol inhaler Shortness Of Breath Or Wheezing cholecalciferol (vitamin D3) 25 25 mcg PO DAILY 12/06/23 12/06/23 mcg (1,000 unit) tablet clobetasol 0.05 % topical ointment 1 appl topical DAILY PRN eczema 12/06/23 12/06/23 fluticasone furoate 100 1 inh inhalation DAILY 12/06/23 12/06/23 mcg/actuation blister powder for inhalation (Arnuity Ellipta) Previous Rx's ?Medication ?Instructions ?Recorded ondansetron 4 mg disintegrating 4 mg PO Q8H PRN nausea and 06/27/22 tablet vomiting #10 tabs bictegravir 50 mg-emtricitabine 1 tab PO DAILY 30 days #30 tabs 09/05/23 200 mg-tenofovir alafenam 25 mg tablet (Biktarvy) fluconazole 100 mg tablet 200 mg (2 x 100 mg) PO DAILY #180 09/18/23 tabs Allergies Allergy/AdvReac Type Severity Reaction Status Date / Time nevirapine [From VIRAMUNE] Allergy Unknown UNKNOWN Verified 12/06/23 19:02 penicillin V Allergy Unknown itchy Verified 12/06/23 19:02 Penicillins [PENICILLINS] Allergy Unknown N/A Verified 12/06/23 19:02 sulfamethoxazole Allergy Unknown UNKNOWN, Verified 12/06/23 19:02 [From BACTRIM] upset stomach trimethoprim [From BACTRIM] Allergy Unknown UNKNOWN Verified 12/06/23 19:02 Review of Systems Review of Systems: Yes all other systems are reviewed and are negative Neurologic: Reports Abnormal speech present [facility] Past Medical History Medical History Shingles Asthma CKD (chronic kidney disease) HIV infection Surgical History Hx of esophagogastroduodenoscopy Family History Family History (Updated 10/26/23 @ 09:43 by Hyun Toussaint) Maternal Aunt Breast cancer Paternal Grandmother Stomach cancer Social History Social History (Updated 10/26/23 @ 09:41 by Hyun Toussaint) Household Members: Family Housing: Apartment Do you presently have visiting nurse or other home services: No Patient Tobacco Use Status: Former Tobacco user Tobacco use type: Cigarette Smoked in Last 30 Days: Yes Use of substances other than those prescribed or required for medical reasons: No Advance Directives: No Advance Directives Information Provided: No Do you have a plan to hurt others: No Plan Patient : No service: No Current occupational exposures/hazards: No Physical Exam ED Vital Signs: Vital Signs - 24 hr 12/06/23 19:01 12/06/23 21:33 12/07/23 00:40 Temperature 98.5 F 98.0 F Pulse Rate 55 57 55 Respiratory Rate 16 16 14 Blood Pressure 113/69 121/50 L 99/56 L Pulse Oximetry 96 95 95 Oxygen Delivery Method Room Air Room Air Room Air BMI result Body Mass Index 16.7 Const General: alert, awake and ill appearing chronically Nutritional Appearance: cachectic and malnourished Orientation/consciousness: patient oriented x3 Limitations: no limitations HENMT Head: Yes normal to inspection, Yes normocephalic and Yes atraumatic Ears: hearing grossly normal bilaterally General nose exam: Normal external nose present Face and sinus: No face symmetric and Yes Flattened naso-labial fold present Eyes General: appearance normal, both eyes and all related structures Visual Chappell: normal visual chappell by confrontation Neck Neck: Yes normal visual inspection Chest Chest palpation & inspection: normal inspection of the chest and normal palpation of entire chest wall Resp Effort & Inspection: normal respiratory effort and able to speak in complete sentences Auscultation: clear to auscultation bilaterally Cardio Rate: regular rate Rhythm: regular rhythm Heart sounds: S1 normal heart sound present and S2 normal heart sound present GI Inspection: Yes normal to inspection Palpation (GI): Soft to palpation, nontender and no guarding Auscultation: normal bowel sounds Rectal Exam - Female: deferred Skin Lesions: no lesions Rashes: no rashes Neuro General: patient oriented x3 and Unable to assess gait Cognition (Neuro): normal cognition Speech: Abnormal speech present slurred (mild) Gait exam (Neuro): Unable to assess gait Motor exam (neuro): Abnormal motor strength present left distal upper extremity flexion 1 / 5 and extension 1 / 5 NIH Stroke Scale Internal: Initial- Upon Arrival Time: 19:24 Level of Consciousness: Alert Level of Consciousness Questions: Answers both questions correctly Level of Consciousness Commands: Performs both tasks correctly Best Gaze: Normal Visual: No visual loss Facial Palsy: Partial paralysis Motor Arm (Right): No drift Motor Arm (Left): Some effort against gravity Motor Leg (Right): No drift Motor Leg (Left): No drift Limb Ataxia: Present in one limb Sensory: Mild to moderate sensory loss Best Language: No aphasia Dysarthia: Mild to moderate dysarthria Extinction and Inattention: No abnormality Score: 7 Medications Administered Discontinued Medications Generic Name Dose Route Start Last Admin Trade Name Freq PRN Reason Stop Dose Admin Iohexol 80 ml 12/06/23 21:30 12/06/23 21:31 Iohexol 350 Mg/Ml 100 Ml Infus..Btl IV 12/06/23 21:31 80 ml ONCE ONE Administration Medical Decision Making Medical Decision Making MDM Narrative: 58 yo female with history of HIV recently restarted on HAART, CKD III, asthma, severe protein calorie malnutrition, asthma/COPD recent admission here for pyelonephritis who presents to the ER from home for evaluation of worsening left upper extremity weakness that started acutely last . Symptoms have been worsening were she can now no longer move her left wrist or fingers. She also reports some new slurred speech. Exam is concerning for acute stroke. She is out of thrombolytic treatment window. CTA head/neck ordered showing an acute vs subacute M2 stroke and subocclusive thrombus in the right cervical internal artery. Case was d/w Dr. Groves who recommended discussion w/ neurointerventionalist. Dr. Reyes at [facility] does not recommend any acute intervention at this time. Will admit to the hospital here for further evaluation and treatment. patient updated on dx and need for admission. of note she was also found to have a UTI, reporting some difficulty urinating. No tachycardia or fevers. Started on oral antibiotics. Will admit to the hospital Differential Diagnosis Differential Diagnoses: The differential diagnosis associated with the presentation includes Subacute CVA, acute CVA, dissection, ICH, encephalitis, brain tumor Admission/Observation Consideration of admission/observation: Escalation of care including admission/observation considered Consult Healthcare Provider Management of the patient was discussed with: Rehab Specialist Dr. Groves and Dr. Reyes Lab Data MDM Lab Attestation statement: I reviewed the patient's lab results. Normal renal function, no anemia or thrombocytopenia 12/06/23 19:26 12/06/23 20:35 Labs: Lab Results 12/06/23 12/06/23 12/06/23 Range/Units 19:26 20:35 21:34 WBC 8.4 (4.8-10.8) X10*3/uL RBC 3.69 L (4.20-5.50) X10*6/uL Hgb 12.8 (12.0-16.0) g/dl Hct 37.2 (37.0-47.0) % MCV 100.8 H (80.0-98.0) fL MCH 34.7 H (27.0-33.0) pg MCHC 34.4 (31.0-35.0) g/dl RDW 12.0 (11.0-16.0) % Plt Count 363 D (160-400) X10*3/uL MPV 9.7 (9.4-12.3) fL Immature Gran % (Auto) 0.4 (0.0-0.4) % Neut % (Auto) 56.8 (45-73) % Lymph % (Auto) 26.1 (20-40) % [place] % (Auto) 11.8 H (2-11) % Eos % (Auto) 4.4 H (0-4) % Baso % (Auto) 0.5 (0-2) % Lymph # (Auto) 2.2 (1.2-4.9) X10*3/uL [place] # (Auto) 1.0 (0.1-1.2) X10*3/uL Eos # (Auto) 0.4 (0.0-0.4) X10*3/uL Baso # (Auto) 0.0 (0.0-0.2) X10*3/uL Abs Immat Gran (auto) 0.03 (0.00-0.03) X10*3/uL Absolute Neuts (auto) 4.8 (2.0-8.3) x10*3/uL Absolute Nucleated RBC 0.000 (0.0-0.012) X10*3/uL Nucleated RBC % (auto) 0.0 (0.0-0.2) /100WBC PT 12.7 (11.1-13.3) SEC INR 1.0 (0.9-1.1) APTT 32.5 (26.0-36.8) SEC Sodium 143 (135-145) mmol/L Potassium 4.4 (3.3-5.1) mmol/L Chloride 109 H (96-108) mmol/L Carbon Dioxide 25 (22-29) mmol/L Anion Gap 13 (12-20) BUN 21 H (9-16) mg/dL Creatinine 1.10 (0.5-1.4) mg/dL Estim Creat Clear Calc 32.6 Estimated GFR 51 Random Glucose 88 (60-115) mg/dL Calcium 9.8 D (8.4-10.2) mg/dL Total Bilirubin 0.2 (0.0-1.0) mg/dL AST 18 (5-31) U/L ALT 7 (0-31) U/L Alkaline Phosphatase 64 (39-117) U/L Troponin I High Sens < 2.7 (<3.5-17.0) ng/L Total Protein 8.4 H (6.5-8.0) g/dL Albumin 3.8 (3.5-5.0) g/dL Urine Color Yellow Urine Appearance Turbid Urine pH 5.5 (5.0-9.0) Ur Specific [place] 1.015 (1.005-1.025) Urine Protein 100 (2+) H (Neg-Trace) mg/dL Urine Glucose (UA) Negative (Negative) mg/dL Urine Ketones Negative (Negative) mg/dL Urine Blood Small (1+) H (Negative) Urine Nitrite Positive H (Negative) Ur Leukocyte Esterase Large (3+) H (Negative) Urine RBC 0-2 (0-2) /HPF Urine WBC >50 H (0-5) /HPF Ur Squamous Epith Cells 3-5 (0-2) /HPF Urine Bacteria 4+ (None Seen) Hyaline Casts 0-2 (0-2) /LPF Independent Interpretation I performed an independent interpretation of an: CT Scan Interpretation: Acute changes consistent with stroke as stated in the radiology read Radiology Impression Discussion of test interpretation with radiology: I have reviewed the radiologist's reading. Radiologist Impression: EXAMINATION: CT HEAD WITHOUT CONTRAST CT ANGIOGRAM HEAD CT ANGIOGRAM NECK CLINICAL INFORMATION: Reason for Exam LUE weakness x1 week, slurred speech, facial droop COMPARISON: None. TECHNIQUE: Initial noncontrast employee relations assistant imaging of the head and neck was performed. Noncontrast head CT was also performed. Test bolus sequences followed by intravenous administration 80 mL of Omnipaque 350. Helical imaging was performed in the axial plane from the aortic arch to the skull vertex. Delayed postcontrast imaging of the head was also performed. The data was processed at the computer technologist's workstation for generation of MIP sequences. Angled MIPs and volume rendered reformatted images were also generated at an offline 3D workstation. Stenoses are assessed in accordance with Lu et al. Quantification of Carotid Stenosis on CT Angiography. AJR 2006. 27(1):13-19. [address] CT examination was performed using dose optimization techniques as appropriate, variously including the following: *Automated exposure control *Adjustment of mA and/or kV according to patient size (this includes techniques or standardized protocols for targeted exams where dose is matched to indication/reason for exam; i.e. extremities or head) *Use of iterative reconstruction technique DLP: 2020 mGy-cm FINDINGS: CT HEAD: There is hypodensity with loss of vasques-white differentiation in the posterior right frontal lobe, right parietal lobe and right parietal occipital region. The ventricles and sulci are appropriate in size and configuration for the patient's stated age. Periventricular and subcortical white matter hypodensity is nonspecific but likely represents chronic microvascular ischemic change. No depressed calvarial fracture. Partially opacified right posterior ethmoid air cell. The mastoid air cells are well-aerated. CTA HEAD: Suboptimal evaluation secondary to intracranial venous contamination. Anterior circulation: Right internal carotid artery: No hemodynamically significant stenosis. Right middle cerebral artery: Occlusion of the right M2 superior division in its mid aspect. Right anterior cerebral artery: No hemodynamically significant stenosis. Left internal carotid artery: No hemodynamically significant stenosis. Left middle cerebral artery: No hemodynamically significant stenosis. Left anterior cerebral artery: No hemodynamically significant stenosis. Posterior circulation: Right vertebral artery: No hemodynamically significant stenosis. Left vertebral artery: No hemodynamically significant stenosis. Dominant. Patent. Basilar artery: No hemodynamically significant stenosis. Right posterior cerebral artery: No hemodynamically significant stenosis. Left posterior cerebral artery: No hemodynamically significant stenosis. No high flow vascular malformation or significant aneurysmal dilatation is visualized. Filling defect along the junction of the right sigmoid sinus and jugular vein at the right jugular bulb. CTA NECK: Aortic arch: Normal anatomy. Right common carotid artery: No hemodynamically significant stenosis. Right proximal internal carotid artery: No hemodynamically significant stenosis. Right mid/distal internal carotid artery: Sub-occlusive filling defect. Left common carotid artery: No hemodynamically significant stenosis. Left proximal internal carotid artery: No hemodynamically significant stenosis. Left mid/distal internal carotid artery: No hemodynamically significant stenosis. Right vertebral artery: No hemodynamically significant stenosis. Left vertebral artery: No hemodynamically significant stenosis. Dominant. Patent. CT NECK: Clustered nodularity in the inferior aspect of the right upper lobe with additional scattered nodules in the partially visualized right lung field. Additional scattered nodularity in the left upper lobe with more focal consolidation with air bronchograms measuring up to 2.2 cm in the left upper lobe. Asymmetric right apical nodule measuring up to 1 cm. Emphysematous changes in bilateral lung chappell. Air-filled lesion in the right tracheoesophageal groove measuring up to 2 cm, likely a diverticulum. Hypodense left thyroid nodule measuring up to 9 mm for which no imaging follow-up is recommended per size criteria. The patient is edentulous. Nonspecific hyperemia of the adenoid tonsils. Degenerative changes of cervical spine. CT/CT angio head neck IMPRESSION: CT HEAD: Hypodensity with loss of vasques-white differentiation in the posterior right frontal lobe, right parietal lobe, and right parietal-occipital region. Findings suspicious for acute/subacute infarction. Correlation with MRI is recommended. CTA NECK: There is subocclusive thrombus in the mid right cervical internal carotid artery. Nodularity in the bilateral lung chappell, as described above, may be infectious/inflammatory but is indeterminate. Correlation with dedicated chest CT is recommended for further evaluation. Additionally, attention on short-term interval follow-up is recommended to ensure appropriate resolution. CTA HEAD: The right M2 superior division is occluded in its mid aspect. Subocclusive filling defect at the right jugular bulb suspicious for nonocclusive venous thrombus. Attention on follow-up is recommended. Independent Historian Clinical information obtained from an independent historian. History obtained from or confirmed by: EMS External Record Review External record reviewed: Outpatient record, Prior outpatient labs and Prior outpatient radiology Prescription Management I considered prescription management with: Other (Statin, antiplatelet) Chronic Conditions Patient?s care impacted by: Other (HIV) Critical Care Time Critical Care Time Critical Care Time: Yes Total Critical Care Time: 59 Attestation: I have personally provided critical care time exclusive of time spent on separately billable procedures. Time includes review of lab data, radiology results, discussion with consultants, and monitoring for potential decompensation. Intervention performed as documented. Discharge Plan Discharge Clinical Impression: CVA (cerebral vascular accident) Patient Disposition: Admitted As Inpatient Print Language: [place]
[2023-12-06 19:29] LABS: MANUAL DIFF FLAG NO
[2023-12-06 19:31] LABS: Basophils Percent Auto 0.5 % (0-2); Eosinophils Absolute Auto 0.4 X10*3/uL (0.0-0.4); Eosinophils Percent Auto 4.4 % (0-4); Hematocrit 37.2 % (37.0-47.0); Hemoglobin 12.8 g/dl (12.0-16.0); Imm Gran Abs Auto 0.03 X10*3/uL (0.00-0.03); Imm Gran Pct Auto 0.4 % (0.0-0.4); Lymphocytes Absolute Auto 2.2 X10*3/uL (1.2-4.9); Lymphocytes Percent Auto 26.1 % (20-40); Mean Corpuscular HGB Conc 34.4 g/dl (31.0-35.0); Mean Corpuscular Hemoglobin 34.7 pg (27.0-33.0); Mean Corpuscular Volume 100.8 fL (80.0-98.0); Mean Platelet Volume 9.7 fL (9.4-12.3); Monocytes Percent Auto 11.8 % (2-11); Neutrophils Absolute Auto 4.8 x10*3/uL (2.0-8.3); Neutrophils Percent Auto 56.8 % (45-73); Platelet Count 363 X10*3/uL (160-400); Red Blood Count 3.69 X10*6/uL (4.20-5.50); White Blood Count 8.4 X10*3/uL (4.8-10.8)
--- NOTE | 2023-12-06 19:34 | PC.NURSE ---
a&ox4. vss and up to date. nsr/sinus kath on the engine monitor - HR between 55-60bpm. pt biba from home d/t left sided numbness/tingling in LUE from shoulder to fingers x 1 week. pt also verbalizing slur in words x 2 days but states sx have now resolved. pt also stating increased weakness/difficulty ambulating x this am. per EMS, - no sx for fast ED score noted aside from numbness in extremity. left sided facial droop noted by this RN. pt states she is unaware if this is her baseline. otherwise, decreased sensation noted in left upper extremity. equal strength noted in LE bilaterally. face not symmetrical. denies feeling dizzy/change in vision. nursing swallow eval performed - no difficulties in swallowing noted. ekg performed by tech. 18gIV placed in the right forearm - labs obtained/sent to lab. no sob/wob noted. respirations even/unlabored. pt seen by ED provider/aware of plan moving forward. plan of care ongoing. call blanton placed within reach.
[2023-12-06 19:55] LABS: Troponin-I High Sensitivity < 2.7 ng/L (<3.5-17.0)
[2023-12-06 20:04] LABS: Prothrombin Time 12.7 SEC (11.1-13.3)
[2023-12-06 20:07] LABS: Partial Thromboplastin Time 32.5 SEC (26.0-36.8)
--- NOTE | 2023-12-06 20:29 | PC.NURSE ---
delay in scan being completed d/t labs hemolyzing. tech reobtaining labs at this time. plan of care ongoing.
--- NOTE | 2023-12-06 21:01 | PHA.MEDREC ---
Pharmacy Consult ? Medication Reconciliation Pharmacy has completed the medication reconciliation. Patient reports no longer taking Atorvaquone because it tastes gross Padma Talamantes, PharmD
[2023-12-06 21:03] LABS: Alanine Aminotransferase 7 U/L (0-31); Albumin Level 3.8 g/dL (3.5-5.0); Alkaline Phosphatase 64 U/L (39-117); Anion Gap 13 (12-20); Aspartate Amino Transferase 18 U/L (5-31); Bilirubin Total 0.2 mg/dL (0.0-1.0); Blood Urea Nitrogen 21 mg/dL (9-16); Calcium 9.8 mg/dL (8.4-10.2); Carbon Dioxide 25 mmol/L (22-29); Chloride 109 mmol/L (96-108); Creatinine Clr Calc Pharmacy 32.6; Estimated Glomerular Filt Rate 51; Glucose Random 88 mg/dL (60-115); Potassium 4.4 mmol/L (3.3-5.1); Sodium 143 mmol/L (135-145); Total Protein 8.4 g/dL (6.5-8.0)
--- NOTE | 2023-12-06 21:16 | PC.NURSE ---
pt to CTA at this time.
[2023-12-06] MEDS: iohexoL 350 MG/ML 100 ML INFUS..BTL 80 ML IV (21:31)
[2023-12-06 21:33] VITALS: BP 121/50; PULSE 57; RESP 16; TEMP 36.7; O2SAT 95
--- NOTE | 2023-12-06 21:35 | PC.NURSE ---
1:1 assist needed to commode as pt has an unsteady gait. UA obtained/sent to lab. CT results pending at this time.
[2023-12-06 21:41] LABS: Appearance Urine Turbid; Color Urine Yellow; Glucose Urine UA Negative (Negative); Leukocyte Esterase Urine Large (3+) (Negative); Nitrite Urine Positive (Negative); PH 5.5 (5.0-9.0); Specific Gravity - Urine 1.015 (1.005-1.025); UMIC TRIGGER UACC YES; Urine Blood Small (1+) (Negative); Urine Ketones Negative (Negative); Urine Protein 100 (2+) mg/dL (Neg-Trace)
[2023-12-06 22:07] LABS: Bacteria Urine 4+ (None Seen); Hyaline Casts Urine 0-2 /LPF (0-2); RBC Urine 0-2 /HPF (0-2); UACC Culture Trigger YES; WBC Urine >50 /HPF (0-5)
--- NOTE | 2023-12-06 23:54 | PC.NURSE ---
pt going over CTA results w/ provider at this time.
[2023-12-07] VITALS (11 sets, daily range): BP systolic 99–111; BP diastolic 56–73; PULSE 47–77; RESP 14–21; TEMP 36.4–37.9; O2SAT 91–96; BMI 16.0
--- NOTE | 2023-12-07 00:40 | PM.IMHP ---
History of Present Illness Date of Service: 12/07/23 Chief Complaint: Extremity weakness This is a 58-year-old female with pertinent history of HIV, asthma not on home oxygen, severe protein calorie malnutrition, CKD stage 3 who presents to the emergency department evaluation of extremity weakness. Patient states she 1st noticed left upper extremity weakness about 1 week prior to presentation. It was sudden in onset and has been progressive since. Patient is unable to move her left wrist and fingers. Patient states on the day of presentation she developed slurred speech and facial droop. No vision changes. No other extremity weakness. Patient states she has been compliant with HAART. She denies fever, chills, chest discomfort, palpitations, shortness of breath, abdominal pain or changes in bowel habits. She endorses dysuria and urinary hesitancy. Patient states she had been coughing for a while which has now resolved. In the emergency department, imaging with subacute occlusion of right ICA. Also hypodensity noted in the right frontal/parietal and parieto-occipital region concerning for CVA. Review of Systems Constitutional: Constitutional: Reports no additional constitutional complaints and Reports weakness Cardiovascular: Cardiovascular: Reports no additional cardiovascular complaints Respiratory: Respiratory: Reports no additional respiratory complaints Gastrointestinal: Gastrointestinal: Reports no additional gastrointestinal complaints Genitourinary: Genitourinary: Reports no additional female genitourinary complaints Neurologic: Reports weakness [facility] Medical History Shingles Asthma CKD (chronic kidney disease) HIV infection Family History Maternal Aunt Breast cancer Paternal Grandmother Stomach cancer Surgical History Hx of esophagogastroduodenoscopy Social History Household Members: Family Housing: Apartment Do you presently have visiting nurse or other home services: No Patient Tobacco Use Status: Former Tobacco user Tobacco use type: Cigarette Smoked in Last 30 Days: Yes Use of substances other than those prescribed or required for medical reasons: No Advance Directives: No Advance Directives Information Provided: No Do you have a plan to hurt others: No Plan Patient : No service: No Current occupational exposures/hazards: No Meds Allergies Allergy/AdvReac Type Severity Reaction Status Date / Time nevirapine [From VIRAMUNE] Allergy Unknown UNKNOWN Verified 12/06/23 19:02 penicillin V Allergy Unknown itchy Verified 12/06/23 19:02 Penicillins [PENICILLINS] Allergy Unknown N/A Verified 12/06/23 19:02 sulfamethoxazole Allergy Unknown UNKNOWN, Verified 12/06/23 19:02 [From BACTRIM] upset stomach trimethoprim [From BACTRIM] Allergy Unknown UNKNOWN Verified 12/06/23 19:02 Home Medications ?Medication ?Instructions ?Recorded ?Confirmed ?Last Taken ?Type albuterol sulfate 90 mcg/actuation 2 puff inhalation Q4H PRN 11/16/20 12/06/23 12/05/23 History aerosol inhaler Shortness Of Breath Or Wheezing cholecalciferol (vitamin D3) 25 25 mcg PO DAILY 12/06/23 12/06/23 12/05/23 History mcg (1,000 unit) tablet clobetasol 0.05 % topical ointment 1 appl topical DAILY PRN eczema 12/06/23 12/06/23 12/05/23 History fluticasone furoate 100 1 inh inhalation DAILY 12/06/23 12/06/23 12/05/23 History mcg/actuation blister powder for inhalation (Arnuity Ellipta) Physical Exam Vital Signs and Narrative: Vital Signs: Last Vital Signs Temp 98.0 F 12/06/23 21:33 Pulse 57 12/06/23 21:33 Resp 16 12/06/23 21:33 BP 121/50 L 12/06/23 21:33 Pulse Ox 95 12/06/23 21:33 O2 Del Method Room Air 12/06/23 21:33 BMI result Body Mass Index 16.7 Middle-aged female lying in bed in no distress Neck supple, no JVD Regular rate and rhythm, S1-S2 heard Regular breath sounds bilaterally, no wheezing or crackles appreciated Abdomen soft nontender, no guarding, no rigidity Patient is awake, alert and oriented to self, place, time and person ; left upper extremity distal weakness present, facial droop seen Psych: Normal mood No pedal edema Results Labs 12/06/23 19:26 12/06/23 20:35 Labs: Laboratory Results - last 24 hr 0712/06/23 12/06/23 19:26 20:35 21:34 MCV 100.8 H MCH 34.7 H MCHC 34.4 RDW 12.0 Plt Count 363 D MPV 9.7 Immature Gran % (Auto) 0.4 Neut % (Auto) 56.8 Lymph % (Auto) 26.1 [place] % (Auto) 11.8 H Eos % (Auto) 4.4 H Baso % (Auto) 0.5 Lymph # (Auto) 2.2 [place] # (Auto) 1.0 Eos # (Auto) 0.4 Baso # (Auto) 0.0 Abs Immat Gran (auto) 0.03 Absolute Neuts (auto) 4.8 Absolute Nucleated RBC 0.000 Nucleated RBC % (auto) 0.0 PT 12.7 INR 1.0 APTT 32.5 Anion Gap 13 Estim Creat Clear Calc 32.6 Estimated GFR 51 Random Glucose 88 Calcium 9.8 D Total Bilirubin 0.2 AST 18 ALT 7 Alkaline Phosphatase 64 Troponin I High Sens < 2.7 Total Protein 8.4 H Albumin 3.8 Urine Color Yellow Urine Appearance Turbid Urine pH 5.5 Ur Specific [place] 1.015 Urine Protein 100 (2+) H Urine Glucose (UA) Negative Urine Ketones Negative Urine Blood Small (1+) H Urine Nitrite Positive H Ur Leukocyte Esterase Large (3+) H Urine RBC 0-2 Urine WBC >50 H Ur Squamous Epith Cells 3-5 Urine Bacteria 4+ Hyaline Casts 0-2 Imaging Radiologist's Impressions: Impressions Head/Neck CTA 12/06/23 21:41 IMPRESSION: CT HEAD: Hypodensity with loss of vasques-white differentiation in the posterior right frontal lobe, right parietal lobe, and right parietal-occipital region. Findings suspicious for acute/subacute infarction. Correlation with MRI is recommended. CTA NECK: There is subocclusive thrombus in the mid right cervical internal carotid artery. Nodularity in the bilateral lung knox, as described above, may be infectious/inflammatory but is indeterminate. Correlation with dedicated chest CT is recommended for further evaluation. Additionally, attention on short-term interval follow-up is recommended to ensure appropriate resolution. CTA HEAD: The right M2 superior division is occluded in its mid aspect. Subocclusive filling defect at the right jugular bulb suspicious for nonocclusive venous thrombus. Attention on follow-up is recommended. This critical result was discussed with at 11:32 on 12/06/23 and it was ascertained that the content and urgency of the report was understood at the time of direct communication. Assessment and Plan (1) CVA (cerebral vascular accident): Status: Acute Plan This is a 58-year-old female with pertinent history of HIV, asthma not on home oxygen, severe protein calorie malnutrition, CKD stage 3 who presents to the emergency department evaluation of extremity weakness. #. Acute CVA: Will admit patient with cardiac monitoring. Initiating dual antiplatelet therapy and high-intensity statin. Lipid panel, A1c and transthoracic echocardiogram to complete workup. Obtaining MRI to delineate anatomy. Consulting Neurology, appreciate assistance. PT/OT to evaluate and treat. Stroke education. CTA with right M2 occlusion and subocclusive thrombus in the right internal carotid artery. Case was discussed with Dr. Groves and Dr. Reyes (neuro interventionalist, [facility]) and no acute intervention was deemed necessary. Will consult vascular surgery #. Acute UTI: Initiating IV ceftriaxone while in the hospital. No sepsis #. CKD stage 3: Creatinine at baseline #. HIV: On HAART #. Severe protein calorie malnutrition: Consulting nutrition #. Asthma: No exacerbation during admission. Continue home inhalers DVT prophylaxis: Lovenox Full code Admit as inpatient and will require two night minimum hospital stay for evaluation of acute CVA, IV antibiotics (as above), which is not possible in a lesser acute setting. Specialist consult pending Quality Stroke Does the patient have a stroke diagnosis?: No VTE Prior VTE?: No VTE Risk Level:: Medical - moderate - high VTE Device Contraindication: Treatment Not Indicated VTE Drug Contraindication: N/A - Med Ordered
[2023-12-07] MEDS: Aspirin 325 MG TABLET PO (01:03)
[2023-12-07] MEDS: cefuroxime axetiL 500 MG TABLET PO (01:03)
[2023-12-07] MEDS: Atorvastatin Calcium 80 MG TABLET PO (01:03)
--- NOTE | 2023-12-07 01:19 | PC.NURSE ---
Addendum entered by Sneha Casper 12/07/23 02:47: swallowed pills whole* Original Note: facial droop/decreased sensation in LUE still noted at this time. otherwise neuros remain intact. pt medicated per provider order. swallowed whole pole w/ water w/o any complications. pt aware of plan of care moving forward in regards to being admitted. pt waiting for bed assignment at this time. call bl[place] placed within reach.
[2023-12-07] MEDS: cefTRIAXone sodium 1 GM in 0.9 % Sodium Chloride 50 ML IV (01:33)
[2023-12-07] MEDS: Enoxaparin Sodium 40 MG/0.4 ML SYRINGE SUBCUT (01:34)
--- NOTE | 2023-12-07 02:47 | PC.NURSE ---
MRI form filled out/faxed/placed in pt's chart.
[2023-12-07 05:16] LABS: Estimated Average Glucose 100 mg/dL; Hemoglobin A1c % 5.1 % (<6.0)
[2023-12-07 06:13] LABS: MANUAL DIFF FLAG NO
[2023-12-07 06:23] LABS: Basophils Percent Auto 0.4 % (0-2); Eosinophils Absolute Auto 0.3 X10*3/uL (0.0-0.4); Eosinophils Percent Auto 4.5 % (0-4); Hematocrit 35.2 % (37.0-47.0); Imm Gran Abs Auto 0.04 X10*3/uL (0.00-0.03); Imm Gran Pct Auto 0.6 % (0.0-0.4); Lymphocytes Absolute Auto 1.8 X10*3/uL (1.2-4.9); Lymphocytes Percent Auto 25.7 % (20-40); Mean Corpuscular HGB Conc 34.1 g/dl (31.0-35.0); Mean Corpuscular Hemoglobin 33.7 pg (27.0-33.0); Mean Corpuscular Volume 98.9 fL (80.0-98.0); Mean Platelet Volume 9.5 fL (9.4-12.3); Monocytes Absolute Auto 0.7 X10*3/uL (0.1-1.2); Monocytes Percent Auto 9.5 % (2-11); Neutrophils Absolute Auto 4.1 x10*3/uL (2.0-8.3); Neutrophils Percent Auto 59.3 % (45-73); Platelet Count 369 X10*3/uL (160-400); Red Blood Count 3.56 X10*6/uL (4.20-5.50); White Blood Count 6.9 X10*3/uL (4.8-10.8)
[2023-12-07 06:28] LABS: Anion Gap 14 (12-20); Blood Urea Nitrogen 21 mg/dL (9-16); Calcium 9.5 mg/dL (8.4-10.2); Carbon Dioxide 23 mmol/L (22-29); Chloride 108 mmol/L (96-108); Creatinine Clr Calc Pharmacy 32.6; Estimated Glomerular Filt Rate 51; Glucose Random 83 mg/dL (60-115); Potassium 4.4 mmol/L (3.3-5.1); Sodium 141 mmol/L (135-145)
--- NOTE | 2023-12-07 07:00 | CA_ITS ---
Transthoracic Echocardiogram Patient (Last, First, Middle): Renetta Tee, Gender: Female Date of : 1965 Age: 58 Procedure Date: 12/07/2023 Procedure Type: Transthoracic Echocardiogram Location: [facility] [place] Height: 149.86 cm Weight: 37.2 kg BSA: 1.26 m2 Heart Rate: bpm BP: 110 / 57 mmHg [place] He[place]: TO Referring MD: Audra Harvey MD Symptoms: CVA Study Quality: Fair/Contrast ECG Rhythm: Sinus Conclusions: - The left ventricular systolic function is normal. The calculated ejection fraction is 62% by biplane method. - The inferoseptal wall is hypokinetic. - There is no evidence of a patent foramen ovale. - No obvious valvular pathology seen on this study. Findings Procedure Information Contrast agent, definity, is being given per protocol without apparent complications. Left Ventricle Normal left ventricular cavity size. There is normal left ventricular wall thickness. The left ventricular systolic function is normal. The calculated ejection fraction is 62% by biplane method. Diastolic function is normal for age. Wall Motion Rest Echo Findings The inferoseptal wall is hypokinetic. Right Ventricle Normal right ventricular cavity size and systolic function. Atria Both atria are normal in size. There is no evidence of a patent foramen ovale. (bubble study negative with rest and valsalva). Aortic Valve The aortic valve was not well visualized. There is no aortic valve stenosis. There is no aortic valve regurgitation. Mitral Valve The mitral valve appears normal. There is no mitral valve regurgitation. There is no mitral valve stenosis. Pulmonic Valve The pulmonic valve is likely normal. Tricuspid Valve There is trace tricuspid valve regurgitation. There is no evidence of pulmonary hypertension. Great Vessels The sinuses of valsalva is normal in size. Venous The inferior vena cava is normal in size and collapses greater than 50% with inspiration. Pericardium/Pleural There is no evidence of pericardial effusion. Prior Study Comparison No prior study available for comparison. Recommendations, Care & Conclusions No obvious valvular pathology seen on this study. Measurements 2D Linear Measurements IVSd: 0.64 0.6-0.9/0.6-1.0 cm LVIDd: 3.85 3.9-5.3/4.2-5.9 cm LVIDd Index: 3.06 2.4-3.2/2.2-3.1 cm/m2 LVIDs: 2.78 2.0-3.6 cm LVPWd: 0.52 0.7-1.1 cm LA Diam: 2.60 2.7-3.8/3.0-4.0 cm LAIDs Index: 2.06 1.5-2.3 cm/m2 LV Mass: 71.28 67-162/88-224 g LV Mass Index: 56.57 43-95/49-115 g/m2 LVOT Diam: 1.90 3.0+(-)1.3 cm 2D Systolic Function EF 4C: 62.90 >55% EF 2C: 65.20 >55% EF BiP: 61.60 >55% Mitral Valve MV Pk E: 0.62 MV PK A: 0.52 MV Decel Time: 259.00 E/A: 1.20 E'Lateral: 14.70 E'Medial: 10.10 E/E' Med: 6.20 E/E' Lat: 4.20 PHT: 72.00 MVA PHT: 3.06 Decel [place]: 2.72 Aortic Valve AoV Pk Pancho: 1.36 AoV Mn Pancho: 1.00 AoV VTI: 0.26 AoV Pk Grad: 7.00 Aov Mn Grad: 4.00 YENI Cont.VTI: 2.15 LVOT LVOT Pk Panhco: 1.18 LVOT Mn Pancho: 0.72 LVOT VTI: 0.20 LVOT Pk Grad: 6.00 LVOT Mn Grad: 3.00 LVOT Diam: 1.90 LVOT Area: 2.84 Diastolic Function MV Pk E: 0.62 MV Pk A: 0.52 E/A: 1.20 E'Medial: 10.10 E/E' Med: 6.20 E' Laterial: 14.70 E/E' Lat: 4.20 Right Ventricle TAPSE (mm): 18.60 TVS' Pancho: 11.30 Tricuspid Valve RA Press: 3.00 Great Vessels Aorta Sinus of Valsalva: 2.69 2.0-3.5 cm Updated in Other Vendor System with Status of Final Jordan Hawthorne MD electronically signed on 12/08/2023 11:07:18 AM with status of Final
[2023-12-07] MEDS: Cholecalciferol (Vitamin D3) 25 MCG TABLET PO (09:36)
[2023-12-07] MEDS: Atorvastatin Calcium 40 MG TABLET PO (09:36)
[2023-12-07] MEDS: Clopidogrel Bisulfate 75 MG TABLET PO (09:36)
[2023-12-07] MEDS: Fluconazole 100 MG TABLET 200 MG PO (09:36)
[2023-12-07] MEDS: Aspirin Enteric Coated 81 MG TABLET.DR PO (09:36)
[2023-12-07] MEDS: Bictegrav/Emtricit/Tenofov Ala TABLET 1 TAB PO (09:36)
[2023-12-07] MEDS: Fluticasone Propionate 100 MCG BLST.W.DEV 1 PUFF INHALE (11:47)
--- NOTE | 2023-12-07 13:30 | MHC.CM.PN ---
This CM met with pt with the assistance of a motor vehicle parts interpreter, but pt did not need one. Pt self-care, lives alone at home. Pt will need assistance with transportation home. Pt educated on but declined a HCP at this time. PCP: Dr. Theodora Sampson
[2023-12-07] MEDS: ondansetron HCL 4 MG/2 ML VIAL IVPUSH (14:09)
--- NOTE | 2023-12-07 14:34 | MHC.CLN ---
NUTRITION CONSULT FOR MALNUTRITION. REGULAR DIET. TAKES ENSURE SUPPLEMENT AT HOME. ENSURE TID PROVIDES 1050 KCALS, 60 G PROTEIN. QUALIFIES SEVERELY MALNOURISHED IN THE CONTEXT OF CHRONIC ILLNESS. SEVERE DEPLETION OF BODY FAT AND MUSCLE MASS NOTED. HX SIGNIFICANT WEIGHT LOSS. DID NOT EAT LUNCH TODAY. FOLLOW FOR INTAKE. CONTINUE REGULAR DIET AND SUPPLEMENT. SEE CLINICAL NUTRITION ASSESSMENT 12/07/23.
--- NOTE | 2023-12-07 17:00 | HO.PM.IMPN ---
Subjective Subjective Date of Service: 12/08/23 Interval History: f/u on acute stroke with left sided weakness, right carotid thrombosis and UTI in hiv patient Patient still has weakness on left side, and has been having chills. being treated for UTI Physical Exam Vital Signs: Vital Signs: Last Vital Signs Temp 100.2 F 12/07/23 15:49 Pulse 77 12/07/23 15:49 Resp 16 12/07/23 15:49 BP 99/73 12/07/23 15:49 Pulse Ox 93 12/07/23 15:49 O2 Del Method Room Air 12/07/23 15:49 BMI result Body Mass Index 16.0 General: AO X 3, no acute distress Resp: CTA bilateral CVS: S1,S2,RRR GI: +BS, NT, no distention Skin: No rash Neuro: weakness in the distal hand hand, hand drop like, and some facial droop, normal speech Psych: appropriate affect Objective Data Active Medications Acetaminophen (Acetaminophen 325 Mg Tablet) 650 mg PO Q6H PRN PRN Reason: Pain, Mild (Pain Scale 1-3), fever or headache Albuterol Sulfate (Albuterol Sulfate 90 Mcg 8 Gm Inhaler) 2 puff INHALE Q4H PRN PRN Reason: Shortness Of Breath Or Wheezing Aspirin (Aspirin Enteric Coated 81 Mg Tablet.) 81 mg PO DAILY [facility] Last Admin: 12/07/23 09:36 Dose: 81 mg Documented By: YURI Atorvastatin Calcium (Atorvastatin Calcium 40 Mg Tablet) 40 mg PO DAILY [facility] Last Admin: 12/07/23 09:36 Dose: 40 mg Documented By: YURI Betamethasone Dipropion Augmented (Betamethasone Dip Aug 0.05% Cr 15 Gm Tube) 1 appl TOPICAL DAILY PRN PRN Reason: eczema Bictegravir/Emtricitabine/Tenofovir (Bictegrav/Emtricit/Tenofov Ala Tablet) 1 tab PO DAILY [facility] Last Admin: 12/07/23 09:36 Dose: 1 tab Documented By: YURI Calcium Carbonate (Calcium Carbonate 750 Mg Tab.Chew) 750 mg PO Q4H PRN PRN Reason: Heartburn Clopidogrel Bisulfate (Clopidogrel Bisulfate 75 Mg Tablet) 75 mg PO DAILY [facility] Last Admin: 12/07/23 09:36 Dose: 75 mg Documented By: YURI Enoxaparin Sodium (Enoxaparin Sodium 40 Mg/0.4 Ml Syringe) 40 mg SUBCUT Q24H [facility] Last Admin: 12/07/23 01:34 Dose: 40 mg Documented By: BRIAN Fluconazole (Fluconazole 100 Mg Tablet) 200 mg PO DAILY [facility] Last Admin: 12/07/23 09:36 Dose: 200 mg Documented By: YURI Fluticasone Propionate (Fluticasone Propionate 100 Mcg Blst.W.Dev) 1 puff INHALE DAILY [facility] Last Admin: 12/07/23 11:47 Dose: 1 puff Documented By: RODRICK Ceftriaxone Sodium 1 gm/ (Sodium Chloride) 50 mls @ 100 mls/hr IV Q24H [facility] Last Infusion: 12/07/23 02:23 Dose: Infused Documented By: BRIAN Magnesium Hydroxide (Milk Of Magnesia 30 Ml Oral.Susp) 30 ml PO DAILY PRN PRN Reason: Constipation Melatonin (Melatonin 3 Mg Tablet) 6 mg PO BEDTIME PRN PRN Reason: Insomnia Ondansetron HCl (Ondansetron Hcl 4 Mg/2 Ml Vial) 4 mg IVPUSH Q8H PRN PRN Reason: Nausea and Vomiting Last Admin: 12/07/23 14:09 Dose: 4 mg Documented By: MARLIN Vitamin D (Cholecalciferol (Vitamin D3) 25 Mcg Tablet) 25 mcg PO DAILY [facility] Last Admin: 12/07/23 09:36 Dose: 25 mcg Documented By: YURI Labs 12/07/23 06:10 12/08/23 06:49 Labs: Laboratory Results - last 24 hr 12/06/23 12/06/23 12/06/23 19:26 20:35 21:34 MCV 100.8 H MCH 34.7 H MCHC 34.4 RDW 12.0 Plt Count 363 D MPV 9.7 Immature Gran % (Auto) 0.4 Neut % (Auto) 56.8 Lymph % (Auto) 26.1 Callahan % (Auto) 11.8 H Eos % (Auto) 4.4 H Baso % (Auto) 0.5 Lymph # (Auto) 2.2 Callahan # (Auto) 1.0 Eos # (Auto) 0.4 Baso # (Auto) 0.0 Abs Immat Gran (auto) 0.03 Absolute Neuts (auto) 4.8 Absolute Nucleated RBC 0.000 Nucleated RBC % (auto) 0.0 PT 12.7 INR 1.0 APTT 32.5 Anion Gap 13 Estim Creat Clear Calc 32.6 Estimated GFR 51 Random Glucose 88 Estimat Average Glucose 100 Hemoglobin A1c % 5.1 Calcium 9.8 D Total Bilirubin 0.2 AST 18 ALT 7 Alkaline Phosphatase 64 Troponin I High Sens < 2.7 Total Protein 8.4 H Albumin 3.8 Urine Color Yellow Urine Appearance Turbid Urine pH 5.5 Ur Specific [place]stone 1.015 Urine Protein 100 (2+) H Urine Glucose (UA) Negative Urine Ketones Negative Urine Blood Small (1+) H Urine Nitrite Positive H Ur Leukocyte Esterase Large (3+) H Urine RBC 0-2 Urine WBC >50 H Ur Squamous Epith Cells 3-5 Urine Bacteria 4+ Hyaline Casts 0-2 12/07/23 06:10 MCV 98.9 H MCH 33.7 H MCHC 34.1 RDW 12.0 Plt Count 369 MPV 9.5 Immature Gran % (Auto) 0.6 H Neut % (Auto) 59.3 Lymph % (Auto) 25.7 Callahan % (Auto) 9.5 Eos % (Auto) 4.5 H Baso % (Auto) 0.4 Lymph # (Auto) 1.8 Callahan # (Auto) 0.7 Eos # (Auto) 0.3 Baso # (Auto) 0.0 Abs Immat Gran (auto) 0.04 H Absolute Neuts (auto) 4.1 Absolute Nucleated RBC 0.000 Nucleated RBC % (auto) 0.0 PT INR APTT Anion Gap 14 Estim Creat Clear Calc 32.6 Estimated GFR 51 Random Glucose 83 Estimat Average Glucose Hemoglobin A1c % Calcium 9.5 Total Bilirubin AST ALT Alkaline Phosphatase Troponin I High Sens Total Protein Albumin Urine Color Urine Appearance Urine pH Ur Specific [place] Urine Protein Urine Glucose (UA) Urine Ketones Urine Blood Urine Nitrite Ur Leukocyte Esterase Urine RBC Urine WBC Ur Squamous Epith Cells Urine Bacteria Hyaline Casts Microbiology Microbiology Results: Microbiology 12/06/23 22:58 Urine Culture - Preliminary Urine clean catch - Clean Catch Midstream Culture in progress. Assessment and Plan (1) CVA (cerebral vascular accident): Status: Acute Plan This is 58-year-old female with pertinent history of HIV, asthma not on home oxygen, severe protein calorie malnutrition, CKD stage 3 who presents to the emergency department evaluation of left hand weakness, facial droop Acute CVA with left sided weakness and numbness, slur speech. CTA show right M2 occlusion and subocclusive thrombus in the right internal carotid arter Patient could not tolerate MRI and thus been treateded with antipletlets (Plavix and ASA), statin and anticoagulaion per neuro. Vascular surgery eval can be done on outpatient basis. Echo to be done. Neuro checks. PT/OT, stroke education prior to discharge.. Starting therapeutic lovenox and stopping plavix, continue ASA Acute UTI fever, IV ceftriaxone while in the hospital. No sepsis. ID consul in light of HIV CKD stage 3: Creatinine at baseline HIV: On HAART Severe protein calorie malnutrition: Consulting nutrition Asthma: No exacerbation during admission. Continue home inhalers DVT prophylaxis: Lovenox Full code Need for inaptient: Acute stroke management and UTI getting IV Abx in an HIV patient Quality Stroke Does the patient have a stroke diagnosis?: No VTE Prior VTE?: No VTE Risk Level:: Medical - moderate - high VTE Device Contraindication: Treatment Not Indicated VTE Drug Contraindication: N/A - Med Ordered
[2023-12-07] MEDS: Enoxaparin Sodium 30 MG/0.3 ML SYRINGE 35 MG SUBCUT (17:41)
[2023-12-08] VITALS (8 sets, daily range): BP systolic 91–121; BP diastolic 55–69; PULSE 57–68; RESP 16–18; TEMP 36.6–37.6; O2SAT 91–96
[2023-12-08] MEDS: cefTRIAXone sodium 1 GM in 0.9 % Sodium Chloride 50 ML IV ×2 (01:19→23:56)
[2023-12-08] MEDS: Acetaminophen 325 MG TABLET 650 MG PO (01:21)
[2023-12-08] MEDS: ondansetron HCL 4 MG/2 ML VIAL IVPUSH ×2 (01:24→13:53)
[2023-12-08] MEDS: Enoxaparin Sodium 60 MG/0.6 ML SYRINGE 35 MG SUBCUT ×2 (06:51→18:15)
[2023-12-08 08:05] LABS: Cholesterol 152 mg/dL (<200); HDL Cholesterol 27 mg/dL (>40); LDL Cholesterol Calculated 97 mg/dL (<100); Triglycerides 142 mg/dL (<150)
[2023-12-08] MEDS: Bictegrav/Emtricit/Tenofov Ala TABLET 1 TAB PO (08:36)
[2023-12-08] MEDS: Fluconazole 100 MG TABLET 200 MG PO (08:36)
[2023-12-08] MEDS: Atorvastatin Calcium 40 MG TABLET PO (08:36)
[2023-12-08] MEDS: Cholecalciferol (Vitamin D3) 25 MCG TABLET PO (08:36)
[2023-12-08] MEDS: Aspirin Enteric Coated 81 MG TABLET.DR PO (08:36)
[2023-12-08] MEDS: Fluticasone Propionate 100 MCG BLST.W.DEV 1 PUFF INHALE (08:37)
[2023-12-08] MEDS: 0.9 % Sodium Chloride 1,000 ML 125 ML IVCONT ×3 (08:46→23:46)
[2023-12-08 08:50] LABS: Anion Gap 15 (12-20); Blood Urea Nitrogen 19 mg/dL (9-16); Calcium 9.1 mg/dL (8.4-10.2); Carbon Dioxide 24 mmol/L (22-29); Chloride 106 mmol/L (96-108); Creatinine Clr Calc Pharmacy 21.2; Estimated Glomerular Filt Rate 33; Glucose Random 91 mg/dL (60-115); Potassium 4.1 mmol/L (3.3-5.1); Sodium 141 mmol/L (135-145)
--- NOTE | 2023-12-08 09:17 | P.CNNE_ITS ---
History of Present Illness Data of Consult Service Date: 12/08/23 Primary Care Provider: Theodora Sampson MD [facility] Reason for consult: Cerebral infarction 58 years old woman with underlying history of HIV disease and malnutrition who came to hospital with few days history of left-sided arm and hand numbness and weakness. At 1 point she started having problem with her speech and upon family's suggestion she came to hospital. She was initially evaluated for acute stroke and was noted to have a clot and right internal carotid artery and was admitted. There was no complaint of any significant headache or neck pain or neck manipulation or injury. Review of Systems 2 Review of Systems: No recent physical trauma or cold or flu-like illness PMFSH Past Medical History Medical History Shingles Asthma CKD (chronic kidney disease) HIV infection Family History Family History Maternal Aunt Breast cancer Paternal Grandmother Stomach cancer Surgical History Surgical History Hx of esophagogastroduodenoscopy Social History Social History Household Members: None Housing: Apartment Do you presently have visiting nurse or other home services: No Patient Tobacco Use Status: Former Tobacco user Tobacco use type: Cigarette service: No Current occupational exposures/hazards: No Meds Allergies Allergy/AdvReac Type Severity Reaction Status Date / Time nevirapine [From VIRAMUNE] Allergy Unknown UNKNOWN Verified 12/06/23 19:02 penicillin V Allergy Unknown itchy Verified 12/06/23 19:02 Penicillins [PENICILLINS] Allergy Unknown N/A Verified 12/06/23 19:02 sulfamethoxazole Allergy Unknown UNKNOWN, Verified 12/06/23 19:02 [From BACTRIM] upset stomach trimethoprim [From BACTRIM] Allergy Unknown UNKNOWN Verified 12/06/23 19:02 Active Medications: Current Medications Acetaminophen (Acetaminophen 325 Mg Tablet) 650 mg PO Q6H PRN PRN Reason: Pain, Mild (Pain Scale 1-3), fever or headache Last Admin: 12/08/23 01:21 Dose: 650 mg Albuterol Sulfate (Albuterol Sulfate 90 Mcg 8 Gm Inhaler) 2 puff INHALE Q4H PRN PRN Reason: Shortness Of Breath Or Wheezing Aspirin (Aspirin Enteric Coated 81 Mg Tablet.Dr) 81 mg PO DAILY [facility] Last Admin: 12/08/23 08:36 Dose: 81 mg Atorvastatin Calcium (Atorvastatin Calcium 40 Mg Tablet) 40 mg PO DAILY [facility] Last Admin: 12/08/23 08:36 Dose: 40 mg Betamethasone Dipropion Augmented (Betamethasone Dip Aug 0.05% Cr 15 Gm Tube) 1 appl TOPICAL DAILY PRN PRN Reason: eczema Bictegravir/Emtricitabine/Tenofovir (Bictegrav/Emtricit/Tenofov Ala Tablet) 1 tab PO DAILY [facility] Last Admin: 12/08/23 08:36 Dose: 1 tab Calcium Carbonate (Calcium Carbonate 750 Mg Tab.Chew) 750 mg PO Q4H PRN PRN Reason: Heartburn Enoxaparin Sodium (Enoxaparin Sodium 60 Mg/0.6 Ml Syringe) 35 mg SUBCUT Q12H [facility] Last Admin: 12/08/23 06:51 Dose: 35 mg Fluconazole (Fluconazole 100 Mg Tablet) 200 mg PO DAILY [facility] Last Admin: 12/08/23 08:36 Dose: 200 mg Fluticasone Propionate (Fluticasone Propionate 100 Mcg Blst.W.Dev) 1 puff INHALE DAILY [facility] Last Admin: 12/08/23 08:37 Dose: 1 puff Ceftriaxone Sodium 1 gm/ (Sodium Chloride) 50 mls @ 100 mls/hr IV Q24H [facility] Last Infusion: 12/08/23 02:17 Dose: Infused Sodium Chloride (Ns) 1,000 mls @ 125 mls/hr IVCONT .Q8H [facility] Last Admin: 12/08/23 08:46 Dose: 125 mls/hr Magnesium Hydroxide (Milk Of Magnesia 30 Ml Oral.Susp) 30 ml PO DAILY PRN PRN Reason: Constipation Melatonin (Melatonin 3 Mg Tablet) 6 mg PO BEDTIME PRN PRN Reason: Insomnia Ondansetron HCl (Ondansetron Hcl 4 Mg/2 Ml Vial) 4 mg IVPUSH Q8H PRN PRN Reason: Nausea and Vomiting Last Admin: 12/08/23 01:24 Dose: 4 mg Vitamin D (Cholecalciferol (Vitamin D3) 25 Mcg Tablet) 25 mcg PO DAILY [facility] Last Admin: 12/08/23 08:36 Dose: 25 mcg Home Medications ?Medication ?Instructions ?Recorded ?Confirmed ?Last Taken ?Type albuterol sulfate 90 mcg/actuation 2 puff inhalation Q4H PRN 11/16/20 12/06/23 12/05/23 History aerosol inhaler Shortness Of Breath Or Wheezing cholecalciferol (vitamin D3) 25 25 mcg PO DAILY 12/06/23 12/06/23 12/05/23 History mcg (1,000 unit) tablet clobetasol 0.05 % topical ointment 1 appl topical DAILY PRN eczema 12/06/23 12/06/23 12/05/23 History fluticasone furoate 100 1 inh inhalation DAILY 12/06/23 12/06/23 12/05/23 History mcg/actuation blister powder for inhalation (Arnuity Ellipta) Physical Exam 2 Vital Signs: Vital Signs: Last Vital Signs Temp 98.5 F 12/08/23 07:53 Pulse 61 12/08/23 08:38 Resp 18 12/08/23 08:38 BP 95/61 12/08/23 08:17 Pulse Ox 96 12/08/23 07:53 O2 Del Method Room Air 12/08/23 07:53 BMI result Body Mass Index 16.0 Neuro: Other: She is alert and awake with normal spontaneity of speech fluency comprehension and affect. There is mild left-sided central facial weakness. There is left hemianopsia. She is unable to move her left hand or fingers. She is able to lift her left arm against gravity. He is able to wiggle toes. She has in the bed curled up. Speech is normal. Overall physical examination suggested emaciated state. Results Labs 12/07/23 06:10 12/08/23 06:49 Labs: BMP 12/08/23 06:49 Sodium 141 Potassium 4.1 Chloride 106 Carbon Dioxide 24 BUN 19 H Creatinine 1.62 H Calcium 9.[address] a head CT CTA of brain and neck an MRI but MRI images were not available for review. CTA images revealed hypodensity in multiple areas of right middle cerebral artery territory. CTA revealed a filling defect in right extracranial internal carotid artery. Microbiology Microbiology Results: Microbiology 12/06/23 22:58 Urine clean catch - Clean Catch Midstream Urine Culture - Preliminary Culture in progress. Assessment and Plan (1) Cerebral infarction: Qualifiers: Cerebral infarction mechanism: vascular occlusion Precerebral and cerebral artery: carotid artery Laterality of affected vessel: right Qualified Code(s): I63.231 - Cerebral infarction due to unspecified occlusion or stenosis of right carotid arteries Status: Acute 58 years old woman with underlying HIV disease and other medical issues came to hospital with few days history of left-sided symptoms suggestive of right hemispheric pathology. Imaging with CT scan has revealed multiple areas of infarction and right middle cerebral artery territory and CTA of neck revealed a filling defect in right internal carotid artery. She might have carotid dissection. This has resulted in left hemiparesis especially for paralysis of left hand and left hemianopsia. I recommend anticoagulation for 3 months and after that smaller dose of anti-platelet agent as she has significant renal disease. PT OT consultation is recommended she should not drive at this time. Procedures Date of Service Date of Service: 12/08/23
--- NOTE | 2023-12-08 12:11 | HO.PM.IMPN ---
Subjective Subjective Date of Service: 12/08/23 Interval History: f/u on acute stroke with left sided weakness, facial droop and right carotid thrombosis and UTI in hiv patient Patient still has weakness in the left hand mouth facial droop, no fever, urine culture= gram negative do, creatine is going up with BP on low side. Physical Exam Vital Signs: Vital Signs: Last Vital Signs Temp 99.2 F 12/08/23 11:38 Pulse 68 12/08/23 11:38 Resp 16 12/08/23 11:38 BP 108/58 L 12/08/23 11:38 Pulse Ox 93 12/08/23 11:38 O2 Del Method Room Air 12/08/23 11:38 BMI result Body Mass Index 16.0 Const: Other: General: AO X 3, no acute distress Resp: CTA bilateral CVS: S1,S2,RRR GI: +BS, NT, no distention Skin: No rash Neuro: weakness in the distal hand hand, hand drop like, not able to move it, and some facial droop, normal speech Psych: appropriate affect Objective Data Active Medications Acetaminophen (Acetaminophen 325 Mg Tablet) 650 mg PO Q6H PRN PRN Reason: Pain, Mild (Pain Scale 1-3), fever or headache Last Admin: 12/08/23 01:21 Dose: 650 mg Documented By: OSMAR Albuterol Sulfate (Albuterol Sulfate 90 Mcg 8 Gm Inhaler) 2 puff INHALE Q4H PRN PRN Reason: Shortness Of Breath Or Wheezing Aspirin (Aspirin Enteric Coated 81 Mg Tablet.) 81 mg PO DAILY [facility] Last Admin: 12/08/23 08:36 Dose: 81 mg Documented By: DALIA Atorvastatin Calcium (Atorvastatin Calcium 40 Mg Tablet) 40 mg PO DAILY [facility] Last Admin: 12/08/23 08:36 Dose: 40 mg Documented By: DALIA Betamethasone Dipropion Augmented (Betamethasone Dip Aug 0.05% Cr 15 Gm Tube) 1 appl TOPICAL DAILY PRN PRN Reason: eczema Bictegravir/Emtricitabine/Tenofovir (Bictegrav/Emtricit/Tenofov Ala Tablet) 1 tab PO DAILY [facility] Last Admin: 12/08/23 08:36 Dose: 1 tab Documented By: DALIA Calcium Carbonate (Calcium Carbonate 750 Mg Tab.Chew) 750 mg PO Q4H PRN PRN Reason: Heartburn Enoxaparin Sodium (Enoxaparin Sodium 60 Mg/0.6 Ml Syringe) 35 mg SUBCUT Q12H [facility] Last Admin: 12/08/23 06:51 Dose: 35 mg Documented By: OSMAR Fluconazole (Fluconazole 100 Mg Tablet) 200 mg PO DAILY [facility] Last Admin: 12/08/23 08:36 Dose: 200 mg Documented By: DALIA Fluticasone Propionate (Fluticasone Propionate 100 Mcg Blst.W.Dev) 1 puff INHALE DAILY [facility] Last Admin: 12/08/23 08:37 Dose: 1 puff Documented By: RODRICK Ceftriaxone Sodium 1 gm/ (Sodium Chloride) 50 mls @ 100 mls/hr IV Q24H [facility] Last Infusion: 12/08/23 02:17 Dose: Infused Documented By: OSMAR Sodium Chloride (Ns) 1,000 mls @ 125 mls/hr IVCONT .Q8H [facility] Last Admin: 12/08/23 08:46 Dose: 125 mls/hr Documented By: DALIA Magnesium Hydroxide (Milk Of Magnesia 30 Ml Oral.Susp) 30 ml PO DAILY PRN PRN Reason: Constipation Melatonin (Melatonin 3 Mg Tablet) 6 mg PO BEDTIME PRN PRN Reason: Insomnia Ondansetron HCl (Ondansetron Hcl 4 Mg/2 Ml Vial) 4 mg IVPUSH Q8H PRN PRN Reason: Nausea and Vomiting Last Admin: 12/08/23 01:24 Dose: 4 mg Documented By: OSMAR Vitamin D (Cholecalciferol (Vitamin D3) 25 Mcg Tablet) 25 mcg PO DAILY [facility] Last Admin: 12/08/23 08:36 Dose: 25 mcg Documented By: DALIA Labs 12/07/23 06:10 12/08/23 06:49 Labs: Laboratory Results - last 24 hr 12/08/23 06:49 Hold Purple Top SEE NOTE Anion Gap 15 Estim Creat Clear Calc 21.2 Estimated GFR 33 Random Glucose 91 Calcium 9.1 Triglycerides 142 Cholesterol 152 LDL Cholesterol, Calc 97 HDL Cholesterol 27 L Microbiology Microbiology Results: Microbiology 12/06/23 22:58 Urine Culture - Preliminary Urine clean catch - Clean Catch Midstream Gram negative do Assessment and Plan (1) CVA (cerebral vascular accident): Status: Acute Plan 58-year-old female with pertinent history of HIV, asthma not on home oxygen, severe protein calorie malnutrition, CKD stage 3 who presents to the emergency department evaluation of left hand weakness, facial droop Acute CVA with left sided weakness and numbness, slur speech. CTA show right M2 occlusion and subocclusive thrombus in the right internal carotid arter Patient could not tolerate MRI and thus been treateded with antipletlets (Plavix and ASA), statin and anticoagulaion per neuro for 3 months Vascular surgery eval can be done on outpatient basis. Echo to be done. Neuro checks. PT/OT, stroke education prior to discharge.. Starting therapeutic lovenox, ASA Acute UTI fever, urine culture growin gram negative do, IV ceftriaxone while in the hospital. No sepsis. ID consul in light of HIV CKD stage [address] from low BP, started on IVF, repeat level tomorrow HIV: On HAART Severe protein calorie malnutrition: Consulting nutrition, ensur Asthma: No exacerbation during admission. Continue home inhalers DVT prophylaxis: Lovenox Full code Need for inaptient: Acute stroke management and UTI getting IV Abx in an HIV patient PT is recommending acut inpatient rehab, she is agreable Quality Stroke Does the patient have a stroke diagnosis?: No VTE Prior VTE?: No VTE Risk Level:: Medical - moderate - high VTE Device Contraindication: Treatment Not Indicated VTE Drug Contraindication: N/A - Med Ordered
--- NOTE | 2023-12-08 14:18 | W.PM.IDCN ---
History of Present Illness Data of Consult Service Date: 12/08/23 Requesting physician: Genaro Whitaker Primary Care Provider: Theodora Sampson MD [facility] Reason for consult: HIV care She presents with left arm and hand weakness and facial droop day of admission. She has right jugular nonocclusive thrombus and is getting anticoagulation and seen by Neurology. She says her brother age 59 from CVA. She has HIV and has been taking Biktarvy (picked up 09/04,10/14,11/25 at [facility] and also picked up atovaquone on September 17 for 90 day fill. She has last viral load 239,000 and CD4 count undetectable. She may have had dysuria recently. Review of Systems Review of Systems: Yes all other systems are reviewed and are negative [facility] Past Medical History Medical History Shingles Asthma CKD (chronic kidney disease) HIV infection Family History Family History Maternal Aunt Breast cancer Paternal Grandmother Stomach cancer Family history: reviewed and not pertinent Surgical History Surgical History Hx of esophagogastroduodenoscopy Social History Social History Household Members: None Housing: Apartment Do you presently have visiting nurse or other home services: No Patient Tobacco Use Status: Former Tobacco user Tobacco use type: Cigarette service: No Current occupational exposures/hazards: No Meds Allergies Allergy/AdvReac Type Severity Reaction Status Date / Time nevirapine [From VIRAMUNE] Allergy Unknown UNKNOWN Verified 12/06/23 19:02 penicillin V Allergy Unknown itchy Verified 12/06/23 19:02 Penicillins [PENICILLINS] Allergy Unknown N/A Verified 12/06/23 19:02 sulfamethoxazole Allergy Unknown UNKNOWN, Verified 12/06/23 19:02 [From BACTRIM] upset stomach trimethoprim [From BACTRIM] Allergy Unknown UNKNOWN Verified 12/06/23 19:02 Active Medications: Current Medications Acetaminophen (Acetaminophen 325 Mg Tablet) 650 mg PO Q6H PRN PRN Reason: Pain, Mild (Pain Scale 1-3), fever or headache Last Admin: 12/08/23 01:21 Dose: 650 mg Albuterol Sulfate (Albuterol Sulfate 90 Mcg 8 Gm Inhaler) 2 puff INHALE Q4H PRN PRN Reason: Shortness Of Breath Or Wheezing Aspirin (Aspirin Enteric Coated 81 Mg Tablet.Dr) 81 mg PO DAILY [facility] Last Admin: 12/08/23 08:36 Dose: 81 mg Atorvastatin Calcium (Atorvastatin Calcium 40 Mg Tablet) 40 mg PO DAILY [facility] Last Admin: 12/08/23 08:36 Dose: 40 mg Betamethasone Dipropion Augmented (Betamethasone Dip Aug 0.05% Cr 15 Gm Tube) 1 appl TOPICAL DAILY PRN PRN Reason: eczema Bictegravir/Emtricitabine/Tenofovir (Bictegrav/Emtricit/Tenofov Ala Tablet) 1 tab PO DAILY [facility] Last Admin: 12/08/23 08:36 Dose: 1 tab Calcium Carbonate (Calcium Carbonate 750 Mg Tab.Chew) 750 mg PO Q4H PRN PRN Reason: Heartburn Enoxaparin Sodium (Enoxaparin Sodium 60 Mg/0.6 Ml Syringe) 35 mg SUBCUT Q12H [facility] Last Admin: 12/08/23 06:51 Dose: 35 mg Fluconazole (Fluconazole 100 Mg Tablet) 200 mg PO DAILY [facility] Last Admin: 12/08/23 08:36 Dose: 200 mg Fluticasone Propionate (Fluticasone Propionate 100 Mcg Blst.W.Dev) 1 puff INHALE DAILY [facility] Last Admin: 12/08/23 08:37 Dose: 1 puff Ceftriaxone Sodium 1 gm/ (Sodium Chloride) 50 mls @ 100 mls/hr IV Q24H [facility] Last Infusion: 12/08/23 02:17 Dose: Infused Sodium Chloride (Ns) 1,000 mls @ 125 mls/hr IVCONT .Q8H [facility] Last Admin: 12/08/23 08:46 Dose: 125 mls/hr Magnesium Hydroxide (Milk Of Magnesia 30 Ml Oral.Susp) 30 ml PO DAILY PRN PRN Reason: Constipation Melatonin (Melatonin 3 Mg Tablet) 6 mg PO BEDTIME PRN PRN Reason: Insomnia Ondansetron HCl (Ondansetron Hcl 4 Mg/2 Ml Vial) 4 mg IVPUSH Q8H PRN PRN Reason: Nausea and Vomiting Last Admin: 12/08/23 13:53 Dose: 4 mg Vitamin D (Cholecalciferol (Vitamin D3) 25 Mcg Tablet) 25 mcg PO DAILY [facility] Last Admin: 12/08/23 08:36 Dose: 25 mcg Home Medications ?Medication ?Instructions ?Recorded ?Confirmed ?Last Taken ?Type albuterol sulfate 90 mcg/actuation 2 puff inhalation Q4H PRN 11/16/20 12/06/23 12/05/23 History aerosol inhaler Shortness Of Breath Or Wheezing cholecalciferol (vitamin D3) 25 25 mcg PO DAILY 12/06/23 12/06/23 12/05/23 History mcg (1,000 unit) tablet clobetasol 0.05 % topical ointment 1 appl topical DAILY PRN eczema 12/06/23 12/06/23 12/05/23 History fluticasone furoate 100 1 inh inhalation DAILY 12/06/23 12/06/23 12/05/23 History mcg/actuation blister powder for inhalation (Arnuity Ellipta) Physical Exam Vital Signs: Vital Signs: Last Vital Signs Temp 99.2 F 12/08/23 11:38 Pulse 68 12/08/23 11:38 Resp 16 12/08/23 11:38 BP 108/58 L 12/08/23 11:38 Pulse Ox 93 12/08/23 11:38 O2 Del Method Room Air 12/08/23 11:38 BMI result Body Mass Index 16.0 HEENT: Mouth: Normal oral and palatal mucosa present (slt thrush) Extrem: Other: slt weakness left side mouth ,arm and hand Results Labs 12/07/23 06:10 12/08/23 06:49 Labs: BMP 12/08/23 06:49 Sodium 141 Potassium 4.1 Chloride 106 Carbon Dioxide 24 BUN 19 H Creatinine 1.62 H Calcium 9.1 Microbiology Microbiology Results: Microbiology 12/06/23 22:58 Urine clean catch - Clean Catch Midstream Urine Culture - Preliminary Gram negative do Assessment and Plan (1) Cerebral infarction: Qualifiers: Cerebral infarction mechanism: vascular occlusion Precerebral and cerebral artery: carotid artery Laterality of affected vessel: right Qualified Code(s): I63.231 - Cerebral infarction due to unspecified occlusion or stenosis of right carotid arteries Status: Acute (2) CVA (cerebral vascular accident): Status: Acute (3) Pyelonephritis: Status: Acute (4) HIV infection: Status: Acute Plan She has CVA,not related to OI likely as may be familial as well taking medication regularly. Check CD4 count and viral load Continue Biktarvy Continue Mepron. If seizures or any other unusual neurologic issues may benefit from LP and further testing but on needed anticoagulation here hopefully no need for LP. Change po Cefriaxone to po cephalosporin total 7 d Will check syphilis test./
[2023-12-09 04:00] VITALS: BP 109/58; PULSE 54; RESP 18; TEMP 36.7; O2SAT 95
[2023-12-09] MEDS: Enoxaparin Sodium 60 MG/0.6 ML SYRINGE 35 MG SUBCUT ×2 (06:10→17:47)
[2023-12-09] MEDS: Fluticasone Propionate 100 MCG BLST.W.DEV 1 PUFF INHALE (07:17)
[2023-12-09 07:18] VITALS: PULSE 54; RESP 18; O2SAT 96
[2023-12-09 07:37] VITALS: BP 119/62; PULSE 52; RESP 18; TEMP 36.7; O2SAT 94
[2023-12-09] MEDS: 0.9 % Sodium Chloride 1,000 ML 125 ML IVCONT ×2 (08:29→16:53)
[2023-12-09] MEDS: Aspirin Enteric Coated 81 MG TABLET.DR PO (08:30)
[2023-12-09] MEDS: Atorvastatin Calcium 40 MG TABLET PO (08:30)
[2023-12-09] MEDS: Cholecalciferol (Vitamin D3) 25 MCG TABLET PO (08:30)
[2023-12-09] MEDS: Bictegrav/Emtricit/Tenofov Ala TABLET 1 TAB PO (08:30)
[2023-12-09] MEDS: Fluconazole 100 MG TABLET 200 MG PO (08:30)
[2023-12-09 08:31] LABS: Anion Gap 12 (12-20); Blood Urea Nitrogen 15 mg/dL (9-16); Carbon Dioxide 21 mmol/L (22-29); Chloride 113 mmol/L (96-108); Creatinine Clr Calc Pharmacy 31.2; Estimated Glomerular Filt Rate 51; Glucose Random 81 mg/dL (60-115); Potassium 4.1 mmol/L (3.3-5.1); Sodium 142 mmol/L (135-145)
[2023-12-09] MEDS: Atovaquone 750 MG/5 ML ORAL.SUSP 1500 MG PO (08:31)
[2023-12-09 08:43] LABS: Calcium 8.2 mg/dL (8.4-10.2)
--- NOTE | 2023-12-09 10:21 | HO.PM.IMPN ---
Subjective Subjective Date of Service: 12/09/23 Interval History: f/u on acute stroke with left sided weakness, facial droop and right carotid thrombosis and UTI in hiv patient Patient still has weakness in the left hand and facial droop seems, she says it has been like this for a week, no fever, urine culture= gram negative do, renal failure resolved, BP is bettr Physical Exam Vital Signs: Vital Signs: Last Vital Signs Temp 98.1 F 12/09/23 07:37 Pulse 52 12/09/23 07:37 Resp 18 12/09/23 07:37 BP 119/62 12/09/23 07:37 Pulse Ox 94 12/09/23 07:37 O2 Del Method Room Air 12/09/23 07:37 BMI result Body Mass Index 16.0 Const: Other: General: AO X 3, no acute distress Resp: CTA bilateral CVS: S1,S2,RRR GI: +BS, NT, no distention Skin: No rash Neuro: weakness in the distal hand hand, hand drop like, not able to move it, and some facial droop, normal speech Psych: appropriate affect Objective Data Active Medications Acetaminophen (Acetaminophen 325 Mg Tablet) 650 mg PO Q6H PRN PRN Reason: Pain, Mild (Pain Scale 1-3), fever or headache Last Admin: 12/08/23 01:21 Dose: 650 mg Documented By: OSMAR Albuterol Sulfate (Albuterol Sulfate 90 Mcg 8 Gm Inhaler) 2 puff INHALE Q4H PRN PRN Reason: Shortness Of Breath Or Wheezing Aspirin (Aspirin Enteric Coated 81 Mg Tablet.) 81 mg PO DAILY [facility] Last Admin: 12/09/23 08:30 Dose: 81 mg Documented By: VENTURA Atorvastatin Calcium (Atorvastatin Calcium 40 Mg Tablet) 40 mg PO DAILY [facility] Last Admin: 12/09/23 08:30 Dose: 40 mg Documented By: VENTURA Atovaquone (Atovaquone 750 Mg/5 Ml Oral.Susp) 1,500 mg PO DAILY [facility] Last Admin: 12/09/23 08:31 Dose: 1,500 mg Documented By: VENTURA Betamethasone Dipropion Augmented (Betamethasone Dip Aug 0.05% Cr 15 Gm Tube) 1 appl TOPICAL DAILY PRN PRN Reason: eczema Bictegravir/Emtricitabine/Tenofovir (Bictegrav/Emtricit/Tenofov Ala Tablet) 1 tab PO DAILY [facility] Last Admin: 12/09/23 08:30 Dose: 1 tab Documented By: VENTURA Calcium Carbonate (Calcium Carbonate 750 Mg Tab.Chew) 750 mg PO Q4H PRN PRN Reason: Heartburn Enoxaparin Sodium (Enoxaparin Sodium 60 Mg/0.6 Ml Syringe) 35 mg SUBCUT Q12H [facility] Last Admin: 12/09/23 06:10 Dose: 35 mg Documented By: OSMAR Fluconazole (Fluconazole 100 Mg Tablet) 200 mg PO DAILY [facility] Last Admin: 12/09/23 08:30 Dose: 200 mg Documented By: VENTURA Fluticasone Propionate (Fluticasone Propionate 100 Mcg Blst.W.Dev) 1 puff INHALE DAILY [facility] Last Admin: 12/09/23 07:17 Dose: 1 puff Documented By: JEIMY Ceftriaxone Sodium 1 gm/ (Sodium Chloride) 50 mls @ 100 mls/hr IV Q24H [facility] Last Infusion: 12/09/23 02:31 Dose: Infused Documented By: OSMAR Sodium Chloride (Ns) 1,000 mls @ 125 mls/hr IVCONT .Q8H [facility] Last Admin: 12/09/23 08:29 Dose: 125 mls/hr Documented By: VENTURA Magnesium Hydroxide (Milk Of Magnesia 30 Ml Oral.Susp) 30 ml PO DAILY PRN PRN Reason: Constipation Melatonin (Melatonin 3 Mg Tablet) 6 mg PO BEDTIME PRN PRN Reason: Insomnia Ondansetron HCl (Ondansetron Hcl 4 Mg/2 Ml Vial) 4 mg IVPUSH Q8H PRN PRN Reason: Nausea and Vomiting Last Admin: 12/08/23 13:53 Dose: 4 mg Documented By: DALIA Vitamin D (Cholecalciferol (Vitamin D3) 25 Mcg Tablet) 25 mcg PO DAILY [facility] Last Admin: 12/09/23 08:30 Dose: 25 mcg Documented By: VENTURA Labs 12/07/23 06:10 12/09/23 07:58 Labs: Laboratory Results - last 24 hr 12/09/23 07:58 Anion Gap 12 Estim Creat Clear Calc 31.2 Estimated GFR 51 Random Glucose 81 Calcium 8.2 L D Microbiology Microbiology Results: Microbiology 12/06/23 22:58 Urine Culture - Preliminary Urine clean catch - Clean Catch Midstream Gram negative do Assessment and Plan (1) CVA (cerebral vascular accident): Status: Acute Plan 58-year-old female with pertinent history of HIV, asthma not on home oxygen, severe protein calorie malnutrition, CKD stage 3 who presents to the emergency department evaluation of left hand weakness, facial droop Acute CVA with left sided weakness and numbness, slur speech. CTA show right M2 occlusion and subocclusive thrombus in the right internal carotid arter Patient could not tolerate MRI and thus been treateded with antipletlets (Plavix and ASA), statin and anticoagulaion per neuro for 3 months Vascular surgery eval can be done on outpatient basis. Echo to be done. Neuro checks. PT/OT, stroke education prior to discharge.. Starting therapeutic lovenox, ASA Acute UTI fever, urine culture growin gram negative do, IV ceftriaxone while in the hospital. No sepsis. ID recommendation noted. CD4 pending CKD stage [address], resolved with IVF, stop fluid HIV: continue HAART Severe protein calorie malnutrition: Consulting nutrition, ensur Asthma: No exacerbation during admission. Continue home inhalers DVT prophylaxis: Lovenox Full code Need for inaptient: Acute stroke management and UTI getting IV Abx in an HIV patient PT is recommending acut inpatient rehab, she is agreable Quality Stroke Does the patient have a stroke diagnosis?: No VTE Prior VTE?: No VTE Risk Level:: Medical - moderate - high VTE Device Contraindication: Treatment Not Indicated VTE Drug Contraindication: N/A - Med Ordered
[2023-12-09 11:37] VITALS: BP 105/57; PULSE 57; RESP 17; TEMP 36.3; O2SAT 94
[2023-12-09 15:43] VITALS: BP 111/59; PULSE 52; RESP 19; TEMP 36.3; O2SAT 93
[2023-12-09 19:47] VITALS: BP 108/67; PULSE 60; RESP 16; TEMP 36.8; O2SAT 98
--- NOTE | 2023-12-09 23:53 | PC.NURSE ---
Assumed care of patient at 19:00. Please see shift assessment for full details. Bed alarm on and safety measures in place. Handoff report given 23:30.
[2023-12-10] VITALS (7 sets, daily range): BP systolic 114–138; BP diastolic 60–75; PULSE 47–54; RESP 16–20; TEMP 36.1–36.7; O2SAT 96–99
[2023-12-10] MEDS: 0.9 % Sodium Chloride 1,000 ML 125 ML IVCONT (00:08)
[2023-12-10] MEDS: cefTRIAXone sodium 1 GM in 0.9 % Sodium Chloride 50 ML IV (00:23)
[2023-12-10 05:54] LABS: Hematocrit 29.8 % (37.0-47.0); Mean Corpuscular HGB Conc 33.6 g/dl (31.0-35.0); Mean Corpuscular Volume 101.4 fL (80.0-98.0); Mean Platelet Volume 9.5 fL (9.4-12.3); Platelet Count 311 X10*3/uL (160-400); Red Blood Count 2.94 X10*6/uL (4.20-5.50); White Blood Count 5.9 X10*3/uL (4.8-10.8)
[2023-12-10] MEDS: Enoxaparin Sodium 60 MG/0.6 ML SYRINGE 35 MG SUBCUT (06:04)
[2023-12-10 06:06] LABS: Anion Gap 11 (12-20); Blood Urea Nitrogen 14 mg/dL (9-16); Carbon Dioxide 21 mmol/L (22-29); Chloride 116 mmol/L (96-108); Estimated Glomerular Filt Rate 54; Glucose Random 81 mg/dL (60-115); Potassium 4.3 mmol/L (3.3-5.1); Sodium 144 mmol/L (135-145)
[2023-12-10 08:05] LABS: Syphilis Screen Nonreactive (Nonreactive)
[2023-12-10] MEDS: Atovaquone 750 MG/5 ML ORAL.SUSP 1500 MG PO (08:18)
[2023-12-10] MEDS: Fluconazole 100 MG TABLET 200 MG PO (08:19)
[2023-12-10] MEDS: Acetaminophen 325 MG TABLET 650 MG PO (08:19)
[2023-12-10] MEDS: Cholecalciferol (Vitamin D3) 25 MCG TABLET PO (08:20)
[2023-12-10] MEDS: Atorvastatin Calcium 40 MG TABLET PO (08:20)
[2023-12-10] MEDS: Bictegrav/Emtricit/Tenofov Ala TABLET 1 TAB PO (08:20)
[2023-12-10] MEDS: Aspirin Enteric Coated 81 MG TABLET.DR PO (08:20)
[2023-12-10] MEDS: Fluticasone Propionate 100 MCG BLST.W.DEV 1 PUFF INHALE (08:36)
--- NOTE | 2023-12-10 08:57 | HO.PM.IMPN ---
Subjective Subjective Date of Service: 12/10/23 Interval History: f/u on acute stroke with left sided weakness, facial droop and right carotid thrombosis and UTI in hiv patient Her symptoms remains the same Physical Exam Vital Signs: Vital Signs: Last Vital Signs Temp 98.0 F 12/10/23 07:44 Pulse 52 12/10/23 08:38 Resp 17 12/10/23 08:38 BP 122/64 12/10/23 07:44 Pulse Ox 99 12/10/23 07:44 O2 Del Method Room Air 12/10/23 07:44 BMI result Body Mass Index 16.0 Const: Other: General: AO X 3, no acute distress Resp: CTA bilateral CVS: S1,S2,RRR GI: +BS, NT, no distention Skin: No rash Neuro: weakness in the distal hand hand, hand drop like, not able to move it, and some facial droop, normal speech Psych: appropriate affect Objective Data Active Medications Acetaminophen (Acetaminophen 325 Mg Tablet) 650 mg PO Q6H PRN PRN Reason: Pain, Mild (Pain Scale 1-3), fever or headache Last Admin: 12/10/23 08:19 Dose: 650 mg Documented By: DALIA Albuterol Sulfate (Albuterol Sulfate 90 Mcg 8 Gm Inhaler) 2 puff INHALE Q4H PRN PRN Reason: Shortness Of Breath Or Wheezing Aspirin (Aspirin Enteric Coated 81 Mg Tablet.) 81 mg PO DAILY [facility] Last Admin: 12/10/23 08:20 Dose: 81 mg Documented By: DALIA Atorvastatin Calcium (Atorvastatin Calcium 40 Mg Tablet) 40 mg PO DAILY [facility] Last Admin: 12/10/23 08:20 Dose: 40 mg Documented By: DALIA Atovaquone (Atovaquone 750 Mg/5 Ml Oral.Susp) 1,500 mg PO DAILY [facility] Last Admin: 12/10/23 08:18 Dose: 1,500 mg Documented By: DALIA Betamethasone Dipropion Augmented (Betamethasone Dip Aug 0.05% Cr 15 Gm Tube) 1 appl TOPICAL DAILY PRN PRN Reason: eczema Bictegravir/Emtricitabine/Tenofovir (Bictegrav/Emtricit/Tenofov Ala Tablet) 1 tab PO DAILY [facility] Last Admin: 12/10/23 08:20 Dose: 1 tab Documented By: DALIA Calcium Carbonate (Calcium Carbonate 750 Mg Tab.Chew) 750 mg PO Q4H PRN PRN Reason: Heartburn Enoxaparin Sodium (Enoxaparin Sodium 60 Mg/0.6 Ml Syringe) 35 mg SUBCUT Q12H [facility] Last Admin: 12/10/23 06:04 Dose: 35 mg Documented By: JAVAD Fluconazole (Fluconazole 100 Mg Tablet) 200 mg PO DAILY [facility] Last Admin: 12/10/23 08:19 Dose: 200 mg Documented By: DALIA Fluticasone Propionate (Fluticasone Propionate 100 Mcg Blst.W.Dev) 1 puff INHALE DAILY [facility] Last Admin: 12/10/23 08:36 Dose: 1 puff Documented By: NILESH Ceftriaxone Sodium 1 gm/ (Sodium Chloride) 50 mls @ 100 mls/hr IV Q24H [facility] Last Infusion: 12/10/23 01:09 Dose: Infused Documented By: JAVAD Magnesium Hydroxide (Milk Of Magnesia 30 Ml Oral.Susp) 30 ml PO DAILY PRN PRN Reason: Constipation Melatonin (Melatonin 3 Mg Tablet) 6 mg PO BEDTIME PRN PRN Reason: Insomnia Ondansetron HCl (Ondansetron Hcl 4 Mg/2 Ml Vial) 4 mg IVPUSH Q8H PRN PRN Reason: Nausea and Vomiting Last Admin: 12/08/23 13:53 Dose: 4 mg Documented By: DALIA Vitamin D (Cholecalciferol (Vitamin D3) 25 Mcg Tablet) 25 mcg PO DAILY [facility] Last Admin: 12/10/23 08:20 Dose: 25 mcg Documented By: DALIA Labs 12/10/23 05:44 12/10/23 05:44 Labs: Laboratory Results - last 24 hr 12/08/23 12/10/23 14:40 05:44 MCV 101.4 H MCH 34.0 H MCHC 33.6 RDW 12.0 Plt Count 311 MPV 9.5 Absolute Nucleated RBC 0.000 Nucleated RBC % (auto) 0.0 Anion Gap 11 L Estim Creat Clear Calc 33.0 Estimated GFR 54 Random Glucose 81 Calcium 8.0 L T.pallidum Ab (EIA) Nonreactive Microbiology Microbiology Results: Microbiology 12/06/23 22:58 Urine Culture - Final Urine clean catch - Clean Catch Midstream Escherichia coli Assessment and Plan (1) CVA (cerebral vascular accident): Status: Acute Plan 58-year-old female with pertinent history of HIV, asthma not on home oxygen, severe protein calorie malnutrition, CKD stage 3 who presents to the emergency department evaluation of left hand weakness, facial droop Acute CVA with left sided weakness and numbness, slur speech. CTA show right M2 occlusion and subocclusive thrombus in the right internal carotid arter Patient could not tolerate MRI. Neurology recommends anticoagulation for 3 months, on lovenox now and will change to eliquis, continue baby ASA, statin. Vascular surgery consult for carotid thrombosis Acute UTI fever, urine culture growin gram negative do, IV ceftriaxone while in the hospital. No sepsis. ID recommendation noted. CD4 pending CKD stage [address], resolved with IVF HIV: continue HAART, Atovaquone for PCP prophylaxis, CD4 pending Severe protein calorie malnutrition: Consulting nutrition, ensure Asthma: No exacerbation during admission. Continue home inhalers DVT prophylaxis: Lovenox Full code Need for inaptient: Acute stroke management and UTI getting IV Abx in an HIV patient PT is recommending acute inpatient rehab, she is agreeable Quality Stroke Does the patient have a stroke diagnosis?: No VTE Prior VTE?: No VTE Risk Level:: Medical - moderate - high VTE Device Contraindication: Treatment Not Indicated VTE Drug Contraindication: N/A - Med Ordered
--- NOTE | 2023-12-10 09:33 | MHC.STROKE ---
Met with patient to provide education regarding stroke and plan of care. Pt was working with PT at the time of my arrival. She was ambulatory with walker. Pt awake, alert and oriented. Speech was clear. She was able to answer all of my questions without difficulty. We discussed her stroke and Stroke Pamphlet provided. I also provided a picture to help explain the location of her stroke and the deficits that can occur when a stroke occurs in that area of the brain. Pt was receptive to the education. We discussed risk factors and how to help prevent strokes in the future. Pt reported no questions. Pt stated to this nurse that she feels that her speech is better and she appears to have increased strength to that left arm. Will continue to assist as needed.
--- NOTE | 2023-12-10 09:41 | P.DS_ITS ---
DS: Providers Provider Date of Service: 12/10/23 Date of admission: 12/07/23 00:38 Primary care physician: Theodora Sampson MD Consults: 12/07/23 00:40 Consult to Neurology Routine Consulting Provider: [facility] Reason for consultation: acute/subacute cva 12/07/23 00:50 Consult to Vascular Surgery Routine Consulting Provider: [facility] Reason for consultation: Subocclusive thrombus right ICA 12/07/23 17:07 Consult to Infectious Diseases Routine Consulting Provider: [facility] Reason for consultation: HIV, now UTI Has provider been notified: No DS: Diagnosis Discharge Diagnosis (1) CVA (cerebral vascular accident): Status: Acute DS: Summary Hospital Course Hospital Course: admission hpi Extremity weakness This is a 58-year-old female with pertinent history of HIV, asthma not on home oxygen, severe protein calorie malnutrition, CKD stage 3 who presents to the emergency department evaluation of extremity weakness. Patient states she 1st noticed left upper extremity weakness about 1 week prior to presentation. It was sudden in onset and has been progressive since. Patient is unable to move her left wrist and fingers. Patient states on the day of presentation she developed slurred speech and facial droop. No vision changes. No other extremity weakness. Patient states she has been compliant with HAART. She denies fever, chills, chest discomfort, palpitations, shortness of breath, abdominal pain or changes in bowel habits. She endorses dysuria and urinary hesitancy. Patient states she had been coughing for a while which has now resolved. In the emergency department, imaging with subacute occlusion of right ICA. Also hypodensity noted in the right frontal/parietal and parieto-occipital region concerning for CVA. Hospital course: The patient presented with facial droop and left hand weakness that had been ongoing for nearly a week before coming in. Work-up in the ED with a CT of the head revealed hypodensity with loss of vasques-white differentiation in the posterior right frontal lobe, right parietal lobe, and right parietal-occipital region. Findings are suspicious for acute/subacute infarction. A CTA of the head and neck showed the right M2 superior division is occluded in its mid aspect. Subocclusive filling defect at the right jugular bulb suspicious for nonocclusive venous thrombus. An MRI was non-diagnostic as the patient could not tolerate the procedure. The finding of carotid thrombus was discussed with [facility] as well as our local neurolo gist, with no indication for intervention. Instead, the neurologist recommended 3 months of anticoagulation. Thus, she was initiated on Lovenox and will be transitioned to Apixaban. She will continue ASA and Lipitor. Acute febrile UTI/pyelonephritis:Urine culture growing E. coli sensitive to Ceftriaxone, which she is treated with. No bacteremia. Will treat for a total of 14 days, change to Ceftin at discharge. No component of sepsis, and presently afebrile. CKD stage [address]:Resolved with IV fluids. HIV:Continue HAART, Atovaquone for PCP prophylaxis, CD4 pending. Severe protein-calorie malnutrition:Dietary supplements. Asthma:No exacerbation during admission. Continue home inhalers. Disposition to acute inpatient rehab Time Attestation Discharge Coordination Time (in mins): 40 Quality: Safe Use of Opioids Does Pt have an Active Cancer Diagnosis on the Problem List?: No Quality: Stroke Does the patient have a stroke diagnosis?: Yes Reason for No Anti-thrombotic at DC: N/A - Med Ordered Reason for No Anticoagulant at DC: N/A - Med Ordered Reason Not Initiating IV-Tpa: Contraindicated Reason for No Anti-thrombotic by Day Two: N/A - Med Ordered Reason for No Statin at DC: N/A - Med Ordered Physical Exam Vital Signs: Vital Signs: Last Vital Signs Temp 98.0 F 12/10/23 07:44 Pulse 52 12/10/23 08:38 Resp 17 12/10/23 08:38 BP 122/64 12/10/23 07:44 Pulse Ox 99 12/10/23 07:44 O2 Del Method Room Air 12/10/23 07:44 BMI result Body Mass Index 16.0 Const: Other: General: AO X 3, no acute distress Resp: CTA bilateral CVS: S1,S2,RRR GI: +BS, NT, no distention Skin: No rash Neuro: weakness in the distal hand hand, hand drop like, not able to move it, and some facial droop, normal speech Psych: appropriate affect DS: Data Data Completed and Pending Completed studies during hospitalization [Text1]: Procedures Transfusion of Nonautologous Red Blood Cells into Peripheral Vein, Percutaneous Approach (09/15/23) Labs on day of discharge: Laboratory Results - last 24 hr 12/08/23 12/10/23 14:40 05:44 WBC 5.9 RBC 2.94 L Hgb 10.0 L Hct 29.8 L MCV 101.4 H MCH 34.0 H MCHC 33.6 RDW 12.0 Plt Count 311 MPV 9.5 Absolute Nucleated RBC 0.000 Nucleated RBC % (auto) 0.0 Sodium 144 Potassium 4.3 Chloride 116 H Carbon Dioxide 21 L Anion Gap 11 L BUN 14 Creatinine 1.04 Estim Creat Clear Calc 33.0 Estimated GFR 54 Random Glucose 81 Calcium 8.0 L T.pallidum Ab (EIA) Nonreactive Discharge Plan Discharge Anticipated Discharge Date/Time: 12/10/23 09:53 Patient Disposition: Xfer Inpatient Rehab Fac Discharge Diagnosis: Acute stroke, UTI/pyelonephritis, court Referrals: [facility] [Outside] - 1 Week Theodora Sampson MD [Primary Care Provider] - 1 Week Discharge Medications: New atorvastatin 40 mg Tablet 40 mg PO DAILY Qty: 90 0RF aspirin 81 mg Tablet,Delayed Release (Dr/Ec) 81 mg PO DAILY Qty: 90 0RF Eliquis 5 mg Tablet 5 mg PO BID Qty: 180 0RF cefuroxime axetil 250 mg tablet 250 mg PO BID Qty: 20 0RF nicotine 7 mg/24 hr patch 24 hour 1 patch transdermal Q24H Qty: 30 0RF Continued ondansetron 4 mg tablet,disintegrating 4 mg PO Q8H PRN (Reason: nausea and vomiting) Qty: 10 0RF fluconazole 100 mg Tablet 200 mg PO DAILY Qty: 180 0RF clobetasol 0.05 % ointment 1 appl topical DAILY PRN (Reason: eczema) Rx Instructions: apply after showers cholecalciferol (vitamin D3) 25 mcg (1,000 unit) tablet 25 mcg PO DAILY Arnuity Ellipta 100 mcg/actuation blister with device 1 inh INHALATION DAILY albuterol sulfate 90 mcg/actuation HFA aerosol inhaler 2 puff inhalation Q4H PRN (Reason: Shortness Of Breath Or Wheezing) Biktarvy 50-200-25 mg tablet 1 tab PO DAILY 30 Days Qty: 30 5RF Discharge Orders: Discharge Order (Routine); Ordered 12/10/23 Ordered By: Genaro Whitaker Diet: Advance to usual diet Activity on Discharge: As tolerated Stand Alone Forms: Patient Portal Discharge page Print Language: Occitan Care Plan Goals: Recovery from symptoms of stroke, gaining hand functions for ADLS Health Concerns: Acute embolic stroke with left hand weakness and facial droop Plan of Treatment: take eliquis for 3 months and following that continue aspirin indefinitely take Lipitor as recommended Participate in PT, OT and other form of therapy offered at rehab take Ceftin for uti Assessment: see above Discharge Date/Time: 12/10/23 17:07
--- NOTE | 2023-12-10 11:19 | MHC.CLN ---
F/U QUALIFIES SEVERELY MALNOURISHED IN THE CONTEXT OF CHRONIC ILLNESS PO INTAKE 100% X 4 MEALS DIET RX: REGULAR DIET-APPROPRIATE PT REPORTS TAKES ENSURE SUPPLEMENT AT HOME ENSURE TID PROVIDES 1050 KCALS, 60 G PROTEIN MONITOR PO INTAKE AND ENCOURAGE SUPPLEMENTS
--- NOTE | 2023-12-10 11:47 | P.CONGS_ITS ---
History of Present Illness Consult details Consult date: 12/10/23 Narrative: Pleasant 58-year-old female presented to the hospital with left upper extremity weakness. She reported that it was sudden onset. She was subsequently worked up and was found to have right carotid thrombus. She has been subsequently anticoagulated and now presents for vascular evaluation. Upon discussion with her she reports she smokes about 5 cigarettes a day and is a nondiabetic. She has regained some functionality of that left upper extremity but is unable to squeeze objects. Review of Systems 2 Review of Systems: Yes all other systems are reviewed and are negative Constitutional: Constitutional: Reports no additional constitutional complaints ENT: Reports Normal hearing present Cardiovascular: Cardiovascular: Denies chest pain, Denies chest pain at rest, Denies chest pain with activity and Denies pedal edema Respiratory: Respiratory: Denies cough Gastrointestinal: Gastrointestinal: Denies abdominal pain Musculoskeletal: Musculoskeletal: Denies abnormal gait, Denies muscle cramps and Denies radiating pain into limb Integumentary/Breasts: Skin/Breast: Denies skin ulcer and Denies wounds Neurologic: Reports Normal hearing present and Denies abnormal gait Psychiatric: Psychiatric: Reports no additional psychiatric complaints PMFSH Past Medical History Medical History Shingles Asthma CKD (chronic kidney disease) HIV infection Family History Family History Maternal Aunt Breast cancer Paternal Grandmother Stomach cancer Family history: reviewed and not pertinent Surgical History Surgical History Hx of esophagogastroduodenoscopy Social History Social History Household Members: None Housing: Apartment Do you presently have visiting nurse or other home services: No Patient Tobacco Use Status: Former Tobacco user Tobacco use type: Cigarette service: No Current occupational exposures/hazards: No Meds Allergies Allergy/AdvReac Type Severity Reaction Status Date / Time nevirapine [From VIRAMUNE] Allergy Unknown UNKNOWN Verified 12/06/23 19:02 penicillin V Allergy Unknown itchy Verified 12/06/23 19:02 Penicillins [PENICILLINS] Allergy Unknown N/A Verified 12/06/23 19:02 sulfamethoxazole Allergy Unknown UNKNOWN, Verified 12/06/23 19:02 [From BACTRIM] upset stomach trimethoprim [From BACTRIM] Allergy Unknown UNKNOWN Verified 12/06/23 19:02 Active Medications: Current Medications Acetaminophen (Acetaminophen 325 Mg Tablet) 650 mg PO Q6H PRN PRN Reason: Pain, Mild (Pain Scale 1-3), fever or headache Last Admin: 12/10/23 08:19 Dose: 650 mg Albuterol Sulfate (Albuterol Sulfate 90 Mcg 8 Gm Inhaler) 2 puff INHALE Q4H PRN PRN Reason: Shortness Of Breath Or Wheezing Apixaban (Apixaban 5 Mg Tablet) 5 mg PO BID [facility] Aspirin (Aspirin Enteric Coated 81 Mg Tablet.Dr) 81 mg PO DAILY [facility] Last Admin: 12/10/23 08:20 Dose: 81 mg Atorvastatin Calcium (Atorvastatin Calcium 40 Mg Tablet) 40 mg PO DAILY [facility] Last Admin: 12/10/23 08:20 Dose: 40 mg Atovaquone (Atovaquone 750 Mg/5 Ml Oral.Susp) 1,500 mg PO DAILY [facility] Last Admin: 12/10/23 08:18 Dose: 1,500 mg Betamethasone Dipropion Augmented (Betamethasone Dip Aug 0.05% Cr 15 Gm Tube) 1 appl TOPICAL DAILY PRN PRN Reason: eczema Bictegravir/Emtricitabine/Tenofovir (Bictegrav/Emtricit/Tenofov Ala Tablet) 1 tab PO DAILY [facility] Last Admin: 12/10/23 08:20 Dose: 1 tab Calcium Carbonate (Calcium Carbonate 750 Mg Tab.Chew) 750 mg PO Q4H PRN PRN Reason: Heartburn Fluconazole (Fluconazole 100 Mg Tablet) 200 mg PO DAILY [facility] Last Admin: 12/10/23 08:19 Dose: 200 mg Fluticasone Propionate (Fluticasone Propionate 100 Mcg Blst.W.Dev) 1 puff INHALE DAILY [facility] Last Admin: 12/10/23 08:36 Dose: 1 puff Ceftriaxone Sodium 1 gm/ (Sodium Chloride) 50 mls @ 100 mls/hr IV Q24H [facility] Last Infusion: 12/10/23 01:09 Dose: Infused Magnesium Hydroxide (Milk Of Magnesia 30 Ml Oral.Susp) 30 ml PO DAILY PRN PRN Reason: Constipation Melatonin (Melatonin 3 Mg Tablet) 6 mg PO BEDTIME PRN PRN Reason: Insomnia Ondansetron HCl (Ondansetron Hcl 4 Mg/2 Ml Vial) 4 mg IVPUSH Q8H PRN PRN Reason: Nausea and Vomiting Last Admin: 12/08/23 13:53 Dose: 4 mg Vitamin D (Cholecalciferol (Vitamin D3) 25 Mcg Tablet) 25 mcg PO DAILY [facility] Last Admin: 12/10/23 08:20 Dose: 25 mcg Home Medications ?Medication ?Instructions ?Recorded ?Confirmed ?Last Taken ?Type albuterol sulfate 90 mcg/actuation 2 puff inhalation Q4H PRN 11/16/20 12/06/23 12/05/23 History aerosol inhaler Shortness Of Breath Or Wheezing cholecalciferol (vitamin D3) 25 25 mcg PO DAILY 12/06/23 12/06/23 12/05/23 History mcg (1,000 unit) tablet clobetasol 0.05 % topical ointment 1 appl topical DAILY PRN eczema 12/06/23 12/06/23 12/05/23 History fluticasone furoate 100 1 inh inhalation DAILY 12/06/23 12/06/23 12/05/23 History mcg/actuation blister powder for inhalation (Arnuity Ellipta) Physical Exam 2 Vital Signs: Vital Signs: Last Vital Signs Temp 97.9 F 12/10/23 11:15 Pulse 49 L 12/10/23 11:15 Resp 20 12/10/23 11:15 BP 114/64 12/10/23 11:15 Pulse Ox 96 12/10/23 11:15 O2 Del Method Room Air 12/10/23 11:15 BMI result Body Mass Index 16.0 Const: General: cooperative, healthy appearing and comfortable O rientation/consciousness: oriented to person, oriented to place and oriented to time HEENT: Head: Yes normal to inspection Neck: Neck: Yes normal visual inspection Carotids: no bruits Chest: Chest palpation & inspection: normal inspection of the chest Resp: Effort & Inspection: normal respiratory effort and able to speak in complete sentences Auscultation: clear to auscultation bilaterally, no crackles, no rales, no rhonchi and no wheezes Cardio: Rate: regular rate Rhythm: regular rhythm Heart sounds: S1 normal heart sound present and S2 normal heart sound present Bruits: no carotid bruits Peripheral pulses: Peripheral pulses 2+ throughout GI: Inspection: Yes normal to inspection Skin: Wounds: no wounds Hair: normal Neuro: General: oriented to person, oriented to place and oriented to time Cranial nerves: Yes CN's II-XII intact bilaterally and Yes Normal hearing present Cognition (Neuro): normal cognition Motor exam (neuro): 5/5 motor strength present throughout Extrem: Other: venous exam: No significant superficial varicosities or spider telangiectasias, minimal edema General: No clubbing, No cyanosis and No edema Psych: Appearance: grossly normal Mental Status: mental status grossly normal Speech and movement: Normal speech and movement present Results Labs 12/10/23 05:44 12/10/23 05:44 Labs: Abnormal lab results 12/10/23 Range/Units 05:44 RBC 2.94 L (4.20-5.50) X10*6/uL Hgb 10.0 L (12.0-16.0) g/dl Hct 29.8 L (37.0-47.0) % MCV 101.4 H (80.0-98.0) fL MCH 34.0 H (27.0-33.0) pg Chloride 116 H (96-108) mmol/L Carbon Dioxide 21 L (22-29) mmol/L Anion Gap 11 L (12-20) Calcium 8.0 L (8.4-10.2) mg/dL Short CBC 12/10/23 Range/Units 05:44 WBC 5.9 (4.8-10.8) X10*3/uL Hgb 10.0 L (12.0-16.0) g/dl Hct 29.8 L (37.0-47.0) % Plt Count 311 (160-400) X10*3/uL BMP 12/10/23 05:44 Sodium 144 Potassium 4.3 Chloride 116 H Carbon Dioxide 21 L BUN 14 Creatinine 1.04 Calcium 8.0 L Urine 12/06/23 Range/Units 21:34 Urine Color Yellow Urine Appearance Turbid Urine pH 5.5 (5.0-9.0) Ur Specific [place] 1.015 (1.005-1.025) Urine Protein 100 (2+) H (Neg-Trace) mg/dL Urine Glucose (UA) Negative (Negative) mg/dL All other labs normal. Imaging Additional studies: CT scan does demonstrate right carotid thrombus MRI was reviewed as well. Assessment and Plan (1) Stroke due to stenosis of right carotid artery: Status: Acute Plan In short patient has had a stroke. Unclear what the source of this thrombus was. I do agree with 3 months of formal anticoagulation per Neurology. She can follow up with us as an outpatient where we can reimage her and come up with a follow-up plan regarding that right carotid thrombus in terms of long-term anticoagulation. No surgical intervention indicated at the current time. Once again she can follow up with us as an outpatient. Thank you for allowing us to assist in her care. If there are any questions or concerns please do not hesitate to contact us Procedures Date of Service Date of Service: 12/10/23
--- NOTE | 2023-12-10 14:07 | MHC.CM.PN ---
Pt is medically cleared for discharge to acute rehab today. Pt accepted bed offer from [facility] and insurance auth has been obtained. Pt will transport there via [facility] today at 4pm. Pt aware and in agreement with discharge plan.
[2023-12-11 14:29] LABS: HIV RNA PCR Qn Copies 1520 copies/mL (NOT DETECTED); HIV RNA PCR Qn Log Copies 3.18 (NOT DETECTED)
[2023-12-12 17:39] LABS: Absolute CD3 Count 758 cells/uL (840-3060); Absolute CD4 Count 38 cells/uL (490-1740); Absolute CD8 Count 687 cells/uL (180-1170); Absolute Lymphocytes 891 cells/uL (850-3900); CD4 CD8 Ratio 0.06 (0.86-5.00); Percent CD3 Cells 85 % (57-85); Percent CD4 Cells 4 % (30-61); Percent CD8 Cells 77 % (12-42)
== END 2023-12-10 17:07 | DRG 45 ==
LOC: HO.ED 19:49 → HO.EDOVER 12-07 00:46 → HO.IMC 12-07 07:31
PROVIDERS: Internal Medicine; Physician Assistant; Admitting Provider Student in an Organized Health Care Education/Training Program; Emergency Provider Emergency Medicine; PCP Family Medicine; Referring Provider Family Medicine; Visit Provider Internal Medicine
DX: I63.031 Cerebral infarction due to thrombosis of right carotid artery (principal); B20 Human immunodeficiency virus [HIV] disease; E88.A Wasting disease (syndrome) due to underlying condition; N10 Acute pyelonephritis; G81.94 Hemiplegia, unspecified affecting left nondominant side; R20.0 Anesthesia of skin; R29.707 NIHSS score 7; J45.909 Unspecified asthma, uncomplicated; B96.20 Unspecified Escherichia coli [E. coli] as the cause of diseases classified elsewhere; Z68.1 Body mass index [BMI] 19.9 or less, adult; Z87.891 Personal history of nicotine dependence; Z79.899 Other long term (current) drug therapy
CPT/HCPCS: 36415; 70496; 70498; 70551; 80048; 80053; 80061; 81001; 83036; 84484; 85025; 85027; 85610; 85730; 86359; 86360; 86780; 87086; 87088; 87186; 87536; 93005; 93306; 94640; 97116; 97162; 97166; 97530; 99285; J0696; J1650; J2405; Q9957; Q9967

== ENCOUNTER → 2023-12-06 19:02 | Outpatient (BNV) | payer MEDICAID, SELFPAY | PROVIDERS: Admitting Provider Student in an Organized Health Care Education/Training Program; Emergency Provider Emergency Medicine; PCP Family Medicine; Visit Provider Internal Medicine | DX: R00.1 Bradycardia, unspecified (principal) | CPT/HCPCS: 93010 ==

== ENCOUNTER 2023-12-07 00:38 | Outpatient (BNV) | payer MEDICAID, SELFPAY | END 2023-12-07 07:00 | PROVIDERS: Admitting Provider Student in an Organized Health Care Education/Training Program; Emergency Provider Emergency Medicine; PCP Family Medicine; Visit Provider Internal Medicine | DX: I63.9 Cerebral infarction, unspecified (principal) | CPT/HCPCS: 93306 ==

== ENCOUNTER → 2023-12-07 00:38 | Outpatient (BNV) | payer MEDICAID, SELFPAY | PROVIDERS: Admitting Provider Student in an Organized Health Care Education/Training Program; Emergency Provider Emergency Medicine; PCP Family Medicine; Visit Provider Internal Medicine | DX: I63.231 Cerebral infarction due to unspecified occlusion or stenosis of right carotid arteries (principal); I63.9 Cerebral infarction, unspecified; N12 Tubulo-interstitial nephritis, not specified as acute or chronic; B20 Human immunodeficiency virus [HIV] disease | CPT/HCPCS: 99222 ==

== ENCOUNTER → 2023-12-07 00:38 | Outpatient (BNV) | payer MEDICAID, SELFPAY | PROVIDERS: Admitting Provider Student in an Organized Health Care Education/Training Program; Emergency Provider Emergency Medicine; Visit Provider Student in an Organized Health Care Education/Training Program | DX: I63.9 Cerebral infarction, unspecified (principal) | CPT/HCPCS: 99223; 99232; 99239; 99499 ==

== ENCOUNTER → 2023-12-07 00:38 | Outpatient (BNV) | payer MEDICAID, SELFPAY | PROVIDERS: Admitting Provider Student in an Organized Health Care Education/Training Program; Emergency Provider Emergency Medicine; PCP Family Medicine; Visit Provider Surgery Vascular Surgery | DX: I63.231 Cerebral infarction due to unspecified occlusion or stenosis of right carotid arteries (principal) | CPT/HCPCS: 99222 ==

== ENCOUNTER → 2023-12-07 00:38 | Outpatient (BNV) | payer MEDICAID, SELFPAY | PROVIDERS: Admitting Provider Student in an Organized Health Care Education/Training Program; Emergency Provider Emergency Medicine; PCP Family Medicine; Visit Provider Psychiatry & Neurology Neurology | DX: I63.231 Cerebral infarction due to unspecified occlusion or stenosis of right carotid arteries (principal) | CPT/HCPCS: 99223 ==

== ENCOUNTER 2024-01-03 13:28 | Outpatient (REF) | payer MEDICAID, SELFPAY ==
[2024-01-03 16:00] LABS: MANUAL DIFF FLAG NO
[2024-01-03 16:07] LABS: Basophils Absolute Auto 0.1 X10*3/uL (0.0-0.2); Basophils Percent Auto 0.5 % (0-2); Eosinophils Absolute Auto 0.6 X10*3/uL (0.0-0.4); Eosinophils Percent Auto 5.8 % (0-4); Hematocrit 35.5 % (37.0-47.0); Hemoglobin 12.7 g/dl (12.0-16.0); Imm Gran Abs Auto 0.03 X10*3/uL (0.00-0.03); Imm Gran Pct Auto 0.3 % (0.0-0.4); Lymphocytes Absolute Auto 3.4 X10*3/uL (1.2-4.9); Lymphocytes Percent Auto 35.9 % (20-40); Mean Corpuscular HGB Conc 35.8 g/dl (31.0-35.0); Mean Corpuscular Hemoglobin 36.1 pg (27.0-33.0); Mean Corpuscular Volume 100.9 fL (80.0-98.0); Mean Platelet Volume 11.5 fL (9.4-12.3); Monocytes Absolute Auto 0.8 X10*3/uL (0.1-1.2); Monocytes Percent Auto 8.7 % (2-11); Neutrophils Absolute Auto 4.7 x10*3/uL (2.0-8.3); Neutrophils Percent Auto 48.8 % (45-73); Platelet Count 201 X10*3/uL (160-400); Red Blood Count 3.52 X10*6/uL (4.20-5.50); White Blood Count 9.5 X10*3/uL (4.8-10.8)
[2024-01-03 16:21] LABS: Alanine Aminotransferase 11 U/L (0-31); Alkaline Phosphatase 69 U/L (39-117); Anion Gap 15 (12-20); Aspartate Amino Transferase 25 U/L (5-31); Bilirubin Total 0.2 mg/dL (0.0-1.0); Blood Urea Nitrogen 41 mg/dL (9-16); Calcium 9.9 mg/dL (8.4-10.2); Carbon Dioxide 27 mmol/L (22-29); Chloride 104 mmol/L (96-108); Estimated Glomerular Filt Rate 31; Glucose Random 94 mg/dL (60-115); Potassium 4.8 mmol/L (3.3-5.1); Sodium 141 mmol/L (135-145); Total Protein 8.6 g/dL (6.5-8.0)
[2024-01-05 19:13] LABS: HIV RNA PCR Qn Copies 80 copies/mL (NOT DETECTED)
[2024-01-08 16:48] LABS: Absolute CD3 Count 2729 cells/uL (840-3060); Absolute CD4 Count 135 cells/uL (490-1740); Absolute CD8 Count 2457 cells/uL (180-1170); Absolute Lymphocytes 3047 cells/uL (850-3900); CD4 CD8 Ratio 0.05 (0.86-5.00); Percent CD3 Cells 90 % (57-85); Percent CD4 Cells 4 % (30-61); Percent CD8 Cells 81 % (12-42)
== END 2024-01-03 13:29 | disposition home or self-care (01) ==
LOC: HO.HHCL 13:28
PROVIDERS: Visit Provider Internal Medicine
DX: B20 Human immunodeficiency virus [HIV] disease (principal)
CPT/HCPCS: 36415; 80053; 85025; 86359; 86360; 87536

== ENCOUNTER 2024-01-08 16:50 | Outpatient (REF) | payer MEDICAID, SELFPAY ==
[2024-01-08 17:58] LABS: Appearance Urine Turbid; Color Urine Yellow; Glucose Urine UA Negative (Negative); Leukocyte Esterase Urine Large (3+) (Negative); Nitrite Urine Negative (Negative); PH 6.5 (5.0-9.0); Specific Gravity - Urine 1.015 (1.005-1.025); UMIC TRIGGER UACC YES; Urine Blood Moderate (2+) (Negative); Urine Ketones Negative (Negative); Urine Protein 30 (1+) mg/dL (Neg-Trace)
[2024-01-08 18:03] LABS: Bacteria Urine 4+ (None Seen); RBC Urine >20 /HPF (0-2); Squamous Epithelial Cell Urine 0-2 /HPF (0-2); UACC Culture Trigger YES; WBC Urine >50 /HPF (0-5)
== END 2024-01-08 16:51 | disposition home or self-care (01) ==
LOC: HO.HHCLNP 16:50
PROVIDERS: Visit Provider Family Medicine
DX: R35.0 Frequency of micturition (principal)
CPT/HCPCS: 81001; 87086; 87088; 87186

== ENCOUNTER 2024-02-19 09:34 | Outpatient (AMB) | payer MEDICAID, SELFPAY ==
--- NOTE | 2024-02-19 09:56 | A.OFFVIS_ITS ---
Intake Visit Reasons: Subocclusive thrombus right ICA Intake Note: Patient presents for subocclusive thrombus right ICA. Patient has no complaints. Allergies nevirapine [From VIRAMUNE] Allergy (Unknown, Verified 02/19/24 09:57) UNKNOWN penicillin V Allergy (Unknown, Verified 02/19/24 09:57) itchy Penicillins [PENICILLINS] Allergy (Unknown, Verified 02/19/24 09:57) N/A sulfamethoxazole [From BACTRIM] Allergy (Unknown, Verified 02/19/24 09:57) UNKNOWN, upset stomach trimethoprim [From BACTRIM] Allergy (Unknown, Verified 02/19/24 09:57) UNKNOWN HPI HPI Subocclusive thrombus right ICA: Details: Very complex 58-year-old female with a history of CKD HIV presented to the emergency room for left upper extremity weakness. She had been subsequently worked up and actually underwent a CT scan with unusual findings. At that time she was being worked up for weakness of the left upper extremity for about a week, slurred speech, and facial droop. She was subsequently worked up with the CT scan and now presents to us for vascular evaluation. [facility] Medical History Shingles Asthma CKD (chronic kidney disease) HIV infection Surgical History Hx of esophagogastroduodenoscopy Family History Maternal Aunt Breast cancer Paternal Grandmother Stomach cancer Social History Household Members: None Housing: Apartment Do you presently have visiting nurse or other home services: No Patient Tobacco Use Status: Former Tobacco user Tobacco use type: Cigarette service: No Current occupational exposures/hazards: No Review of Systems Const All systems reviewed & are unremarkable except as noted in HPI and below Reports no additional complaints ENT Reports Normal hearing present Card Denies chest pain, Denies chest pain at rest, Denies chest pain with activity and Denies pedal edema Resp Denies cough GI Denies abdominal pain Musc Denies abnormal gait, Denies muscle cramps and Denies radiating pain into limb Skin/Breast Denies skin ulcer and Denies wounds Neuro Reports Normal hearing present and Denies abnormal gait Psych Reports no additional complaints Physical Exam Const General: cooperative, healthy appearing and comfortable Orientation/consciousness: oriented to person, oriented to place and oriented to time HEENT Head: Yes normal to inspection Neck Neck: Yes normal visual inspection Carotids: no bruits Chest Chest palpation & inspection: normal inspection of the chest Resp Effort & Inspection: normal respiratory effort and able to speak in complete sentences Auscultation: clear to auscultation bilaterally, no crackles, no rales, no rhonchi and no wheezes Cardio Rate: regular rate Rhythm: regular rhythm Heart sounds: S1 normal heart sound present and S2 normal heart sound present Bruits: no carotid bruits Peripheral pulses: Peripheral pulses 2+ throughout GI Inspection: Yes normal to inspection Skin Wounds: no wounds Hair: normal Neuro General: oriented to person, oriented to place and oriented to time Cranial nerves: Yes CN's II-XII intact bilaterally and Yes Normal hearing present Cognition (Neuro): normal cognition Motor exam (neuro): 5/5 motor strength present throughout Extrem Other: venous exam: No significant superficial varicosities or spider telangiectasias, minimal edema General: No clubbing, No cyanosis and No edema Psych Appearance: grossly normal Mental Status: mental status grossly normal Speech and movement: Normal speech and movement present Results Reviewed Results Reviewed: CT scan dated 12/06/2023 demonstrates no significant carotid stenosis. There was concern of a subacute thrombus in the right jugular bulb. Unclear if this was arterial in [place] or venous as the dictation from Dr. Kasi Bundy in is inconclusive. The dictation is extremely poor. Several attempts were made to reach out to him to get a reread with no response. [facility] [place] services were notified and they did not respond Assessment & Plan Assessment & Plan (1) Stroke due to stenosis of right carotid artery: Code(s): I63.231 - Cerebral infarction due to unspecified occlusion or stenosis of right carotid arteries Category: Medical Plan: In short unclear of what the CT scan findings really mean. I have taken the liberty of ordering repeat ultrasound testing. We can further elucidate if there is any true stenosis and if there is any thrombus within the jugular which I highly doubt. Patient will follow up with us after testing. Should there be any interval issues happy to see her back sooner. Thank you for allowing us to assist in her care. Orders: Orders US carotid duplex BI 1 Week I63.231 - Cerebral infarction due to unspecified occlusion or stenosis of right carotid arteries Coding Level of Care Code Est Pt Level 4 (82085) Diagnoses Stroke due to stenosis of right carotid artery I63.231
== END 2024-02-19 10:14 | disposition home or self-care (01) ==
PROVIDERS: PCP Family Medicine; Referring Provider Family Medicine; Visit Provider Surgery Vascular Surgery
DX: I63.231 Cerebral infarction due to unspecified occlusion or stenosis of right carotid arteries (principal)
CPT/HCPCS: 99214

== ENCOUNTER → 2024-02-19 09:34 | Outpatient (BNVA) | payer MEDICAID, SELFPAY | PROVIDERS: PCP Family Medicine; Visit Provider Surgery Vascular Surgery | DX: Z86.73 Personal history of transient ischemic attack (TIA), and cerebral infarction without residual deficits (principal); Z87.891 Personal history of nicotine dependence | CPT/HCPCS: 99212 ==

== ENCOUNTER 2024-02-27 10:27 | Outpatient (REF) | payer MEDICAID, SELFPAY ==
--- NOTE | ~2024-02-27 | US_ITS ---
EXAMINATION: US EXTRACRANIAL CAROTID DUPLEX, BILATERAL CLINICAL INFORMATION: CVA due to stenosis of right carotid artery. COMPARISON: CTA neck 12/06/2023. TECHNIQUE: Real-time ultrasound and Doppler techniques (integrating B-mode 2-D vascular images, Doppler spectral analysis and color-flow Doppler imaging) were utilized to interrogate the extracranial carotid arteries, the vertebral arteries and proximal subclavian arteries bilaterally. The degree of stenosis is determined by criteria similar to NASCET. FINDINGS: Right Side: 1. There is no atherosclerotic plaque seen in the bifurcation/proximal ICA region. 2. The common carotid artery PSV proximally is 95 cm/s and distally 78 cm/s. 3. The proximal internal carotid artery velocities are 78 cm/s systolic and 28 cm/s diastolic. 4. The proximal external carotid artery PSV is 70 cm/s. 5. The vertebral artery shows antegrade flow. 6. The subclavian artery waveforms are normal. Left Side: 1. There is no atherosclerotic plaque seen in the bifurcation/proximal ICA region. 2. The common carotid artery PSV proximally is 101 cm/s and distally 91 cm/s. 3. The proximal internal carotid artery velocities are 80 cm/s systolic and 41 cm/s diastolic. 4. The proximal external carotid artery PSV is 66 cm/s. 5. The vertebral artery shows antegrade flow. 6. The subclavian artery waveforms are normal. US/US carotid duplex BI IMPRESSION: 1. RIGHT: Normal right internal carotid artery without atherosclerotic plaque or hemodynamically significant stenosis. Previously seen intraluminal thrombus on CTA 12/06/2023 in the mid right cervical internal carotid artery segment does not have a sonographic correlate. 2. LEFT: Normal left internal carotid artery without atherosclerotic plaque or hemodynamically significant stenosis. 3. Incidental note made of a 1.2 cm TR 3 mixed cystic/solid nodule in the left thyroid. No imaging follow-up is recommended as per ACR TI-RADS. Follow up if clinically indicated. Electronically signed by: Eusebio Lindo MD 02/27/2024 12:13 PM EDT RP
== END 2024-02-27 10:28 | disposition home or self-care (01) ==
LOC: HO.US 10:27
PROVIDERS: PCP Family Medicine; Visit Provider Surgery Vascular Surgery
DX: I63.231 Cerebral infarction due to unspecified occlusion or stenosis of right carotid arteries (principal)
CPT/HCPCS: 93880

== ENCOUNTER 2024-03-25 09:34 | Outpatient (AMB) | payer MEDICAID, SELFPAY ==
--- NOTE | 2024-03-25 09:46 | A.OFFVIS_ITS ---
Intake Visit Reasons: follow up s/p Carotid US 02/27/24 Intake Note: Patient presents for follow up carotid US. No complaints. Allergies nevirapine [From VIRAMUNE] Allergy (Unknown, Verified 03/25/24 09:47) UNKNOWN penicillin V Allergy (Unknown, Verified 03/25/24 09:47) itchy Penicillins [PENICILLINS] Allergy (Unknown, Verified 03/25/24 09:47) N/A sulfamethoxazole [From BACTRIM] Allergy (Unknown, Verified 03/25/24 09:47) UNKNOWN, upset stomach trimethoprim [From BACTRIM] Allergy (Unknown, Verified 03/25/24 09:47) UNKNOWN HPI HPI follow up s/p Carotid US 02/27/24: Details: Very pleasant 58-year-old female presents for follow-up evaluation regarding carotid disease. She was originally worked up and underwent a CT scan which was for left upper extremity weakness slurred speech and a facial droop. This appears to have all resolved. She only has some index finger weakness on the left upper extremity. She underwent a CT scan on 12/06/2023. This was quite unusual that she had concerns of a subacute thrombus in the right jugular bulb. Unclear as to what this exactly was. Of note she is currently asymptomatic from this. She now presents to us for follow-up with ultrasound. [facility] Medical History Shingles Asthma CKD (chronic kidney disease) HIV infection Surgical History Hx of esophagogastroduodenoscopy Family History Maternal Aunt Breast cancer Paternal Grandmother Stomach cancer Social History Household Members: None Housing: Apartment Do you presently have visiting nurse or other home services: No Patient Tobacco Use Status: Former Tobacco user Tobacco use type: Cigarette service: No Current occupational exposures/hazards: No Review of Systems Const All systems reviewed & are unremarkable except as noted in HPI and below Reports no additional complaints ENT Reports Normal hearing present Card Denies chest pain, Denies chest pain at rest, Denies chest pain with activity and Denies pedal edema Resp Denies cough GI Denies abdominal pain Musc Denies abnormal gait, Denies muscle cramps and Denies radiating pain into limb Skin/Breast Denies skin ulcer and Denies wounds Neuro Reports Normal hearing present and Denies abnormal gait Psych Reports no additional complaints Physical Exam Const General: cooperative, healthy appearing and comfortable Orientation/consciousness: oriented to person, oriented to place and oriented to time HEENT Head: Yes normal to inspection Neck Neck: Yes normal visual inspection Carotids: no bruits Chest Chest palpation & inspection: normal inspection of the chest Resp Effort & Inspection: normal respiratory effort and able to speak in complete sentences Auscultation: clear to auscultation bilaterally, no crackles, no rales, no rhonchi and no wheezes Cardio Rate: regular rate Rhythm: regular rhythm Heart sounds: S1 normal heart sound present and S2 normal heart sound present Bruits: no carotid bruits Peripheral pulses: Peripheral pulses 2+ throughout GI Inspection: Yes normal to inspection Skin Wounds: no wounds Hair: normal Neuro General: oriented to person, oriented to place and oriented to time Cranial nerves: Yes CN's II-XII intact bilaterally and Yes Normal hearing present Cognition (Neuro): normal cognition Motor exam (neuro): 5/5 motor strength present throughout Extrem Other: venous exam: No significant superficial varicosities or spider telangiectasias, minimal edema General: No clubbing, No cyanosis and No edema Psych Appearance: grossly normal Mental Status: mental status grossly normal Speech and movement: Normal speech and movement present Results Reviewed Results Reviewed: Carotid testing dated 02/27/2024 demonstrates right side and left side normal carotids with no intraluminal thrombus as noted on CT 12/06/2023. Written report and images were reviewed Assessment & Plan Assessment & Plan (1) CVA (cerebral vascular accident): Code(s): I63.9 - Cerebral infarction, unspecified Category: Medical Qualifiers: CVA mechanism: other Qualified Code(s): I63.89 - Other cerebral infarc tion Plan: In short patient is negative for any significant carotid stenosis. There is no evidence of thrombus on imaging as well. I do believe the original CT scan may be an over-read or misinterpretation of swirling of contrast. We did reach out to [facility] regarding clarification regarding this and they did not respond on several attempts. At the current time I do believe this is all negative. She will follow up with us on an as-needed basis. Thank you for allowing us to assist in her care. If there are any questions or concerns please do not hesitate to contact us. Coding Level of Care Code Est Pt Level 4 (82956) Diagnoses Cerebrovascular accident (CVA) due to other mechanism I63.89 CVA mechanism: other
== END 2024-03-25 09:53 | disposition home or self-care (01) ==
PROVIDERS: PCP Family Medicine; Visit Provider Surgery Vascular Surgery
DX: I63.89 Other cerebral infarction (principal)
CPT/HCPCS: 99214

== ENCOUNTER → 2024-03-25 09:34 | Outpatient (BNVA) | payer MEDICAID, SELFPAY | PROVIDERS: PCP Family Medicine; Visit Provider Surgery Vascular Surgery | DX: I63.89 Other cerebral infarction (principal) | CPT/HCPCS: 99212 ==

== ENCOUNTER 2024-04-28 08:55 | Outpatient (REF) | payer MEDICAID, SELFPAY ==
[2024-04-28 11:15] LABS: MANUAL DIFF FLAG NO
[2024-04-28 11:38] LABS: Basophils Percent Auto 0.5 % (0-2); Eosinophils Absolute Auto 1.1 X10*3/uL (0.0-0.4); Eosinophils Percent Auto 14.6 % (0-4); Imm Gran Abs Auto 0.01 X10*3/uL (0.00-0.03); Imm Gran Pct Auto 0.1 % (0.0-0.4); Lymphocytes Absolute Auto 3.3 X10*3/uL (1.2-4.9); Mean Corpuscular HGB Conc 34.2 g/dl (31.0-35.0); Mean Corpuscular Hemoglobin 35.1 pg (27.0-33.0); Mean Corpuscular Volume 102.7 fL (80.0-98.0); Mean Platelet Volume 10.7 fL (9.4-12.3); Monocytes Absolute Auto 0.8 X10*3/uL (0.1-1.2); Monocytes Percent Auto 10.7 % (2-11); Neutrophils Absolute Auto 2.3 x10*3/uL (2.0-8.3); Neutrophils Percent Auto 31.1 % (45-73); Platelet Count 205 X10*3/uL (160-400); Red Cell Distribution Width 11.9 % (11.0-16.0); White Blood Count 7.6 X10*3/uL (4.8-10.8)
[2024-04-28 11:52] LABS: Alanine Aminotransferase 16 U/L (0-31); Alkaline Phosphatase 124 U/L (39-117); Anion Gap 14 (12-20); Aspartate Amino Transferase 30 U/L (5-31); Bilirubin Total 0.2 mg/dL (0.0-1.0); Blood Urea Nitrogen 30 mg/dL (9-16); Calcium 9.1 mg/dL (8.4-10.2); Carbon Dioxide 24 mmol/L (22-29); Chloride 107 mmol/L (96-108); Estimated Glomerular Filt Rate 38; Glucose Random 98 mg/dL (60-115); Potassium 3.9 mmol/L (3.3-5.1); Sodium 141 mmol/L (135-145); Total Protein 7.5 g/dL (6.5-8.0)
[2024-04-28 12:16] LABS: Hepatitis A Antibody IgG REACTIVE (Nonreactive)
[2024-04-28 12:17] LABS: HBS Num1 0.72 mIU/mL (0-7.99); HBc Num1 0.19 S/CO (0.00-0.79); HBsAGNum1 0.42 S/CO (0.00-0.99); Hepatitis B Core Antibody Nonreactive (Nonreactive); Hepatitis B Surface Antigen Negative (Negative); ~HepC Num1 0.16 S/CO (0.00-0.79); ~Hepatitis B Surface Antibody NONREACTIVE (Nonreactive); ~Hepatitis C Antibody Nonreactive (Nonreactive)
[2024-04-28 12:21] LABS: Syphilis Screen Nonreactive (Nonreactive)
[2024-04-30 15:23] LABS: HIV RNA PCR Qn Copies 280 copies/mL (NOT DETECTED); HIV RNA PCR Qn Log Copies 2.45 (NOT DETECTED)
[2024-05-01 03:23] LABS: TS Negative Control Passed; TS Panel A 0; TS Panel B 0; TS Positive Control Passed; TSpotTB Negative (Negative)
[2024-05-03 17:42] LABS: Absolute CD3 Count 2396 cells/uL (840-3060); Absolute CD4 Count 245 cells/uL (490-1740); Absolute CD8 Count 2079 cells/uL (180-1170); Absolute Lymphocytes 2791 cells/uL (850-3900); CD4 CD8 Ratio 0.12 (0.86-5.00); Percent CD3 Cells 86 % (57-85); Percent CD4 Cells 9 % (30-61); Percent CD8 Cells 74 % (12-42)
== END 2024-04-28 08:56 | disposition home or self-care (01) ==
LOC: HO.HHCL 08:55
PROVIDERS: Visit Provider Internal Medicine
DX: Z21 Asymptomatic human immunodeficiency virus [HIV] infection status (principal)
CPT/HCPCS: 36415; 80053; 85025; 86359; 86360; 86481; 86704; 86706; 86708; 86780; 86803; 87340; 87536